=== PATIENT | female | born 1945 | race Caucasian/White ===

== ENCOUNTER 2016-07-04 22:10 | Inpatient (IN) | payer OTHER ==
--- NOTE | ~2016-07-04 | CN ---
Consultation Report [facility] [address] [place]. [address] NAME: CHARLENE OWENS : 41 STATUS : ADM IN PAT#: [id number] AGE: 70 ADM/REG DATE : 07/04/16 MR#: [id number] REPORT SERV DATE: 07/09/16 DICTATED BY: AKIRA LOZANO DATE: 07/08/16 REPORT STATUS : Draft TRANSCRIBED BY: MODL DATE: 07/08/16 NEPHROLOGY CONSULT DATE OF CONSULTATION: 07/08/2016 REASON FOR CONSULTATION: Acute renal failure. HISTORY OF PRESENT ILLNESS: Old records from recent [facility] admission were reviewed in preparation for this consultation. The patient was seen previously by Dr. Damon. She was admitted to [facility] on 07/02/2016 with acute shortness of breath as well as nausea and vomiting and abdominal pain. She had recently had bacteremia and grown out MSSE and blood cultures. She was treated through that and had been doing well. She had undergone EGD on 07/02/2016 showed nonerosive esophagitis and gastritis. Within 24 hours after that, she developed right upper arm weakness and head CT showed no acute process. Creatinine had worsened from baseline of 1.36 when she came in on 06/25/2016 and had gradually increased to a level of 2.4 mg/dL on 07/04/2016 when my partner saw her at [facility], [place]. She was transferred to [facility] with a creatinine of 3 mg/dL on 07/05/2016. The creatinine had stayed around that level for the subsequent two days and starting late in the day on 07/06/2016. She was started on bolus Bumex infusions. She had prompt diuresis of about 3400 mL over the ensuing 36 to 48 hours. Creatinine has dropped down to 2.35 mg/dL today. She developed ventricular tachycardia late in the day today. Did not have any obvious episodes of hypotension that were visualized. Her systolic got as low as perhaps 110 mmHg. She maintains urinary output on Bumex infusion of 0.5 mg/hour. She was finally converted to sinus rhythm with procainamide. She was seen by Dr. Gutierrez. She is tentatively planned for coronary arteriography tomorrow with left-sided heart catheterization, and I would assume ventriculogram. She has substantial systolic dysfunction noted on echocardiogram that apparently has worsened since she was at [facility]. There is certainly concern that she is having ischemic cardiomyopathy that is acute. She remains in acute renal failure from the original admission at [facility]. Again, she is nonoliguric on loop diuretics. The patient and her family members understand there is significant risk with IV contrast in the setting of ongoing acute renal failure. They understand the risk of her possibly needing dialysis. PAST MEDICAL HISTORY: 1. Longstanding diabetes. 2. Hypertension. 3. Hyperlipidemia. 4. Recent MSSE bacteremia on blood cultures at [facility] which apparently had cleared. She had a transesophageal echocardiogram that was negative for endocarditis. 5. Atrial fibrillation noted at [facility]. 6. COPD. 7. Remote cervical cancer. 8. Acute systolic congestive heart failure as described. 9. Peripheral vascular disease. Consultation Report [facility] [address] [place]. [address] NAME: CHARLENE OWENS : 41 STATUS : ADM IN PAT#: [id number] AGE: 70 ADM/REG DATE : 07/04/16 MR#: [id number] REPORT SERV DATE: 07/09/16 DICTATED BY: AKIRA LOZANO DATE: 07/08/16 REPORT STATUS : Draft TRANSCRIBED BY: JEROME DATE: 07/08/16 HOME MEDICATIONS: Benazepril, gabapentin, glimepiride, metoprolol, simvastatin. Current MAR was reviewed. Notably she is still receiving cefepime and also, she is on a Bumex continuous infusion 0.5 mg/hour. ALLERGIES: NO KNOWN DRUG ALLERGIES. SOCIAL HISTORY: She is . Has two grown children and several grandchildren. Also, twin sister. She is a 50-pack a year smoker and was still smoking up to the time of admission. She does not abuse alcohol or any other illicit substances. FAMILY HISTORY: Her mother of complications related to breast cancer. She had a sibling with diabetes. REVIEW OF SYSTEMS: GENERAL: no fevers or chills during her time at [facility]. GI: Very poor appetite. She is actually receiving intravenous amino acids. She denies vomiting or diarrhea at this time. : She has a Austin catheter in place. RESPIRATORY: She notes substantial dyspnea on exertion with conversation. She is getting a system with nasal cannula oxygen and maintaining 94% saturation with 4 L per minute. She is getting placed a little bit later tonight on some BiPAP to assist with breathing while she tries to rest. CARDIOVASCULAR: At present, she denies chest pain. She does have peripheral edema and had noted that she was brought over to [facility]. All other review of systems was negative. PHYSICAL EXAMINATION: VITAL SIGNS: Temperature 97.7, heart rate 79, respiratory rate 24, blood pressure 122/64. GENERAL: She is chronically ill-appearing, elderly female, who is alert, lucid, conversational and in no distress. HEENT: Normocephalic, atraumatic. External ears and nose normal. Sinuses were nontender. Oropharynx, mucous membranes are slightly dry. Hyperemic with some wrinkling over the tongue. No acute exudates. She has some missing teeth. Eye exam, lids and conjunctivae are free of any hemorrhage or exudates. Sclerae anicteric. Pupils are equal, round, and reactive to light. Extraocular motor function is intact. NECK: Easily movable without meningismus. No palpable masses or nodules. Trachea midline. Minimal jugular venous distention presently. LYMPHATIC: Anterior-posterior neck, supraclavicular, abdominal regions were free of lymphadenopathy. RESPIRATORY: She is tachypneic, but is able to uphold conversation. Auscultation reveals basilar crackles on both sides. No wheezes at present. Breath sounds are somewhat distant. CARDIOVASCULAR: Regular rate and rhythm is appreciated with no evident murmur by my examination, though I suspect,I should have heard one based on the echocardiogram findings. She has 2+ pitting dependent edema bilateral lower extremities. No peripheral cyanosis. ABDOMEN: Soft, mildly distended. Positive bowel sounds noted. No guarding to palpation. Consultation Report [facility] [address] [place]. [address] NAME: CHARLENE OWENS : 41 STATUS : ADM IN PAT#: [id number] AGE: 70 ADM/REG DATE : 07/04/16 MR#: [id number] REPORT SERV DATE: 07/09/16 DICTATED BY: AKIRA LOZANO DATE: 07/08/16 REPORT STATUS : Draft TRANSCRIBED BY: JEROME DATE: 07/08/16 No ascites on percussion. SKIN: No rashes breakdown or discoloration. Skin turgor was within normal limits. STUDIES: Chest x-ray, positive cardiomegaly noted with left basilar opacity noted which could represent effusion or infiltrate or other consolidation. Urinalysis from 07/06/2016, specific gravity 1.012, pH 5, negative protein, negative glucose, trace ketones, large amount of leukocyte esterase, large amount of hemoglobin, negative nitrites. Microscopy revealed 36 red blood cells, 8 white blood cells, 17 is squamous epithelial cells, and 28 hyaline casts. Chemistry: Sodium 139, potassium 3.6, chloride 98, CO2 of 28, BUN 49, creatinine 2.35, glucose 163 lactate 1.1. Albumin 2.5, phosphorus 3.3. CBC: White cell count 11.5, hemoglobin 10.6, hematocrit 30.5, platelets 441. IMPRESSIONS: 1. Acute kidney injury, which may represent acute tubular necrosis to some degree. She also may have a cardiorenal-type picture with on going systolic dysfunction and severe mitral regurgitation noted on echocardiogram. Left ventricular ejection fraction apparent was down to 30% on her echocardiogram yesterday. 2. Acute systolic congestive heart failure with acute arrhythmias and also severe mitral regurgitation noted on echocardiogram with suspected papillary muscle dysfunction. She is suspected of having occult coronary ischemia causing all of this. 3. Ventricular tachycardia episode today, it is finally treated successfully with procainamide infusion. 4. Recent atrial fibrillation. 5. Recent MSSE bacteremia, which is apparently clear. 6. Possible chronic kidney disease, stage III. 7. Peripheral edema, which the patient indicates is definitely improved over the past 36 hours. She has diuresed 3400 mL on IV Bumex infusions. She is very high risk for acute kidney injury upon current acute kidney injury in the setting of IV contrast administration. But my opinion is that she needs to study and other than dialysis catheter placement really nothing else can be done to prepare us for what might happen after she receives more IV contrast. I explained the very high risk of renal failure after IV contrast to the patient and her family members. They understand that there is risk that she may need hemodialysis or other renal replacement therapy following the procedures. Apparently, all are prepared to undertake this risk. PLAN/RECOMMENDATION: 1. Proceed with left heart catheterization tomorrow if desired. 2. Vas-Cath placement can be undertaken tomorrow or can wait until we have lab work back the following day. 3. Follow volume status and lab work daily. 4. I am okay with the current Bumex infusion 0.5 mg/hour. She will be able to better Consultation Report [facility] [id number] [place]. [address] NAME: CHARLENE OWENS : 41 STATUS : ADM IN [facility]#: [id number] AGE: 70 ADM/REG DATE : 07/04/16 MR#: [id number] REPORT SERV DATE: 07/09/16 DICTATED BY: AKIRA LOZANO DATE: 07/08/16 REPORT STATUS : Draft TRANSCRIBED BY: JEROME DATE: 07/08/16 tolerate coronary arteriogram if she has less propensity towards orthopnea during the study. 5. Our group will follow carefully. Thank you for consulting me in the care of this complicated patient. PAVAN/JEROME Akira Lozano M.D. / [id number] CC: Phan Dowd
--- NOTE | ~2016-07-04 | IDS ---
Interim Discharge Summary [facility] [address]. [address] NAME: CHARLENE OWENS : 41 STATUS : ADM IN [facility]#: [id number] AGE: 70 ADM/REG DATE : 07/04/16 MR#: [id number] REPORT SERV DATE: 07/19/16 DICTATED BY: ABEBE DAVID IV DATE: 07/18/16 REPORT STATUS : Draft TRANSCRIBED BY: JEROME DATE: 07/18/16 ADMISSION DATE: 07/04/2016 DISCHARGE DATE: ADMITTING DIAGNOSES: 1. Hypoxemic respiratory failure, now extubated. 2. Non-ST elevation myocardial infarction, requiring stents to both the right coronary artery and left circ. 3. Acute kidney injury, now on dialysis. 4. Chronic obstructive pulmonary disease. 5. Cerebrovascular disease and cervical spine disease with weakness and clonus of the lower extremities. 6. Right upper extremity deep vein thrombosis. 7. Atelectasis, possible effusion on the left. 8. Diabetes mellitus. 9. Elevated cholesterol. CONSULTANTS: 1. Cardiology on 07/06/2016. 2. Nephrology on 07/09/2016. 3. Neurology on 07/15/2016. PROCEDURES: The patient underwent MRI of the brain on 07/08/2016 demonstrating a microvascular disease. She had a swallow evaluation on 07/08/2016 which she passed. She had respiratory failure on 07/09/2016, requiring intubation and was extubated finally on 07/14/2016. She had a cardiac catheterization on 07/09/2016 with a stent to the RCA and then again on 07/11/2016 with stent to the left circ lesion. She had an ultrasound of her carotids on 07/10/2016 demonstrating a left carotid plaque. She had a PermCath placement on 07/13/2016 with CRRT initiated on that date. She had a MRI of the neck and brain demonstrating a left MCA stroke with some cervical stenosis. She had initial ultrasound on 07/12/2016 of both her upper and lower extremities which were negative, and she had a repeat ultrasound on 07/17/2016 demonstrating a right axillary and brachial thrombus for which she is on Eliquis. HOSPITAL COURSE: The patient was admitted and transferred by Dr. Dailey on 07/04/2016 from [facility], the patient with elevated troponins. She had elevated creatinine for which there was some delay in going to the laborer landscape. The patient had clinical deterioration over the ensuing days for which she underwent intubation on 07/09/2016. She ended up going to the laborer landscape which demonstrated coronary disease for which she underwent a staging angioplasty and stent to the RCA on 07/09/2016 and left circ on 07/11/2016. The patient had worsening renal function for which a PermCath was placed on the 07/13/2016, and she underwent CRRT initiated on the 07/13/2016 as well. She underwent daily weaning trials and was successfully extubated on 07/14/2016. On clinical exam, she is found to have bilateral lower extremity clonus with weakness in the right upper extremity. She previously had ultrasound as noted. We had Neurology consulted, and an MRI was ultimately obtained of the neck and the brain. This demonstrating findings of probable spinal stenosis as well as a Interim Discharge Summary [address]. [address] NAME: CHARLENE OWENS : 41 STATUS : ADM IN [facility]#: [id number] AGE: 70 ADM/REG DATE : 07/04/16 MR#: [id number] REPORT SERV DATE: 07/19/16 DICTATED BY: ABEBE DAVID IV DATE: 07/18/16 REPORT STATUS : Draft TRANSCRIBED BY: JEROME DATE: 07/18/16 previous stroke. She is currently on Plavix and aspirin for her vascular disease. She was successfully extubated on 07/14/2016 and had required BiPAP at nighttime, however, currently is refusing. She is on bronchodilator medications. She continued to have both clinical and radiographic evidence for left lower lobe atelectasis with possible effusion which will need to be followed. She is on EZPAP, bronchodilator medications as well as Acapella valve. The patient is now on hemodialysis which she receives three times a week and received today with determination of continued dialysis on whether she responds to diuretic therapy. GREGORY/JEROME Abebe David IV, M.D. / [id number] CC: Phan Dowd
--- NOTE | ~2016-07-04 | DS ---
Discharge Summary [facility] [address] [place]. [address] NAME: CHARLENE OWENS : 41 STATUS : ADM IN [facility]#: [id number] AGE: 70 ADM/REG DATE : 07/04/16 MR#: [id number] REPORT SERV DATE: 08/08/16 DICTATED BY: AKIRA SHORT DATE: 08/07/16 REPORT STATUS : Draft TRANSCRIBED BY: MODL DATE: 08/07/16 ADMISSION DATE: 07/04/2016 DISCHARGE DATE: ADDENDUM: This dictation is an addition to interim discharge summary dictated by Dr. Zuñiga on 08/05/2016. I assumed care of the patient on 08/05/2016. At the time of my assumption of care, the patient was status post a swallow study, which was positive for aspiration. The patient was placed n.p.o. and the patient and family were in the midst of discussions to determine the utility of PEG tube. Upon my resumption of care, I discussed the benefit versus risk of PEG tube placement. Family decided that they would go ahead and obtain a PEG tube. GI was consulted to assist with tube placement. Prior to PEG tube placement, a modified barium swallow study was ordered to definitively test for aspiration. The patient underwent the procedure and passed the swallow study. Recommendations were for the patient to be started on mechanical soft diet, which the patient was resumed. Given her history of GI bleed and given the anticipation of PEG tube placement, her anticoagulation for her acute DVT was held. Given that the patient no longer has evidence of GI bleed and given that there is no further need for a PEG tube study, the patient has been restarted on anticoagulation with Eliquis. Per recommendation by Physical Therapy, plan was to discharge the patient to [facility]. The patient has received insurance approval for facility. Given clearance by Cardiology and Nephrology and given her hemodynamic stability with completion of workup, the patient will be discharged to [facility]. Plan has been discussed with the patient, who voices understanding. DISCHARGE EXAM: VITAL SIGNS: Blood pressure 123/53 with a pulse of 93, respiration 16, O2 saturation 96%, temperature 97.6. GENERAL: The patient lying in bed, in no acute distress. Appears stated age. HEENT: Normocephalic, atraumatic. The patient appearing to be wearing nasal cannula. Trachea midline and symmetric. CHEST: Nontender to palpation. CARDIOVASCULAR: Regular rate and rhythm. S1, S2. No murmurs, rubs, or gallops. LUNGS: Anterior lung mata are clear to auscultation. The patient also had normal work of breathing. ABDOMEN: Obese. Positive bowel sounds. Nontender. Nondistended. NEUROLOGIC: Alert and oriented x3. Right-sided weakness noted. DISCHARGE MEDICATIONS: Aspirin 81 mg p.o. daily, amiodarone 200 mg p.o. twice a day, atorvastatin 80 mg p.o. at bedtime, Dulcolax 10 mg [place] daily, Carvedilol 12.5 mg p.o. twice a day, Plavix 75 mg p.o. daily, Colace 100 mg p.o. twice a day, ferrous sulfate 300 mg p.o. twice a day, insulin sliding scale, pantoprazole 40 mg p.o. before breakfast, simethicone 180 mg p.o. three times a day, budesonide 0.5 mg inhalation twice a day, DuoNebs 3 mL inhalation q.4 hours while awake, Eliquis 10 mg twice a day for seven days then stop and decrease dose to 5 mg b.i.d. DISPOSITION: The patient will be discharged to [facility]. Discharge Summary [address] [address] NAME: CHARLENE OWENS : 41 STATUS : ADM IN [facility]#: [id number] AGE: 70 ADM/REG DATE : 07/04/16 MR#: [id number] REPORT SERV DATE: 08/08/16 DICTATED BY: AKIRA SHORT DATE: 08/07/16 REPORT STATUS : Draft TRANSCRIBED BY: JEROME DATE: 08/07/16 ACTIVITY: As tolerated. DIET: Mechanical soft diet. Greater than 30 minutes was spent planning and coordinating discharge, medication reconciliation, writing prescription, and dictation of note. ELIO/JEROME Akira Short MD / [id number] CC: MD ELLEN Mackey
--- NOTE | ~2016-07-04 | CN ---
Consultation Report [facility] [address] [place]. [address] NAME: CHARLENE OWENS : 41 STATUS : ADM IN [facility]#: [id number] AGE: 70 ADM/REG DATE : 07/04/16 MR#: [id number] REPORT SERV DATE: 07/25/16 DICTATED BY: MALLORY CARTER DATE: 07/25/16 REPORT STATUS : Draft TRANSCRIBED BY: MODL DATE: 07/25/16 GI CONSULTATION. DATE OF CONSULTATION: 07/24/2016 REASON FOR CONSULTATION: Coffee-ground emesis. HISTORY OF PRESENT ILLNESS: Ms. Owens is a 70-year-old white female who initially presented in June with respiratory failure, was transferred from [facility] on 07/04/2016. Echocardiogram showed ischemic cardiomyopathy with an ejection fraction of 45% with mild pulmonary hypertension. Because of respiratory failure, she was placed on BiPAP, but needed to be intubated eventually and was admitted to the CCU. She was found to have an N-STEMI. She was started on Eliquis. She has been gradually improving throughout her hospitalization and is being evaluated by physical therapy. It was noted earlier this hospitalization, however, recently, but her abdomen particularly in the epigastrium was getting increasingly distended, and she was having some nausea. An NG tube was subsequently placed to low intermittent suction and earlier today (07/24/2016), she began to have coffee-ground output. Her last bowel movement was yesterday, was found to be brown. Denies any melena or hematochezia. Her vital signs have remained stable. Her H and H have also remained stable at 7.9 and 26.2. Her prior H and H were 7.2 and 23.5, platelets 285. Her last INR on 07/16 was 1.5, none has been drawn since. PAST MEDICAL HISTORY: Hypertension, diabetes, dyslipidemia, DVT, cervical cancer, symptomatic dysmotility. PAST SURGICAL HISTORY: Tonsillectomy, hysterectomy, laparoscopic cholecystectomy, appendectomy, left hand surgery. SOCIAL HISTORY: Continues to smoke a pack per day x55 years. FAMILY HISTORY: Breast cancer, diabetes. MEDICATIONS: Reviewed. ALLERGIES: REVIEWED. PHYSICAL EXAMINATION: VITAL SIGNS: The patient is afebrile. Her vital signs are stable. GENERAL: The patient is awake, alert, and oriented, has an NG tube to low intermittent suction. HEENT: Atraumatic, normocephalic. Anicteric. Mucous membranes moist. CARDIAC: S1, S2. CHEST: Poor inspiratory effort, but appears to be clear. ABDOMEN: Soft, obese, nontender, somewhat distended, but nontender. Bowel sounds Consultation Report [facility] [address] [place]. [address] NAME: CHARLENE OWENS : 41 STATUS : ADM IN PAT#: [id number] AGE: 70 ADM/REG DATE : 07/04/16 MR#: [id number] REPORT SERV DATE: 07/25/16 DICTATED BY: MALLORY CARTER DATE: 07/25/16 REPORT STATUS : Draft TRANSCRIBED BY: JEROME DATE: 07/25/16 hypoactive. LABORATORY DATA: Show WBC 6.8, hemoglobin 7.9, hematocrit 26.2, MCV 92.9, platelets 284. INR is 1.5. Sodium 142, potassium 4.4, chloride 107, bicarb 25, BUN 36, creatinine 4.41, glucose 123. IMPRESSION AND PLAN: Suspect upper gastrointestinal bleed. Continue serial H and H, and transfuse until hemoglobin above 7. We will definitely repeat PT/INR as her last INR was at 1.5 on 07/16. Her anticoagulation is for history DVT as well as her recent N-STEMI. We will plan for an EGD with anesthesia to sedate pending these results. Continue Protonix and supportive care. We will increase her Protonix. She is only on p.o. once daily currently. CATALINA/JEROME Mallory Carter MD / [id number] CC: MD Rob Mackey
--- NOTE | ~2016-07-04 | CN ---
Consultation Report [facility] [address] [place]. [address] NAME: CHARLENE OWENS : 41 STATUS : ADM IN PAT#: [id number] AGE: 70 ADM/REG DATE : 07/04/16 MR#: [id number] REPORT SERV DATE: 07/06/16 DICTATED BY: AN GUTIERREZ DATE: 07/05/16 REPORT STATUS : Draft TRANSCRIBED BY: JEROME DATE: 07/05/16 CARDIOLOGY CONSULTATION DATE OF CONSULTATION: INDICATION: Cardiomyopathy with EF 45%, elevated troponins. HISTORY: The patient is a 70-year-old white female, who is admitted from [facility]. She recounts visiting the emergency room on June 26, was told that she had the flu and was subsequently called back at 3 a.m. on June 27 for coagulase-negative staph in her blood cultures. She initially presented with nausea and vomiting. She was seen in consultation by Dr. Wilson due to the epigastric discomfort and elevated troponins. She described the pain as a sudden gripping cramping sensation in the epigastrium radiating to the right chest which occurred generally after eating. She had no exertional chest discomfort or prior cardiac history. She drifted in an out of atrial fibrillation. She has a 30-year history of tobacco use, 4 cigarettes per day or less. She has a history of hypertension, diabetes, and hyperlipidemia. CURRENT HOME MEDICATIONS: Medications at time of transfer; amiodarone 400 b.i.d.; aspirin 81 a day, atorvastatin 20 a day, budesonide inhaler, furosemide, insulin sliding scale, ipratropium albuterol, metoprolol 100 b.i.d., nitroglycerin p.r.n. pantoprazole 40 a day, polyethylene glycol and simethicone. ALLERGIES OR INTOLERANCES: None reported. SOCIAL HISTORY: , 2 children. Smoked a pack per day for 55 years. FAMILY HISTORY: Positive for mother of breast cancer. Father in an accident. She has 3 siblings, one with a history of complications from diabetes. PAST MEDICAL HISTORY/REVIEW OF SYSTEMS: Positive for the hypertension, type 2 diabetes mellitus, hyperlipidemia, previous cervical cancer and reflex sympathetic dystrophy. In addition, she has been evaluated and found to have high risk for aspiration. There is a history of peripheral vascular disease. PHYSICAL EXAMINATION: GENERAL: A 70-year-old white female, pleasant on admission. VITAL SIGNS: Blood pressure 110/70, pulse 90-110 and regular, respirations 20. SKIN: No xanthelasmas. HEENT: She is normocephalic. There is no pallor. Sclerae white. JVD is not elevated. CHEST: S1 normal. S2 physiologic. No gallops or murmurs. ABDOMEN: Without tenderness. EXTREMITIES: Without edema. No clubbing. NEUROLOGIC: No focal deficits. There is evidence for reflex sympathetic dystrophy in the Consultation Report [facility] [address] [facility] [address] [place]. [address] NAME: CHARLENE OWENS : 41 STATUS : ADM IN [facility]#: [id number] AGE: 70 ADM/REG DATE : 07/04/16 MR#: [id number] REPORT SERV DATE: 07/06/16 DICTATED BY: AN GUTIERREZ DATE: 07/05/16 REPORT STATUS : Draft TRANSCRIBED BY: JEROME DATE: 07/05/16 right arm. LABORATORY DATA: Hemoglobin 11.4, hematocrit 35.8. Platelet count 342,000. White count 10.5, BNP 3017. Troponin 5.07. TSH 1.43. In addition, she had an EGD and was found have nonerosive gastritis. An echocardiogram showed LVEF of 45% with akinesis of the basal inferolateral segment and basal inferior segments. There is moderate left atrial enlargement. Mild mitral annular calcification. Mild aortic sclerosis. There is elevated RSVP of 55 mmHg. She had carotid Dopplers, which showed grade 1 flow bilaterally. ECG showed sinus rhythm with small Q-waves in the inferior leads. No acute repolarization changes were noted. Recently her BUN is 32, creatinine 1.22. On her CT scan, she also had an abdominal hernia. IMPRESSION: 1. Elevated troponins, possibly a type 2/demand type myocardial infarction. We will continue to evaluate her on as her course progresses. She is on appropriate guidelines based medical therapy. 2. Diabetes. 3. Hypertension. 4. Hyperlipidemia. 5. Positive blood cultures for which she is on appropriate antibiotic therapy. At some point, MPI or further evaluation of her coronary flow coronary, coronary anatomy may be appropriate. For the time being, however, supportive care is reasonable. Further recommendations as her course evolves. CYNTHIA/JEROME An Gutierrez M.D. / [id number]
--- NOTE | ~2016-07-04 | CN ---
Consultation Report [facility] [address] [place]. [address] NAME: CHARLENE OWENS : 41 STATUS : ADM IN PAT#: [id number] AGE: 70 ADM/REG DATE : 07/04/16 MR#: [id number] REPORT SERV DATE: 08/07/16 DICTATED BY: ASIF BERNSTEIN DATE: 08/07/16 REPORT STATUS : Draft TRANSCRIBED BY: MODL DATE: 08/07/16 PSYCHIATRIC CONSULTATION DATE OF CONSULTATION: 08/07/2016 I reviewed the patient's extensive medical records. HISTORY OF PRESENT ILLNESS: She has had a very prolonged hospitalization, with multisystem disease and complications. She is status post intubation for respiratory failure, status post CVA with right hemiparesis, NSTEMI, YURY currently on hemodialysis, COPD, DM, atelectasis, and pleural infusions, DVT of right arm, SBO now resolved, upper GI bleed apparently caused by NG tube and possibly other issues. On 08/01/2016, she was started on Remeron 15 mg at bedtime probably to address her anorexia. However, she now is in need of a PEG tube. PAST PSYCHIATRIC HISTORY: The patient reported that she has suffered from depression in the past. She appeared to be too weak to elaborate on this. However, her daughter who was at the bedside was able to give further history. The daughter said that over the years the patient has had a tendency to cry easily and frequently. She took an antidepressant medication for a number of years which was somewhat helpful. A review of the records from [facility] did not include any antidepressant medication in her home medication list. FAMILY HISTORY: Apparently, there is some history of depression in the family. SOCIAL HISTORY: She is in her third marriage. Her and daughter were at the bedside. MENTAL STATUS: She was awake. She was cooperative in attitude. She was very anergic with a weak voice. Her mood appeared to be fairly good at this time. Her affect was appropriate. She was motivated to go ahead with the PEG tube. Her thinking was logical. She had no delusions. She had no hallucinations. She was oriented to time, place, and person. DIAGNOSIS: Depressive disorder, NOS. RECOMMENDATIONS: I will discontinue the Remeron and start her on Zoloft 25 mg p.o. daily. The Zoloft can be increased to a 50 mg dose after a week or two, if she appears to be tolerating it. I will sign off. DK/MODL Asif Bernstein M.D. / [id number] Consultation Report [address] [facility] [address] NAME: CHARLENE OWENS : 41 STATUS : ADM IN PAT#: [id number] AGE: 70 ADM/REG DATE : 07/04/16 MR#: [id number] REPORT SERV DATE: 08/07/16 DICTATED BY: ASIF BERNSTEIN DATE: 08/07/16 REPORT STATUS : Draft TRANSCRIBED BY: JEROME DATE: 08/07/16 CC: MD ELLEN Mackey
--- NOTE | ~2016-07-04 | OP ---
Record Of Operation [facility] [address] [place] [address] NAME: CHARLENE OWENS : 41 STATUS : ADM IN [facility]#: [id number] AGE: 70 ADM/REG DATE : 07/04/16 MR#: [id number] REPORT SERV DATE: 07/09/16 DICTATED BY: YUE SO DATE: 07/09/16 REPORT STATUS : Draft TRANSCRIBED BY: MODL DATE: 07/09/16 DATE OF PROCEDURE: 07/09/2016 PROCEDURE: Intubation. REASON: Hypercapnic hypoxic respiratory failure. BiPAP ineffective. The patient is a full code. The patient was pre-oxygenated with 100% oxygen and monitored throughout the procedure. She was started on Levophed secondary to a low blood pressure. She received 20 mg of IV etomidate and 3 mL of Diprivan during the procedure. O2 sats were 99% throughout. A curved blade was used for intubation. A 7.5 endotracheal tube was successfully placed on the first attempt with good color change on the CO2 sensor and bilateral breath sounds heard. /JEROME Yue So M.D. / [id number] CC: Phan Dowd
--- NOTE | ~2016-07-04 | CN ---
Consultation Report [facility] [address] [place]. [address] NAME: CHARLENE OWENS : 41 STATUS : ADM IN PAT#: [id number] AGE: 70 ADM/REG DATE : 07/04/16 MR#: [id number] REPORT SERV DATE: 07/15/16 DICTATED BY: DATE: REPORT STATUS : Draft TRANSCRIBED BY: MODL DATE: 07/15/16 NEUROLOGY CONSULTATION DATE OF CONSULTATION: 07/15/2016 REASON FOR CONSULT: Right hemiparesis. HISTORY OF PRESENT ILLNESS: This is a 70-year-old female transferred from [facility] secondary to elevated troponin with the patient needing cardiac catheterization. The patient upon arrival was noted to have cardiac arrhythmia as well as urinary tract infection with the patient's cardiac catheterization delayed secondary to other medical issues. The patient subsequently received cardiac catheterization with the patient noted to have stent placement and subsequently developed acute renal insufficiency, requiring CRRT for management. The patient since then was noted to have persistent right-sided weakness with the patient reports the symptom has been ongoing for the past 2 weeks, otherwise denies any dysarthria. The patient does report slow response as well as speech but denies any significant aphasia. Denies numbness or tingling. The patient at baseline ambulates with a walker as well as a cane, the patient was not wheelchair bound prior to the hospitalization. Reports right hemiparesis is about stable since the onset. No recent changes in medication as well as recent illness prior to the hospitalization. PAST MEDICAL HISTORY: Significant for hypertension, diabetes, which she is insulin dependent, hyperlipidemia, cervical cancer in the past, and reflex sympathetic dystrophy. SOCIAL HISTORY: Reports ongoing tobacco usage but denies alcohol or illicit drug usage. FAMILY HISTORY: Significant for breast cancer, motor vehicle accident, and history of diabetes. REVIEW OF SYSTEMS: Negative except for those mentioned in the HPI. ALLERGIES: THE PATIENT REPORTS ALLERGY TO CODEINE. HOME MEDICATIONS: The patient's home medications consist of DuoNeb; amiodarone; aspirin; Pulmicort; Ancef; Lasix; NovoLog; Lopressor, nitroglycerin; Protonix; MiraLAX; and simethicone. The patient's hospital medication otherwise consist of an amiodarone drip, aspirin, Brovana, Colace, DuoNeb, Proventil, folic acid, subcu heparin; Lipitor; Maxipime; melatonin; MiraLAX; simethicone; NovoLog; Plavix; Protonix; and Pulmicort. PHYSICAL EXAMINATION: VITAL SIGNS: Overnight the patient was noted to have vital signs with T-max of 98.7, heart Consultation Report [facility] [address] [place]. [address] NAME: CHARLENE OWENS : 41 STATUS : ADM IN PAT#: [id number] AGE: 70 ADM/REG DATE : 07/04/16 MR#: [id number] REPORT SERV DATE: 07/15/16 DICTATED BY: DATE: REPORT STATUS : Draft TRANSCRIBED BY: MODL DATE: 07/15/16 rate of 77 to 91, respirations of 22 to 29, and blood pressure of 124 to 170 over 58 to 77. GENERAL: The patient is well developed, well nourished, in no acute distress. CARDIOVASCULAR: Mildly tachycardic. No carotid bruits were otherwise auscultated. PULMONARY: Clear to auscultation bilaterally. NEUROLOGICAL: Generally the patient is alert, oriented to person, place, year, and month. Mild decreased attention span. Intact registration. Some difficulty with recall. Mild psychomotor slowing was noted at the time of evaluation. Otherwise follows simple and 2- step commands. Denies dysarthria. No aphasia was appreciated. The patient's pupils equal, round, and reactive to light. Horizontal eye movement was noted to be intact with intact [id number] response. Mild decreased nasolabial fold on the right at the time of evaluation, but otherwise reports symmetrical facial sensation. Midline tongue. Normal palatal movement. Decreased hearing in bilateral ears. The patient was noted to have trace movement in the right upper extremity, otherwise, was noted to have 2/5 right lower extremity movement with the patient reports symmetrical sensation in bilateral upper and lower extremity. The patient, in addition, was noted to have action tremor in the left upper extremity with the patient noted to have increased rigidity in the left upper extremity. Otherwise, 4/5 left upper extremity strength and 3/5 left lower extremity strength. The patient was noted to have 2+ reflexes throughout. Upgoing toe on bilateral plantar reflexes. Clonus was noted in the left lower extremity, but otherwise was unable to be elicited. On the right, the patient does have positive Suresh sign on the right upper extremity. Gait was not evaluated due to the patient's CRRT status, otherwise the patient demonstrated intention as well as action tremor with [id number] examination, no clear ataxia was otherwise seen. LABORATORY STUDIES: Demonstrated white blood cell count of 11.8, hemoglobin of 8.2, hematocrit of 24.9, and platelet count of 368. Chemistry Panel: Sodium of 139, potassium 3.7, chloride 103, bicarb 25, BUN is 13, creatinine is 1.09, glucose of 113, and calcium of 8.2. Serum ABG demonstrated pH of 7.38, pCO2 of 33, PO2 of 100, bicarb of 22.8, and O2 saturation of 97.4. Generalized atrophy as well as underlying white matter disease was noted. No acute process was appreciated. IMPRESSION: 1. Right hemiparesis. Reportedly 2 weeks duration. We will obtain MRI of the brain for evaluation of possible stroke. Meanwhile the patient was noted to have diffuse hyperreflexia as well as coldness elicited in the left lower extremity. As a result, there was also concern for possible C-spine. Pathology was associated. 2. Myopathy. We will check MRI of the C-spine as well as obtain PT/OT consultation for evaluation and treatment. RECOMMENDATION: 1. PT/OT. 2. MRI of the brain and C-spine without contrast. 3. Vitamin B12, folate, ammonia level with morning labs. Consultation Report [address] [place]. [address] NAME: CHARLENE OWENS : 41 STATUS : ADM IN [facility]#: [id number] AGE: 70 ADM/REG DATE : 07/04/16 MR#: [id number] REPORT SERV DATE: 07/15/16 DICTATED BY: DATE: REPORT STATUS : Draft TRANSCRIBED BY: MODL DATE: 07/15/16 [facility]/MODSelena Andrea Barron MD / [id number] CC: Phan Dowd
--- NOTE | ~2016-07-04 | HP ---
History And Physical [place] [id number] [facility] [place]. [address] NAME: CHARLENE OWENS : 41 STATUS : ADM IN [facility]#: [id number] AGE: 70 ADM/REG DATE : 07/04/16 MR#: [id number] REPORT SERV DATE: 07/05/16 DICTATED BY: YARA MAGALLANES DATE: 07/04/16 REPORT STATUS : Draft TRANSCRIBED BY: MODL DATE: 07/04/16 DATE OF ADMISSION: 07/04/2016 TIME: 2244 hours Seen in CCU bed 2. Transferred from [facility]. HISTORY OF PRESENT ILLNESS: The patient is a 70-year-old white female who spent approximately a week at [facility] She was admitted on June 27 there after having visited the ER 2 days prior. She was called back with complaints of nausea, vomiting, after review of her blood cultures revealed there were positive for a coagulase- negative Staph. Placed on antibiotics and sent her hospital. During her hospital stay, she was noted to have an elevated AST. She also developed some chest discomfort. Cardiology was consulted. They did an echocardiogram. After getting troponins back, they were elevated from 40 to 24. Echocardiogram showed areas of wall motion abnormality and they gave her diagnosis of ischemic cardiomyopathy with EF of 45% and some mild pulmonary hypertension. The patient was due to undergo a nuclear stress test, but had refused. The patient's breathing worsened, was placed on BiPAP and a request was sent to [facility]. PAST MEDICAL HISTORY: The patient has a past medical history significant for hypertension, diabetes non-insulin dependent, hyperlipidemia, cervical cancer, and reflex sympathetic dystrophy. PAST SURGICAL HISTORY: She is status post tonsillectomy, hysterectomy, laparoscopic cholecystectomy, left hand surgery and appendectomy. SOCIAL HISTORY: , 2 children. Smokes 1 pack per day for 55 years. FAMILY HISTORY: Significant for mother who of breast cancer. Father secondary to an accident. Two brothers, 1 sister. One was with history of diabetes. No known history of colon polyps, colon cancer, stomach cancer, pancreatic cancer, esophageal cancer, liver disease or inflammatory bowel. [place] [address] on day of admission at [facility] with an H and H of 13.9 and 43. Creatinine is 1.39, calcium 9.5. ALLERGIES: THE PATIENT HAS ALLERGY TO CODEINE. MEDICATIONS: Reviewed from [facility]; amiodarone 400 mg p.o. b.i.d., aspirin 81 mg chewable, atorvastatin 20 mg p.o. daily, budesonide by inhalation 0.5 mg, cefazolin 1 g IV q.12, Lasix 40 mg IV push, heparin flush, insulin NovoLog scale, ipratropium and albuterol DuoNebs, Lopressor 100 mg p.o. b.i.d., nitroglycerin ointment 1 inch q.6 hours, Protonix 40 mg p.o. daily, polyethylene glycol, MiraLAX b.i.d., simethicone, acetaminophen. REVIEW OF SYSTEMS: As noted above and reviewed from the hospital records. Otherwise, 14-point review except for the items mentioned above otherwise negative. History And Physical [address] [address] NAME: CHARLENE OWENS : 41 STATUS : ADM IN [facility]#: [id number] AGE: 70 ADM/REG DATE : 07/04/16 MR#: [id number] REPORT SERV DATE: 07/05/16 DICTATED BY: YARA MAGALLANES DATE: 07/04/16 REPORT STATUS : Draft TRANSCRIBED BY: JEROME DATE: 07/04/16 HOME MEDICINES: Included benazepril 20, Neurontin 300 t.i.d., glimepiride oral daily, Lopressor 100 b.i.d., simvastatin 20 and Zofran. The patient had undergone endoscopy for her nausea and vomiting and was found to have gastritis. LABORATORY DATA: Laboratory was reviewed from the previous hospital. Laboratories at the hospital done on 07/04/2016 revealed an H and H of 11.4 and 35.8, white count 35564, platelet count 342,000. CT of head was done and showed moderate involutional changes versus atrophy. No evidence of an acute UTILITY CLERK event or hemorrhage. Echocardiogram was done and showed moderate concentric left ventricular hypertrophy. EF of 45%. Right ventricle normal sized. Normal right ventricular function. Moderate left atrial enlargement. Normal right atrium. Right ventricular systolic pressure is elevated. Estimated RVSP is 55. Moderate TR. Aortic root appeared normal. There is stage II diastolic dysfunction and akinesis of the basal inferior wall segment and inferolateral segment as well. Carotid duplex bilateral studies were done for right upper extremity weakness. Findings: Right carotid artery peak systolic velocity 56 and the CCA/ICA 76 and ECA 153. The ICA/CCA peak on the right was 1.4 systolic ratio and end-diastolic 2.2. There is mild soft plaque in the right internal carotid artery. Left peak systolic velocities ratio is 1.6 and 1.5. There is hard plaque at the left internal carotid. Bilateral carotid artery waveform appears unremarkable. Normal antegrade flow in bilateral vertebral arteries. Ultrasound of upper extremity, arterial duplex right side for decreased radial pulse. The right upper extremity arterial waveform is triphasic and subclavian, otherwise biphasic. There is no detected significant stenosis by 2 dimensional imaging. Unremarkable prior upper extremity arterial duplex ultrasound. No evidence of upper right upper extremity deep venous thrombosis. The labs revealed an elevated AST, etiology unclear. This has been worked up by GI. The patient underwent CT of the abdomen and pelvis. Findings were marked right renal atrophy. Left renal cortex appears mildly tender. Left kidney is somewhat small in size. There is no hydronephrosis. Ureters are not dilated. Bladder is unremarkable. Adrenal gland is normal. Liver, bile duct, pancreas spleen are without acute finding. Bowel loops without acute finding. No adenopathy. There is no abnormal enhancement. Abdominal aorta is normal diameter. There is severe atherosclerotic change throughout the abdominal aorta and the medial arteries to include the mesenteric arteries and renal arteries. There is no evidence of bowel ischemia. Elevated troponins were noted on 06/30/2016 42, 33 and 24. AST had normalized over time. Creatinine was elevated to a bilirubin of 1.34, it is now slightly improved. Sodium 138, potassium 3.7, CO2 23, chloride 104, creatinine 1.20, BUN 25,. The patient is currently on IV Zithromax, IV Cardizem and Precedex, on BiPAP. Chest x-ray showed mild infiltrates and/or edema. According to report, x-rays are not with the patient. History And Physical [address] [address] NAME: CHARLENE OWENS : 41 STATUS : ADM IN [facility]#: [id number] AGE: 70 ADM/REG DATE : 07/04/16 MR#: [id number] REPORT SERV DATE: 07/05/16 DICTATED BY: YARA MAGALLANES DATE: 07/04/16 REPORT STATUS : Draft TRANSCRIBED BY: JEROME DATE: 07/04/16 EKG showed actually relatively minor changes in the segments. No elevated ST segments in the adjoining leads. PHYSICAL EXAMINATION: VITAL SIGNS: Blood pressure 110/70, pulse 90-110 and regular. She is currently afebrile. HEENT: Head is normocephalic. Sclerae and conjunctivae are clear. NECK: Supple. No JVD. CHEST: Decreased breath sounds bilaterally. CARDIAC: S1 and S2. Regular. I could not hear any murmurs. ABDOMEN: Soft and nontender. EXTREMITIES: No significant edema. There is evidence reflex sympathetic dystrophy in the arm. NECK: Supple. IMPRESSION: 1. Respiratory failure, on BiPAP, etiology unclear. 2. Possible septicemia due to a coagulase-negative Staph. 3. Acute on chronic renal insufficiency, gradually improving. 4. Gastritis by endoscopic biopsy. 5. Atrial fibrillation. 6. History of hypertension. 7. EKG abnormalities with elevated troponin by Dr. Wilson thought to be significant for acute myocardial infarction. 8. Ischemic cardiomyopathy, changes on echo. PLAN: We will continue antibiotic. We will get procalcitonin. Repeat x-ray. Repeat blood gas. Check blood chemistries. Consult Cardiology to see. MARISSA/JEROME Yara Magallanes M.D. / [id number]
--- NOTE | ~2016-07-04 | OP ---
Record Of Operation [facility] [address] [place]. [address] NAME: CHARLENE OWENS : [birth year] STATUS : ADM IN [facility]#: [id number] AGE: 70 ADM/REG DATE : 07/04/16 MR#: [id number] REPORT SERV DATE: 07/31/16 DICTATED BY: EDWIN MIXON DATE: 07/30/16 REPORT STATUS : Draft TRANSCRIBED BY: MODSelena DATE: 07/30/16 DATE OF PROCEDURE: 07/28/2016 PREOPERATIVE DIAGNOSIS: Nonfunctioning right IJ PermCath. POSTOPERATIVE DIAGNOSIS: Nonfunctioning right IJ PermCath. PROCEDURE: Right IJ PermCath exchange. SURGEON: Edwin Mixon M.D. PLASTIC PARTS DESIGNER: None. ANESTHESIA: MAC plus local. INDICATIONS: The patient is a 70-year-old female, who just had a PermCath placed recently. The PermCath is not working well and it was suspected that she has a hole in the catheter. Thus, she was consented for intervention. DESCRIPTION OF PROCEDURE: After informed consent was obtained, the patient was taken to the operating room and placed in the supine position on the operating table. Monitored anesthesia was administered. Her right neck and chest were prepped and draped in usual sterile fashion. I began with an x-ray of the catheter and found that it had backed up into the neck. A large portion of the catheter was subcutaneously positioned. Thus, I made a small skin incision along the right neck. I dissected out the PermCath. I clamped and divided it. I inserted a wire under fluoroscopic guidance. I inserted the intravascular and the subcutaneously tunneled portion. I exchanged out my gloves and cleaned up the area. I inserted a peel-away sheath over the aforementioned wire. I tunneled a new 19 cm curved HemoSplit catheter from the right chest to the right neck. I inserted the catheter into the peel-away sheath under fluoroscopy and confirmed that the catheter was not kinked. It aspirated and flushed well after I removed the peel-away sheath. The right neck wound was closed. The catheter was sutured in place. It was packed with heparin. A sterile dressing was applied. The patient tolerated the procedure well without any intraprocedural complications noted. TELEPHONE ORDER SUPERVISOR/JEROME Edwin Mixon M.D. / [id number] CC: Anamaria Zuñiga MD Record Of [address] [address] NAME: CHARLENE OWENS : [birth year] STATUS : ADM IN PAT#: [id number] AGE: 70 ADM/REG DATE : 07/04/16 MR#: [id number] REPORT SERV DATE: 07/31/16 DICTATED BY: EDWIN MIXON DATE: 07/30/16 REPORT STATUS : Draft TRANSCRIBED BY: JEROME DATE: 07/30/16 ELLEN Eli M.D.
--- NOTE | ~2016-07-04 | EGD ---
EGD REPORT [facility] [address] [address] NAME: TENISHA HERNANDEZ : 41 STATUS : ADM IN PAT#: [id number] AGE: 70 ADM/REG DATE : 07/04/16 MR#: [id number] REPORT SERV DATE: 07/29/16 DICTATED BY: MALLORY SHARMA DATE: 07/29/16 REPORT STATUS : Draft TRANSCRIBED BY: [facility] DATE: 07/29/16 [facility] Patient Name: Tenisha Hernandez Date of : 1945 Attending MD: MALLORY SHARMA, Procedure Date No Time: 07/29/2016 Procedure: Upper GI endoscopy Indications: Anemia, Coffee-ground emesis Referring MD: Rob Lazo Medicines: Propofol per Anesthesia Complications: No immediate complications. Estimated blood loss: None. Procedure: Pre-Anesthesia Assessment: - ASA Grade Assessment: IV - A patient with severe systemic disease that is a constant threat to life. After obtaining informed consent, the endoscope was passed under direct vision. Throughout the procedure, the patient's blood pressure, pulse, and oxygen saturations were monitored continuously. The GIF [id number] was introduced through the mouth, and advanced to the second part of duodenum. The upper GI endoscopy was accomplished with ease. The patient tolerated the procedure well. Findings: Areas of localized clean-based ulceration, likely representing trauma from recent nasogastric tube seen in the mid and distal esophagus. The Z-line was found 41 cm from the incisors. Localized mild inflammation characterized by congestion (edema) and erythema was found in the gastric body and in the gastric antrum. No biopsies or other specimens were collected for this exam. The duodenal bulb and 2nd part of the duodenum were normal. No biopsies or other specimens were collected for this exam. Impression: - Recent UGI Bleed likely due to NG trauma seen in the mid and distal esophagus in the setting of supratherapeutic INR (was 4.4) - Z-line 41 cm from the incisors. - Gastritis. No specimens collected. - Normal duodenal bulb and 2nd part of the duodenum. No specimens collected. Recommendation: - Return patient to [facility] for [facility] care. - Clear liquid diet today. - No aspirin, ibuprofen, naproxen, or other non-steroidal anti-inflammatory drugs. EGD REPORT [address] [address] NAME: TENISHA HERNANDEZ : [birth year] STATUS : ADM IN [facility]#: [id number] AGE: 70 ADM/REG DATE : 07/04/16 MR#: [id number] REPORT SERV DATE: 07/29/16 DICTATED BY: MALLORY SHARMA DATE: 07/29/16 REPORT STATUS : Draft TRANSCRIBED BY: [employer] DATE: 07/29/16 - Use Protonix (pantoprazole) 40 mg PO daily. - Continue present medications. Procedure Code(s): --- Professional --- 63650, Esophagogastroduodenoscopy, flexible, transoral; diagnostic, including collection of specimen(s) by brushing or washing, when performed (separate procedure) Diagnosis Code(s): --- Professional --- K29.70, Gastritis, unspecified, without bleeding D64.9, Anemia, unspecified K92.0, Hematemesis CPT copyright 2013 [employer]. All rights reserved. The codes documented in this report are preliminary and upon ventilation mechanic review may be revised to meet current compliance requirements. MALLORY SHARMA, 07/29/2016 5:52 PM This report has been signed electronically. Number of Addenda: 0 Note Initiated On: 07/29/2016 5:07 PM Scope Withdrawal Time 0 hours 0 minutes 0 seconds [address] [place], [place] [address]
--- NOTE | ~2016-07-04 | IDS ---
Interim Discharge Summary [facility] [address] [place]. [address] NAME: CHARLENE OWENS : 41 STATUS : ADM IN [facility]#: [id number] AGE: 70 ADM/REG DATE : 07/04/16 MR#: [id number] REPORT SERV DATE: 08/05/16 DICTATED BY: ANAMARIA ZIMMERMAN DATE: 08/04/16 REPORT STATUS : Draft TRANSCRIBED BY: JEROME DATE: 08/04/16 ADMISSION DATE: 07/04/2016 DISCHARGE DATE: CURRENT DIAGNOSES: 1. Hypoxic respiratory failure, intubated in the ICU. Successfully extubated, transferred to the medical floor. 2. Non-ST elevation myocardial infarction requiring stent to both the right coronary artery and left circumflex, currently on aspirin and Plavix. 3. Acute kidney injury which progressed to end-stage renal disease, currently on intermittent hemodialysis on Thursday, Wednesdays, and Fridays. 4. Chronic obstructive pulmonary disease. 5. Acute cerebrovascular accident with right-sided hemiparesis. 6. Right upper extremity deep vein thrombosis. 7. Atelectasis. 8. Diabetes mellitus. 9. Dyslipidemia. 10.Bilateral pleural effusion, status post thoracentesis on . 11.Upper GI bleed secondary to NG tube trauma, which has now resolved. 12.Aspiration risk. 13.Small-bowel obstruction, status post NG tube, currently resolved. CONSULTATION: 1. Cardiology, currently active. 2. Nephrology, currently active. 3. Neurology, currently active. 4. Gastroenterology, not active. HOSPITAL COURSE: For patient's hospital course in the ICU, please make reference to interim discharge summary dictated by Dr. Ezequiel David on 07/18/2016. HOSPITAL COURSE WHILE ON THE MEDICAL FLOOR: After the patient arrived on the floor, the patient remained stable. However, subsequently was noted to have complain of abdominal pain, abdominal distention, had a KUB that confirmed the presence of small-bowel obstruction. Subsequently, an NG tube was placed. However, the patient's NG tube was noted to be draining bloody gastric fluid. At the time patient's INR was noted to be supratherapeutic at about 4, this was noted to may have precipitated the patient's GI bleed. Gastroenterology was consulted that performed an upper endoscopy. The endoscopy showed the site of bleeding from the esophagus secondary to the NG tube trauma. The patient's NG tube was discontinued subsequently. Twenty-four hours after EGD, the patient had significant bowel movement with relief of small bowel obstruction. A CT of the abdomen confirmed a small bowel obstruction had resolved. The patient's diet was subsequently advanced. However, the patient continued to have episodes of aspiration. In the hospital, a repeat chest x-ray was done that shows bilateral pleural effusion. A CT scan of the chest was done that confirmed significant effusion drainable by thoracentesis. The patient underwent a thoracentesis of 1.2 L, was drained from the bilateral lungs, Interim Discharge Summary [address] [address] NAME: CHARLENE OWENS : [birth year] STATUS : ADM IN [facility]#: [id number] AGE: 70 ADM/REG DATE : 07/04/16 MR#: [id number] REPORT SERV DATE: 08/05/16 DICTATED BY: ANAMARIA ZIMMERMAN DATE: 08/04/16 REPORT STATUS : Draft TRANSCRIBED BY: JEROME DATE: 08/04/16 analysis of pleural fluid pending at the time of dictation of this interim summary. The patient reported significant relief in shortness of breath after thoracentesis. Denies any chest pain, palpitation. Vital blood pressure remained stable. No evidence of complications. Given recurrent episodes of aspiration in the hospital, a discussion was held with the family members about the role of PEG tube as the patient was noted to have had silent expiration on repeat swallow eval that was done on 07/16/2016. At this time of dictation, the patient is currently contemplating PEG tube. We will defer this decision to the oncoming physician that will take over the patient's care. CURRENT ACTIVE PROBLEMS: Include: 1. YURY with progression to end-stage renal disease, on hemodialysis, Thursday, Thursday, Thursday. 2. Aspiration risks pending contemplating PEG tube. Decision to be made in the a.m. 3. Bilateral pleural effusion, status post thoracentesis. 4. Left pleural effusion, status post arrest synthesis. 5. Right upper extremity acute DVT, here to restart Eliquis as patient's last INR was 2.0. If patient's INR becomes less than 2.0 and the patient declines PEG tube placement, the patient can be restarted back on Eliquis for the treatment of this acute DVT. 6. CVA with right hemiparesis for acute rehab placement, has been approved to [facility]. 7. NSTEMI, currently on aspirin and Plavix. 8. History of ventricular tachycardia, status post NSTEMI and PCI placement. The patient is currently on amiodarone, which is currently controlled. DISCHARGE DISPOSITION: Likely to [facility]. IOO/MODL Anamaria Zimmerman MD / [id number] CC: MD Rob Shaikh
--- NOTE | ~2016-07-04 | OP ---
Record Of Operation [facility] [address] [place]. [address] NAME: CHARLENE OWENS : 41 STATUS : ADM IN [facility]#: [id number] AGE: 70 ADM/REG DATE : 07/04/16 MR#: [id number] REPORT SERV DATE: 07/14/16 DICTATED BY: EDWIN MIXON DATE: 07/13/16 REPORT STATUS : Draft TRANSCRIBED BY: MODL DATE: 07/13/16 DATE OF PROCEDURE: 07/13/2016 PREOPERATIVE DIAGNOSIS: Acute kidney injury. POSTOPERATIVE DIAGNOSIS: Acute kidney injury. PROCEDURE: Right IJ PermCath. SURGEON: Edwin Mixon M.D. INFORMATION SYSTEMS SECURITY DEVELOPER: None. ANESTHESIA: General. INDICATIONS: The patient is a 70-year-old female who just underwent a coronary angiogram with stenting. She has acute kidney injury. Thus, she was consented for PermCath placement. DESCRIPTION OF PROCEDURE: After informed consent was obtained, the patient was taken to the operating room and placed in the supine position on the operating table. She was previously intubated, so general anesthesia was administered. The patient's right neck and chest were prepped and draped in usual sterile fashion. Ultrasound-guided access was obtained of the right internal jugular vein. The ultrasound image was documented on the chart. I passed a wire centrally. I anesthetized the right neck and chest. I tunneled a 19-cm curved HemoSplit catheter from the right chest to the right neck. I inserted a peel-away sheath over the aforementioned wire using fluoroscopic guidance. I subsequently inserted the catheter into the peel-away sheath under fluoroscopy and peeled away the sheath. I confirmed that the catheter was not kinked and that it aspirated and flushed well. The right neck wound was closed. The catheter was sutured in place and packed with heparin. The patient tolerated the procedure well without any intraprocedural complications noted. MARKO/JEROME Edwin Mixon M.D. / [id number] CC: Shane Asim, MAj Jo Jr, M.D.
[2016-07-05 00:22] LABS: BE (BASE EXCESS) -5.6 MEQ/L (0 +/- 2.5); BIPAP 16/6 cm.H2O; CARBOXYHEMOGLOBIN 0.3 % (0-3); HEMOBLOGIN CONTENT 12.1 G/DL (12-16); INSTRUMENT SERIAL # 35151; METHEMOGLOBIN 0.4 % (0-3); O2 CONTENT 16.5 VOL% (18-24); OPERATOR ID 13861; PCO2 (CO2 TENSION) 40 MMHG (35-45); PO2 (O2 TENSION) 100 MMHG (79-93); SAMPLE Arterial; pH 7.32 (7.37-7.43)
[2016-07-05 00:23] LABS: ALLENS TEST Pos
[2016-07-05 03:00] LABS: BASOPHILS 0.4 %; BASOPHILS ABSOLUTE 0.04 10/3/uL (0.0-0.16); EOSINOPHILS 0.1 %; EOSINOPHILS ABSOLUTE 0.01 10/3/uL (0.0-0.53); HEMOGLOBIN 11.2 g/dL (12.0-16.0); IMMATURE GRANULOCYTES 0.5 %; IMMATURE GRANULOCYTES ABSOLUTE 0.05 10/3/uL (0.0-0.11); LYMPHOCYTES ABSOLUTE 0.84 10/3/uL (0.67-4.30); MEAN CORPUS HGB CONC 32.6 g/dL (32.0-36.0); MEAN CORPUSCULAR HEMOGLOB 30.1 pg (26.0-34.0); MEAN CORPUSCULAR VOLUME 92.5 fL (80-100); MEAN PLATELET VOLUME 10.2 fL (9.2-13.0); MONOCYTES 14.5 %; MONOCYTES ABSOLUTE 1.53 10/3/uL (0.21-1.20); NEUTROPHILS 76.5 %; NEUTROPHILS ABSOLUTE 8.07 10/3/uL (2.02-8.40); PLATELET COUNT 400 10/3/uL (150-400); RBC DISTRIBUTION WIDTH 14.8 % (12.0-16.0); RED CELL COUNT 3.72 10/6/uL (4.0-5.6); WHITE BLOOD CELLS 10.5 10/3/uL (4.5-10.5)
[2016-07-05 03:01] LABS: HEMATOCRIT 34.4 % (36.0-48.0); MANUAL DIFF NO %
[2016-07-05 03:07] LABS: INTERNATIONAL NORMAL RATI 4.2 UNITS (-)
[2016-07-05 03:08] LABS: PARTIAL THROMBO TIME 85.3 SEC (22.5-37.2)
[2016-07-05 03:09] LABS: PROTIME (NOT ORD) 40.1 SEC (12.0-14.5)
[2016-07-05 03:18] LABS: B NATRIURETIC PEPTIDE (BNP) 3017.2 PG/ML (< 100.0)
[2016-07-05 03:21] LABS: CHLORIDE, SERUM 104 MMOL/L (96-112); FREE T4 1.34 NG/DL (0.76-1.46); PHOSPHORUS, SERUM 4.8 MG/DL (2.5-4.5); POTASSIUM, SERUM 4.2 MMOL/L (3.5-5.3); SGOT(AST) 16 U/L (5-40); SODIUM, SERUM 141 MMOL/L (135-148); TOTAL BILIRUBIN 0.3 MG/DL (0-1.2); TOTAL PROTEIN 6.2 G/DL (6.0-8.5)
[2016-07-05 03:22] LABS: A/G RATIO 0.5 (0.7-1.9); ALBUMIN 2.1 G/DL (3.5-5.0); ALKALINE PHOSPHATASE 79 U/L (45-117); BUN (BLOOD UREA NITROGEN) 49 MG/DL (6-23); CALCIUM, SERUM 8.1 MG/DL (8.5-10.4); CO2 (CARBON DIOXIDE) 22 MMOL/L (24-34); CREATININE 3.04 MG/DL (0.55-1.02); GFR AFRICAN AMERICAN 17 ML/MIN (>=60); GFR NON AFRICAN AMERICAN 15 ML/MIN (>=60); GLOBULIN 4.1 G/DL (2.5-4.1); GLUCOSE, SERUM 149 MG/DL (60-99); SGPT(ALT) < 6 U/L (5-65)
[2016-07-05 03:23] LABS: TROPONIN I 5.07 NG/ML (<0.05)
[2016-07-05 10:11] LABS: GLYCOHEMOGLOBIN (HbA1c) 6.1 % (4.7-6.1)
[2016-07-05 14:44] LABS: BUN (BLOOD UREA NITROGEN) 48 MG/DL (6-23); CALCIUM, SERUM 8.5 MG/DL (8.5-10.4); CHLORIDE, SERUM 103 MMOL/L (96-112); CO2 (CARBON DIOXIDE) 24 MMOL/L (24-34); CREATININE 3.05 MG/DL (0.55-1.02); GFR AFRICAN AMERICAN 17 ML/MIN (>=60); GFR NON AFRICAN AMERICAN 15 ML/MIN (>=60); GLUCOSE, SERUM 137 MG/DL (60-99); POTASSIUM, SERUM 4.1 MMOL/L (3.5-5.3); SODIUM, SERUM 141 MMOL/L (135-148); TROPONIN I 5.21 NG/ML (<0.05)
[2016-07-05] MEDS ORDERED: PACERONE400 MG PO (18:21)
[2016-07-05] MEDS ORDERED: ASAB PO (18:21)
[2016-07-05] MEDS ORDERED: CEFAZ1 IV (18:22)
[2016-07-05] MEDS ORDERED: L40 PO (18:26)
[2016-07-05] MEDS ORDERED: NOVOLOG SC (18:26)
[2016-07-05] MEDS ORDERED: DUONEB INH (18:27)
[2016-07-05] MEDS ORDERED: LOP100 PO (18:27)
[2016-07-05] MEDS ORDERED: NITROBID2 % TOP (18:28)
[2016-07-05] MEDS ORDERED: MIRALAX POWDER1 PKT PO (18:28)
[2016-07-05] MEDS ORDERED: PROTONIX PO (18:28)
[2016-07-05] MEDS ORDERED: MYTAB GAS80 MG PO (18:28)
[2016-07-05] MEDS ORDERED: PULRESP.5 PO (18:29)
[2016-07-05 22:14] LABS: BASOPHILS 0.3 %; BASOPHILS ABSOLUTE 0.03 10/3/uL (0.0-0.16); EOSINOPHILS 0 %; HEMATOCRIT 34.4 % (36.0-48.0); HEMOGLOBIN 11.3 g/dL (12.0-16.0); IMMATURE GRANULOCYTES 0.9 %; IMMATURE GRANULOCYTES ABSOLUTE 0.09 10/3/uL (0.0-0.11); LYMPHOCYTES 9.4 %; LYMPHOCYTES ABSOLUTE 0.99 10/3/uL (0.67-4.30); MEAN CORPUS HGB CONC 32.8 g/dL (32.0-36.0); MEAN CORPUSCULAR HEMOGLOB 29.4 pg (26.0-34.0); MEAN PLATELET VOLUME 10.4 fL (9.2-13.0); MONOCYTES 14.2 %; NEUTROPHILS 75.2 %; NEUTROPHILS ABSOLUTE 7.95 10/3/uL (2.02-8.40); PLATELET COUNT 430 10/3/uL (150-400); RBC DISTRIBUTION WIDTH 14.9 % (12.0-16.0); RED CELL COUNT 3.85 10/6/uL (4.0-5.6); WHITE BLOOD CELLS 10.6 10/3/uL (4.5-10.5)
[2016-07-05 22:32] LABS: A/G RATIO 0.5 (0.7-1.9); ALKALINE PHOSPHATASE 75 U/L (45-117); BUN (BLOOD UREA NITROGEN) 51 MG/DL (6-23); CALCIUM, SERUM 8.4 MG/DL (8.5-10.4); CHLORIDE, SERUM 104 MMOL/L (96-112); CO2 (CARBON DIOXIDE) 25 MMOL/L (24-34); CPK (IF ELEVATED MB BANDS) 102 U/L (0-200); CREATININE 2.87 MG/DL (0.55-1.02); GFR AFRICAN AMERICAN 18 ML/MIN (>=60); GFR NON AFRICAN AMERICAN 16 ML/MIN (>=60); GLOBULIN 4.4 G/DL (2.5-4.1); GLUCOSE, SERUM 147 MG/DL (60-99); PHOSPHORUS, SERUM 3.7 MG/DL (2.5-4.5); POTASSIUM, SERUM 3.8 MMOL/L (3.5-5.3); SGOT(AST) 17 U/L (5-40); SGPT(ALT) < 6 U/L (5-65); SODIUM, SERUM 142 MMOL/L (135-148); TOTAL BILIRUBIN 0.3 MG/DL (0-1.2); TOTAL PROTEIN 6.4 G/DL (6.0-8.5); TROPONIN I 4.46 NG/ML (<0.05)
[2016-07-05 22:33] LABS: MANUAL DIFF NO %; MEAN CORPUSCULAR VOLUME 89.4 fL (80-100)
[2016-07-05 22:58] LABS: INTERNATIONAL NORMAL RATI 5.7 UNITS (-); PROTIME (NOT ORD) 51.3 SEC (12.0-14.5)
[2016-07-06 01:09] LABS: BE (BASE EXCESS) -2.9 MEQ/L (0 +/- 2.5); CARBOXYHEMOGLOBIN 0.3 % (0-3); HCO3 (ACTUAL BICARBONATE) 22.1 MEQ/L (23-27); HEMOBLOGIN CONTENT 11.3 G/DL (12-16); INSTRUMENT SERIAL # 35151; METHEMOGLOBIN 0.4 % (0-3); O2 CONTENT 15.5 VOL% (18-24); PCO2 (CO2 TENSION) 39 MMHG (35-45); PO2 (O2 TENSION) 99 MMHG (79-93); pH 7.37 (7.37-7.43)
[2016-07-06 01:10] LABS: ALLENS TEST Pos; BIPAP 16/6 cm.H2O; SAMPLE Arterial
[2016-07-06 03:48] LABS: BASOPHILS 0.2 %; BASOPHILS ABSOLUTE 0.02 10/3/uL (0.0-0.16); EOSINOPHILS 0.1 %; EOSINOPHILS ABSOLUTE 0.01 10/3/uL (0.0-0.53); HEMATOCRIT 31.7 % (36.0-48.0); HEMOGLOBIN 10.4 g/dL (12.0-16.0); IMMATURE GRANULOCYTES 0.9 %; IMMATURE GRANULOCYTES ABSOLUTE 0.09 10/3/uL (0.0-0.11); LYMPHOCYTES 8.8 %; LYMPHOCYTES ABSOLUTE 0.85 10/3/uL (0.67-4.30); MANUAL DIFF NO %; MEAN CORPUS HGB CONC 32.8 g/dL (32.0-36.0); MEAN CORPUSCULAR HEMOGLOB 29.8 pg (26.0-34.0); MEAN CORPUSCULAR VOLUME 90.8 fL (80-100); MEAN PLATELET VOLUME 9.8 fL (9.2-13.0); MONOCYTES 13.8 %; MONOCYTES ABSOLUTE 1.33 10/3/uL (0.21-1.20); NEUTROPHILS 76.2 %; NEUTROPHILS ABSOLUTE 7.31 10/3/uL (2.02-8.40); PLATELET COUNT 392 10/3/uL (150-400); RED CELL COUNT 3.49 10/6/uL (4.0-5.6); WHITE BLOOD CELLS 9.6 10/3/uL (4.5-10.5)
[2016-07-06 03:57] LABS: PARTIAL THROMBO TIME 57.9 SEC (22.5-37.2)
[2016-07-06 03:58] LABS: PROTIME (NOT ORD) 61.7 SEC (12.0-14.5)
[2016-07-06 03:59] LABS: INTERNATIONAL NORMAL RATI 7.3 UNITS (-)
[2016-07-06 04:05] LABS: BUN (BLOOD UREA NITROGEN) 54 MG/DL (6-23); CALCIUM, SERUM 8.1 MG/DL (8.5-10.4); CHLORIDE, SERUM 103 MMOL/L (96-112); CK-MB 5.2 NG/ML; CO2 (CARBON DIOXIDE) 25 MMOL/L (24-34); CPK 84 U/L (0-200); CREATININE 2.95 MG/DL (0.55-1.02); GFR AFRICAN AMERICAN 18 ML/MIN (>=60); GFR NON AFRICAN AMERICAN 15 ML/MIN (>=60); GLUCOSE, SERUM 170 MG/DL (60-99); POTASSIUM, SERUM 3.8 MMOL/L (3.5-5.3); SODIUM, SERUM 140 MMOL/L (135-148)
[2016-07-06 04:19] LABS: CKMB INDEX (NOT ORD) 6.2; TROPONIN I 3.97 NG/ML (<0.05)
[2016-07-06 05:05] LABS: PROCALCITONIN 1.22 ng/mL (<0.5)
[2016-07-06 16:55] LABS: ASCORBIC ACID (UR NOT ORDER) NEG (NEG); BILIRUBIN, URINE NEGATIVE (NEG); KETONE, URINE TRACE MG/DL (NEG); LEUKOCYTE ESTERASE(NOT OR LARGE (NEG)
[2016-07-06 16:59] LABS: WBC (NOT ORDERED) (RFLEX) 8 (0-5)
[2016-07-07 03:29] LABS: BASOPHILS 0.3 %; BASOPHILS ABSOLUTE 0.03 10/3/uL (0.0-0.16); EOSINOPHILS 0.2 %; EOSINOPHILS ABSOLUTE 0.02 10/3/uL (0.0-0.53); HEMATOCRIT 32.6 % (36.0-48.0); HEMOGLOBIN 10.6 g/dL (12.0-16.0); IMMATURE GRANULOCYTES 0.9 %; LYMPHOCYTES 9.3 %; LYMPHOCYTES ABSOLUTE 1.07 10/3/uL (0.67-4.30); MEAN CORPUS HGB CONC 32.5 g/dL (32.0-36.0); MEAN CORPUSCULAR HEMOGLOB 29.6 pg (26.0-34.0); MEAN CORPUSCULAR VOLUME 91.1 fL (80-100); MEAN PLATELET VOLUME 9.6 fL (9.2-13.0); MONOCYTES 14.1 %; MONOCYTES ABSOLUTE 1.63 10/3/uL (0.21-1.20); NEUTROPHILS 75.2 %; NEUTROPHILS ABSOLUTE 8.71 10/3/uL (2.02-8.40); PLATELET COUNT 409 10/3/uL (150-400); RED CELL COUNT 3.58 10/6/uL (4.0-5.6); WHITE BLOOD CELLS 11.6 10/3/uL (4.5-10.5)
[2016-07-07 03:37] LABS: MANUAL DIFF NO %
[2016-07-07 03:43] LABS: BUN (BLOOD UREA NITROGEN) 54 MG/DL (6-23); CALCIUM, SERUM 8.3 MG/DL (8.5-10.4); CHLORIDE, SERUM 105 MMOL/L (96-112); CO2 (CARBON DIOXIDE) 26 MMOL/L (24-34); CREATININE 2.83 MG/DL (0.55-1.02); GFR AFRICAN AMERICAN 19 ML/MIN (>=60); GFR NON AFRICAN AMERICAN 16 ML/MIN (>=60); INTERNATIONAL NORMAL RATI 1.5 UNITS (-); POTASSIUM, SERUM 3.5 MMOL/L (3.5-5.3); SODIUM, SERUM 143 MMOL/L (135-148)
[2016-07-07 03:47] LABS: PROTIME (NOT ORD) 18.2 SEC (12.0-14.5)
[2016-07-07 03:52] LABS: GLUCOSE, SERUM 116 MG/DL (60-99)
[2016-07-08 03:33] LABS: BASOPHILS 0.2 %; BASOPHILS ABSOLUTE 0.02 10/3/uL (0.0-0.16); EOSINOPHILS 0.2 %; EOSINOPHILS ABSOLUTE 0.02 10/3/uL (0.0-0.53); HEMATOCRIT 32.5 % (36.0-48.0); HEMOGLOBIN 10.6 g/dL (12.0-16.0); IMMATURE GRANULOCYTES 0.9 %; LYMPHOCYTES 10.2 %; LYMPHOCYTES ABSOLUTE 1.17 10/3/uL (0.67-4.30); MEAN CORPUS HGB CONC 32.6 g/dL (32.0-36.0); MEAN CORPUSCULAR HEMOGLOB 29.7 pg (26.0-34.0); MEAN PLATELET VOLUME 9.6 fL (9.2-13.0); MONOCYTES 11.6 %; MONOCYTES ABSOLUTE 1.33 10/3/uL (0.21-1.20); NEUTROPHILS 76.9 %; NEUTROPHILS ABSOLUTE 8.87 10/3/uL (2.02-8.40); PLATELET COUNT 441 10/3/uL (150-400); RED CELL COUNT 3.57 10/6/uL (4.0-5.6); WHITE BLOOD CELLS 11.5 10/3/uL (4.5-10.5)
[2016-07-08 03:35] LABS: MANUAL DIFF NO %
[2016-07-08 03:49] LABS: A/G RATIO 0.5 (0.7-1.9); ALBUMIN 1.9 G/DL (3.5-5.0); ALKALINE PHOSPHATASE 66 U/L (45-117); BUN (BLOOD UREA NITROGEN) 55 MG/DL (6-23); CALCIUM, SERUM 8.3 MG/DL (8.5-10.4); CHLORIDE, SERUM 101 MMOL/L (96-112); CO2 (CARBON DIOXIDE) 29 MMOL/L (24-34); CREATININE 2.62 MG/DL (0.55-1.02); GFR AFRICAN AMERICAN 20 ML/MIN (>=60); GFR NON AFRICAN AMERICAN 18 ML/MIN (>=60); GLOBULIN 4.2 G/DL (2.5-4.1); PHOSPHORUS, SERUM 3.5 MG/DL (2.5-4.5); POTASSIUM, SERUM 3.3 MMOL/L (3.5-5.3); SGOT(AST) 17 U/L (5-40); SODIUM, SERUM 139 MMOL/L (135-148); TOTAL BILIRUBIN 0.4 MG/DL (0-1.2); TOTAL PROTEIN 6.1 G/DL (6.0-8.5)
[2016-07-08 03:55] LABS: GLUCOSE, SERUM 151 MG/DL (60-99); SGPT(ALT) 6 U/L (5-65)
[2016-07-08 06:21] LABS: PROCALCITONIN 0.52 ng/mL (<0.5)
[2016-07-08 17:55] LABS: CALCIUM, SERUM 8.2 MG/DL (8.5-10.4); CHLORIDE, SERUM 98 MMOL/L (96-112); CO2 (CARBON DIOXIDE) 28 MMOL/L (24-34); CPK 95 U/L (0-200); CREATININE 2.34 MG/DL (0.55-1.02); GFR AFRICAN AMERICAN 23 ML/MIN (>=60); GFR NON AFRICAN AMERICAN 20 ML/MIN (>=60); GLUCOSE, SERUM 167 MG/DL (60-99); PHOSPHORUS, SERUM 3.1 MG/DL (2.5-4.5); POTASSIUM, SERUM 3.3 MMOL/L (3.5-5.3); SODIUM, SERUM 137 MMOL/L (135-148)
[2016-07-08 17:56] LABS: BUN (BLOOD UREA NITROGEN) 49 MG/DL (6-23); CK-MB 3.6 NG/ML; TROPONIN I 2.85 NG/ML (<0.05)
[2016-07-08 18:03] LABS: ALBUMIN 2.5 G/DL (3.5-5.0); BUN (BLOOD UREA NITROGEN) 49 MG/DL (6-23); CHLORIDE, SERUM 98 MMOL/L (96-112); CO2 (CARBON DIOXIDE) 28 MMOL/L (24-34); CREATININE 2.35 MG/DL (0.55-1.02); GFR AFRICAN AMERICAN 23 ML/MIN (>=60); GFR NON AFRICAN AMERICAN 20 ML/MIN (>=60); GLUCOSE, SERUM 163 MG/DL (60-99); PHOSPHORUS, SERUM 3.3 MG/DL (2.5-4.5); POTASSIUM, SERUM 3.6 MMOL/L (3.5-5.3); SODIUM, SERUM 139 MMOL/L (135-148)
[2016-07-09 00:17] LABS: BUN (BLOOD UREA NITROGEN) 51 MG/DL (6-23); CALCIUM, SERUM 7.9 MG/DL (8.5-10.4); CHLORIDE, SERUM 99 MMOL/L (96-112); CO2 (CARBON DIOXIDE) 27 MMOL/L (24-34); CREATININE 2.19 MG/DL (0.55-1.02); GFR AFRICAN AMERICAN 25 ML/MIN (>=60); GFR NON AFRICAN AMERICAN 22 ML/MIN (>=60); GLUCOSE, SERUM 151 MG/DL (60-99); PHOSPHORUS, SERUM 2.8 MG/DL (2.5-4.5); POTASSIUM, SERUM 3.9 MMOL/L (3.5-5.3); SODIUM, SERUM 138 MMOL/L (135-148)
[2016-07-09 01:41] LABS: BE (BASE EXCESS) -4.6 MEQ/L (0 +/- 2.5); BIPAP 16/6 cm.H2O; CARBOXYHEMOGLOBIN 0.1 % (0-3); HCO3 (ACTUAL BICARBONATE) 24.8 MEQ/L (23-27); HEMOBLOGIN CONTENT 12.4 G/DL (12-16); INSTRUMENT SERIAL # 35151; METHEMOGLOBIN 0.6 % (0-3); O2 CONTENT 16.6 VOL% (18-24); OPERATOR ID 23712; PCO2 (CO2 TENSION) 68 MMHG (35-45); PO2 (O2 TENSION) 97 MMHG (79-93); SAMPLE Arterial; pH 7.18 (7.37-7.43)
[2016-07-09 02:42] LABS: ASCORBIC ACID (UR NOT ORDER) NEG (NEG); BILIRUBIN, URINE NEGATIVE (NEG); KETONE, URINE NEGATIVE (NEG); LEUKOCYTE ESTERASE(NOT OR SMALL (NEG); WBC (NOT ORDERED) (RFLEX) 1 (0-5)
[2016-07-09 04:17] LABS: BE (BASE EXCESS) -1.7 MEQ/L (0 +/- 2.5); CARBOXYHEMOGLOBIN 0.3 % (0-3); INSTRUMENT SERIAL # 35151; METHEMOGLOBIN 0.7 % (0-3); PCO2 (CO2 TENSION) 45 MMHG (35-45); PO2 (O2 TENSION) 264 MMHG (79-93); pH 7.35 (7.37-7.43)
[2016-07-09 04:18] LABS: ALLENS TEST Pos; HEMOBLOGIN CONTENT 12.2 G/DL (12-16); MODE CMV; O2 CONTENT 17.5 VOL% (18-24); OPERATOR ID 17370; SAMPLE Arterial; TIDAL VOLUME 450 ML
[2016-07-09 04:47] LABS: BASOPHILS 0.2 %; BASOPHILS ABSOLUTE 0.03 10/3/uL (0.0-0.16); EOSINOPHILS 0.1 %; EOSINOPHILS ABSOLUTE 0.01 10/3/uL (0.0-0.53); HEMATOCRIT 33.8 % (36.0-48.0); HEMOGLOBIN 11.2 g/dL (12.0-16.0); IMMATURE GRANULOCYTES 1.4 %; IMMATURE GRANULOCYTES ABSOLUTE 0.25 10/3/uL (0.0-0.11); LYMPHOCYTES ABSOLUTE 0.54 10/3/uL (0.67-4.30); MEAN CORPUS HGB CONC 33.1 g/dL (32.0-36.0); MEAN CORPUSCULAR VOLUME 90.6 fL (80-100); MONOCYTES 9.4 %; MONOCYTES ABSOLUTE 1.66 10/3/uL (0.21-1.20); NEUTROPHILS 85.9 %; NEUTROPHILS ABSOLUTE 15.26 10/3/uL (2.02-8.40); PLATELET COUNT 514 10/3/uL (150-400); RBC DISTRIBUTION WIDTH 15.3 % (12.0-16.0); RED CELL COUNT 3.73 10/6/uL (4.0-5.6)
[2016-07-09 04:55] LABS: ALBUMIN 2.6 G/DL (3.5-5.0); BUN (BLOOD UREA NITROGEN) 52 MG/DL (6-23); CALCIUM, SERUM 8.3 MG/DL (8.5-10.4); CHLORIDE, SERUM 98 MMOL/L (96-112); CO2 (CARBON DIOXIDE) 26 MMOL/L (24-34); CREATININE 2.39 MG/DL (0.55-1.02); GFR AFRICAN AMERICAN 23 ML/MIN (>=60); GFR NON AFRICAN AMERICAN 20 ML/MIN (>=60); POTASSIUM, SERUM 4.3 MMOL/L (3.5-5.3); SODIUM, SERUM 136 MMOL/L (135-148)
[2016-07-09 04:56] LABS: GLUCOSE, SERUM 188 MG/DL (60-99); PHOSPHORUS, SERUM 3.7 MG/DL (2.5-4.5)
[2016-07-09 04:58] LABS: MANUAL DIFF NO %; WHITE BLOOD CELLS 17.8 10/3/uL (4.5-10.5)
[2016-07-09 10:03] LABS: INTERNATIONAL NORMAL RATI 1.4 UNITS (-); PROTIME (NOT ORD) 17.4 SEC (12.0-14.5)
[2016-07-09 14:20] LABS: PARTIAL THROMBO TIME 31.1 SEC (22.5-37.2)
[2016-07-09 17:09] LABS: BUN (BLOOD UREA NITROGEN) 55 MG/DL (6-23); CALCIUM, SERUM 7.8 MG/DL (8.5-10.4); CHLORIDE, SERUM 98 MMOL/L (96-112); CO2 (CARBON DIOXIDE) 27 MMOL/L (24-34); CREATININE 2.38 MG/DL (0.55-1.02); GFR AFRICAN AMERICAN 23 ML/MIN (>=60); GFR NON AFRICAN AMERICAN 20 ML/MIN (>=60); GLUCOSE, SERUM 125 MG/DL (60-99); PHOSPHORUS, SERUM 3.1 MG/DL (2.5-4.5); POTASSIUM, SERUM 3.7 MMOL/L (3.5-5.3); SODIUM, SERUM 137 MMOL/L (135-148)
[2016-07-09 23:55] LABS: BUN (BLOOD UREA NITROGEN) 52 MG/DL (6-23); CALCIUM, SERUM 7.7 MG/DL (8.5-10.4); CHLORIDE, SERUM 98 MMOL/L (96-112); CO2 (CARBON DIOXIDE) 25 MMOL/L (24-34); CREATININE 2.42 MG/DL (0.55-1.02); GFR AFRICAN AMERICAN 22 ML/MIN (>=60); GFR NON AFRICAN AMERICAN 19 ML/MIN (>=60); GLUCOSE, SERUM 125 MG/DL (60-99); PHOSPHORUS, SERUM 3.4 MG/DL (2.5-4.5); SODIUM, SERUM 135 MMOL/L (135-148)
[2016-07-10 04:08] LABS: BASOPHILS 0.2 %; BASOPHILS ABSOLUTE 0.02 10/3/uL (0.0-0.16); EOSINOPHILS 0.2 %; EOSINOPHILS ABSOLUTE 0.02 10/3/uL (0.0-0.53); HEMOGLOBIN 9.5 g/dL (12.0-16.0); IMMATURE GRANULOCYTES 0.8 %; LYMPHOCYTES 8.4 %; LYMPHOCYTES ABSOLUTE 0.99 10/3/uL (0.67-4.30); MEAN CORPUS HGB CONC 32.6 g/dL (32.0-36.0); MEAN CORPUSCULAR HEMOGLOB 29.3 pg (26.0-34.0); MEAN CORPUSCULAR VOLUME 89.8 fL (80-100); MEAN PLATELET VOLUME 9.6 fL (9.2-13.0); MONOCYTES 10.6 %; MONOCYTES ABSOLUTE 1.25 10/3/uL (0.21-1.20); NEUTROPHILS 79.8 %; NEUTROPHILS ABSOLUTE 9.43 10/3/uL (2.02-8.40); PLATELET COUNT 386 10/3/uL (150-400); RBC DISTRIBUTION WIDTH 15.4 % (12.0-16.0); RED CELL COUNT 3.24 10/6/uL (4.0-5.6); WHITE BLOOD CELLS 11.8 10/3/uL (4.5-10.5)
[2016-07-10 04:09] LABS: ALLENS TEST Pos; BE (BASE EXCESS) -1.8 MEQ/L (0 +/- 2.5); CARBOXYHEMOGLOBIN 0.3 % (0-3); HCO3 (ACTUAL BICARBONATE) 22.9 MEQ/L (23-27); HEMOBLOGIN CONTENT 10.7 G/DL (12-16); INSTRUMENT SERIAL # 35151; METHEMOGLOBIN 0.6 % (0-3); O2 CONTENT 14.6 VOL% (18-24); OPERATOR ID 23712; PCO2 (CO2 TENSION) 39 MMHG (35-45); PO2 (O2 TENSION) 97 MMHG (79-93); SAMPLE Arterial; TIDAL VOLUME 450 ML; pH 7.39 (7.37-7.43)
[2016-07-10 04:25] LABS: A/G RATIO 0.6 (0.7-1.9); ALBUMIN 2.2 G/DL (3.5-5.0); ALKALINE PHOSPHATASE 57 U/L (45-117); BUN (BLOOD UREA NITROGEN) 50 MG/DL (6-23); CHLORIDE, SERUM 98 MMOL/L (96-112); CO2 (CARBON DIOXIDE) 26 MMOL/L (24-34); CREATININE 2.59 MG/DL (0.55-1.02); GFR AFRICAN AMERICAN 21 ML/MIN (>=60); GFR NON AFRICAN AMERICAN 18 ML/MIN (>=60); GLOBULIN 3.6 G/DL (2.5-4.1); GLUCOSE, SERUM 134 MG/DL (60-99); PHOSPHORUS, SERUM 3.5 MG/DL (2.5-4.5); SGOT(AST) 13 U/L (5-40); SODIUM, SERUM 135 MMOL/L (135-148); TOTAL BILIRUBIN 0.8 MG/DL (0-1.2); TOTAL PROTEIN 5.8 G/DL (6.0-8.5)
[2016-07-10 04:28] LABS: SGPT(ALT) < 6 U/L (5-65)
[2016-07-10 04:35] LABS: HEMATOCRIT 29.1 % (36.0-48.0); MANUAL DIFF NO %
[2016-07-10 04:48] LABS: PLATELET ESTIMATE ADQ (ADEQUATE)
[2016-07-10 04:49] LABS: BURR CELLS 1+ (3-10/OIF) (0-2/OIF)
[2016-07-10 04:50] LABS: HELMET CELLS OCC (0-2/OIF)
[2016-07-10 20:13] LABS: BUN (BLOOD UREA NITROGEN) 58 MG/DL (6-23); CALCIUM, SERUM 7.8 MG/DL (8.5-10.4); CHLORIDE, SERUM 96 MMOL/L (96-112); CO2 (CARBON DIOXIDE) 26 MMOL/L (24-34); GFR AFRICAN AMERICAN 19 ML/MIN (>=60); GFR NON AFRICAN AMERICAN 16 ML/MIN (>=60); GLUCOSE, SERUM 137 MG/DL (60-99); PHOSPHORUS, SERUM 3.9 MG/DL (2.5-4.5); POTASSIUM, SERUM 3.9 MMOL/L (3.5-5.3); SODIUM, SERUM 135 MMOL/L (135-148)
[2016-07-11 03:35] LABS: BASOPHILS 0.2 %; BASOPHILS ABSOLUTE 0.03 10/3/uL (0.0-0.16); EOSINOPHILS 0.2 %; EOSINOPHILS ABSOLUTE 0.03 10/3/uL (0.0-0.53); HEMATOCRIT 28.6 % (36.0-48.0); HEMOGLOBIN 9.6 g/dL (12.0-16.0); IMMATURE GRANULOCYTES ABSOLUTE 0.16 10/3/uL (0.0-0.11); LYMPHOCYTES 5.7 %; MEAN CORPUS HGB CONC 33.6 g/dL (32.0-36.0); MEAN CORPUSCULAR HEMOGLOB 29.9 pg (26.0-34.0); MEAN CORPUSCULAR VOLUME 89.1 fL (80-100); MEAN PLATELET VOLUME 9.5 fL (9.2-13.0); MONOCYTES 9.3 %; MONOCYTES ABSOLUTE 1.46 10/3/uL (0.21-1.20); NEUTROPHILS 83.6 %; NEUTROPHILS ABSOLUTE 13.09 10/3/uL (2.02-8.40); PLATELET COUNT 381 10/3/uL (150-400); RBC DISTRIBUTION WIDTH 15.2 % (12.0-16.0); RED CELL COUNT 3.21 10/6/uL (4.0-5.6); WHITE BLOOD CELLS 15.7 10/3/uL (4.5-10.5)
[2016-07-11 03:41] LABS: MANUAL DIFF NO %
[2016-07-11 03:47] LABS: INTERNATIONAL NORMAL RATI 1.5 UNITS (-); PROTIME (NOT ORD) 17.7 SEC (12.0-14.5)
[2016-07-11 04:00] LABS: A/G RATIO 0.5 (0.7-1.9); ALKALINE PHOSPHATASE 61 U/L (45-117); BUN (BLOOD UREA NITROGEN) 55 MG/DL (6-23); CALCIUM, SERUM 7.9 MG/DL (8.5-10.4); CHLORIDE, SERUM 96 MMOL/L (96-112); CHOL/HDL RATIO(NOT ORDER) 1.8 (0-5); CHOLESTEROL 74 MG/DL (< 200); CO2 (CARBON DIOXIDE) 25 MMOL/L (24-34); CREATININE 2.92 MG/DL (0.55-1.02); GFR AFRICAN AMERICAN 18 ML/MIN (>=60); GFR NON AFRICAN AMERICAN 15 ML/MIN (>=60); GLOBULIN 3.9 G/DL (2.5-4.1); GLUCOSE, SERUM 145 MG/DL (60-99); HDL CHOLESTEROL 41 MG/DL (> 49); LDL CHOLESTEROL 17 MG/DL (< 130); NON-HDL CHOLESTEROL 33 MG/DL (< 160); PHOSPHORUS, SERUM 4.1 MG/DL (2.5-4.5); POTASSIUM, SERUM 3.8 MMOL/L (3.5-5.3); SGOT(AST) 12 U/L (5-40); SODIUM, SERUM 134 MMOL/L (135-148); TOTAL BILIRUBIN 0.8 MG/DL (0-1.2); TOTAL PROTEIN 5.9 G/DL (6.0-8.5); TRIGLYCERIDE 84 MG/DL (< 150)
[2016-07-11 04:07] LABS: SGPT(ALT) 6 U/L (5-65)
[2016-07-11 05:04] LABS: CK-MB 1.8 NG/ML; CPK 50 U/L (0-200); TROPONIN I 1.55 NG/ML (<0.05)
[2016-07-12 03:57] LABS: BE (BASE EXCESS) -0.7 MEQ/L (0 +/- 2.5); CARBOXYHEMOGLOBIN 0.3 % (0-3); HCO3 (ACTUAL BICARBONATE) 24.2 MEQ/L (23-27); HEMOBLOGIN CONTENT 9.7 G/DL (12-16); INSTRUMENT SERIAL # 35151; METHEMOGLOBIN 0.5 % (0-3); MODE CMV; O2 CONTENT 13.1 VOL% (18-24); PCO2 (CO2 TENSION) 41 MMHG (35-45); PO2 (O2 TENSION) 86 MMHG (79-93); SAMPLE Arterial; TIDAL VOLUME 400 ML; pH 7.39 (7.37-7.43)
[2016-07-12 04:59] LABS: A/G RATIO 0.4 (0.7-1.9); ALBUMIN 1.7 G/DL (3.5-5.0); ALKALINE PHOSPHATASE 57 U/L (45-117); CALCIUM, SERUM 7.9 MG/DL (8.5-10.4); CHLORIDE, SERUM 95 MMOL/L (96-112); CO2 (CARBON DIOXIDE) 25 MMOL/L (24-34); CREATININE 3.32 MG/DL (0.55-1.02); GFR AFRICAN AMERICAN 15 ML/MIN (>=60); GFR NON AFRICAN AMERICAN 13 ML/MIN (>=60); GLOBULIN 3.9 G/DL (2.5-4.1); POTASSIUM, SERUM 3.6 MMOL/L (3.5-5.3); SGOT(AST) 15 U/L (5-40); SODIUM, SERUM 134 MMOL/L (135-148); TOTAL PROTEIN 5.6 G/DL (6.0-8.5)
[2016-07-12 05:00] LABS: BUN (BLOOD UREA NITROGEN) 60 MG/DL (6-23); GLUCOSE, SERUM 114 MG/DL (60-99); PHOSPHORUS, SERUM 5.4 MG/DL (2.5-4.5); SGPT(ALT) 6 U/L (5-65); TOTAL BILIRUBIN 1.6 MG/DL (0-1.2)
[2016-07-12 05:04] LABS: BASOPHILS 0.2 %; BASOPHILS ABSOLUTE 0.03 10/3/uL (0.0-0.16); EOSINOPHILS 0.1 %; EOSINOPHILS ABSOLUTE 0.02 10/3/uL (0.0-0.53); HEMOGLOBIN 8.5 g/dL (12.0-16.0); IMMATURE GRANULOCYTES 0.8 %; IMMATURE GRANULOCYTES ABSOLUTE 0.13 10/3/uL (0.0-0.11); LYMPHOCYTES 4.7 %; LYMPHOCYTES ABSOLUTE 0.73 10/3/uL (0.67-4.30); MEAN CORPUS HGB CONC 33.7 g/dL (32.0-36.0); MEAN CORPUSCULAR HEMOGLOB 29.4 pg (26.0-34.0); MEAN CORPUSCULAR VOLUME 87.2 fL (80-100); MEAN PLATELET VOLUME 9.6 fL (9.2-13.0); MONOCYTES 9.5 %; MONOCYTES ABSOLUTE 1.46 10/3/uL (0.21-1.20); NEUTROPHILS 84.7 %; PLATELET COUNT 375 10/3/uL (150-400); RBC DISTRIBUTION WIDTH 15.4 % (12.0-16.0); RED CELL COUNT 2.89 10/6/uL (4.0-5.6); WHITE BLOOD CELLS 15.4 10/3/uL (4.5-10.5)
[2016-07-12 05:07] LABS: HEMATOCRIT 25.2 % (36.0-48.0); MANUAL DIFF NO %
[2016-07-12 05:23] LABS: INTERNATIONAL NORMAL RATI 1.8 UNITS (-); PROTIME (NOT ORD) 20.5 SEC (12.0-14.5)
[2016-07-13 04:45] LABS: ALBUMIN 2.3 G/DL (3.5-5.0); BUN (BLOOD UREA NITROGEN) 66 MG/DL (6-23); CHLORIDE, SERUM 95 MMOL/L (96-112); CO2 (CARBON DIOXIDE) 26 MMOL/L (24-34); CREATININE 3.76 MG/DL (0.55-1.02); GFR AFRICAN AMERICAN 13 ML/MIN (>=60); GFR NON AFRICAN AMERICAN 11 ML/MIN (>=60); GLUCOSE, SERUM 116 MG/DL (60-99); PHOSPHORUS, SERUM 4.9 MG/DL (2.5-4.5); POTASSIUM, SERUM 3.6 MMOL/L (3.5-5.3); SODIUM, SERUM 135 MMOL/L (135-148)
[2016-07-13 16:09] LABS: A/G RATIO 0.7 (0.7-1.9); ALBUMIN 2.6 G/DL (3.5-5.0); ALKALINE PHOSPHATASE 57 U/L (45-117); CALCIUM, SERUM 8.1 MG/DL (8.5-10.4); CHLORIDE, SERUM 95 MMOL/L (96-112); CO2 (CARBON DIOXIDE) 26 MMOL/L (24-34); GFR AFRICAN AMERICAN 12 ML/MIN (>=60); GFR NON AFRICAN AMERICAN 10 ML/MIN (>=60); GLOBULIN 3.5 G/DL (2.5-4.1); GLUCOSE, SERUM 106 MG/DL (60-99); PHOSPHORUS, SERUM 5.5 MG/DL (2.5-4.5); POTASSIUM, SERUM 3.4 MMOL/L (3.5-5.3); SGOT(AST) 12 U/L (5-40); SODIUM, SERUM 136 MMOL/L (135-148); TOTAL PROTEIN 6.1 G/DL (6.0-8.5)
[2016-07-13 16:13] LABS: BUN (BLOOD UREA NITROGEN) 74 MG/DL (6-23); SGPT(ALT) < 6 U/L (5-65); TOTAL BILIRUBIN 0.4 MG/DL (0-1.2)
[2016-07-13 16:15] LABS: BE (BASE EXCESS) -2.2 MEQ/L (0 +/- 2.5); CARBOXYHEMOGLOBIN 0.3 % (0-3); HCO3 (ACTUAL BICARBONATE) 23.3 MEQ/L (23-27); HEMOBLOGIN CONTENT 9.1 G/DL (12-16); INSTRUMENT SERIAL # 35151; METHEMOGLOBIN 0.5 % (0-3); MODE CMV; O2 CONTENT 11.9 VOL% (18-24); PCO2 (CO2 TENSION) 43 MMHG (35-45); PO2 (O2 TENSION) 74 MMHG (79-93); SAMPLE Arterial; TIDAL VOLUME 400 ML; pH 7.35 (7.37-7.43)
[2016-07-13 22:24] LABS: CALCIUM, SERUM 7.4 MG/DL (8.5-10.4); CHLORIDE, SERUM 98 MMOL/L (96-112); CO2 (CARBON DIOXIDE) 24 MMOL/L (24-34); GFR AFRICAN AMERICAN 19 ML/MIN (>=60); GFR NON AFRICAN AMERICAN 16 ML/MIN (>=60); GLUCOSE, SERUM 126 MG/DL (60-99); POTASSIUM, SERUM 3.5 MMOL/L (3.5-5.3); SODIUM, SERUM 137 MMOL/L (135-148)
[2016-07-13 22:25] LABS: BASOPHILS 0.1 %; BASOPHILS ABSOLUTE 0.02 10/3/uL (0.0-0.16); EOSINOPHILS 0.3 %; EOSINOPHILS ABSOLUTE 0.04 10/3/uL (0.0-0.53); HEMATOCRIT 25.2 % (36.0-48.0); HEMOGLOBIN 8.2 g/dL (12.0-16.0); IMMATURE GRANULOCYTES 0.5 %; IMMATURE GRANULOCYTES ABSOLUTE 0.07 10/3/uL (0.0-0.11); LYMPHOCYTES 7.5 %; MEAN CORPUS HGB CONC 32.5 g/dL (32.0-36.0); MEAN PLATELET VOLUME 9.3 fL (9.2-13.0); MONOCYTES 6.3 %; MONOCYTES ABSOLUTE 0.92 10/3/uL (0.21-1.20); NEUTROPHILS 85.3 %; NEUTROPHILS ABSOLUTE 12.55 10/3/uL (2.02-8.40); PLATELET COUNT 404 10/3/uL (150-400); RBC DISTRIBUTION WIDTH 15.8 % (12.0-16.0); RED CELL COUNT 2.83 10/6/uL (4.0-5.6); WHITE BLOOD CELLS 14.7 10/3/uL (4.5-10.5)
[2016-07-13 22:26] LABS: BUN (BLOOD UREA NITROGEN) 52 MG/DL (6-23); CREATININE 2.82 MG/DL (0.55-1.02)
[2016-07-13 22:37] LABS: MANUAL DIFF NO %
[2016-07-14 03:34] LABS: BASOPHILS 0.1 %; BASOPHILS ABSOLUTE 0.02 10/3/uL (0.0-0.16); EOSINOPHILS 0.6 %; EOSINOPHILS ABSOLUTE 0.08 10/3/uL (0.0-0.53); HEMATOCRIT 25.1 % (36.0-48.0); HEMOGLOBIN 8.2 g/dL (12.0-16.0); IMMATURE GRANULOCYTES 0.4 %; IMMATURE GRANULOCYTES ABSOLUTE 0.06 10/3/uL (0.0-0.11); LYMPHOCYTES 7.4 %; LYMPHOCYTES ABSOLUTE 1.04 10/3/uL (0.67-4.30); MEAN CORPUS HGB CONC 32.7 g/dL (32.0-36.0); MEAN CORPUSCULAR HEMOGLOB 28.9 pg (26.0-34.0); MEAN CORPUSCULAR VOLUME 88.4 fL (80-100); MEAN PLATELET VOLUME 9.4 fL (9.2-13.0); MONOCYTES ABSOLUTE 0.99 10/3/uL (0.21-1.20); NEUTROPHILS 84.5 %; PLATELET COUNT 406 10/3/uL (150-400); RBC DISTRIBUTION WIDTH 15.8 % (12.0-16.0); RED CELL COUNT 2.84 10/6/uL (4.0-5.6); WHITE BLOOD CELLS 14.1 10/3/uL (4.5-10.5)
[2016-07-14 03:36] LABS: MANUAL DIFF NO %
[2016-07-14 03:47] LABS: CALCIUM, SERUM 7.4 MG/DL (8.5-10.4); CHLORIDE, SERUM 101 MMOL/L (96-112); CO2 (CARBON DIOXIDE) 23 MMOL/L (24-34); GLUCOSE, SERUM 120 MG/DL (60-99); POTASSIUM, SERUM 3.5 MMOL/L (3.5-5.3); SODIUM, SERUM 138 MMOL/L (135-148)
[2016-07-14 03:48] LABS: BUN (BLOOD UREA NITROGEN) 37 MG/DL (6-23); CREATININE 2.23 MG/DL (0.55-1.02); GFR AFRICAN AMERICAN 25 ML/MIN (>=60); GFR NON AFRICAN AMERICAN 21 ML/MIN (>=60); PHOSPHORUS, SERUM 2.6 MG/DL (2.5-4.5)
[2016-07-14 04:49] LABS: ALLENS TEST Pos; BE (BASE EXCESS) -2.7 MEQ/L (0 +/- 2.5); CARBOXYHEMOGLOBIN 1.2 % (0-3); HEMOBLOGIN CONTENT 8.5 G/DL (12-16); INSTRUMENT SERIAL # 8087; METHEMOGLOBIN 0.3 % (0-3); MODE CMV; O2 CONTENT 11.8 VOL% (18-24); OPERATOR ID 334499; PCO2 (CO2 TENSION) 37 MMHG (35-45); PO2 (O2 TENSION) 112 MMHG (79-93); SAMPLE Arterial; TIDAL VOLUME 400 ML; pH 7.39 (7.37-7.43)
[2016-07-14 10:23] LABS: BASOPHILS 0.2 %; BASOPHILS ABSOLUTE 0.03 10/3/uL (0.0-0.16); EOSINOPHILS 0.7 %; HEMATOCRIT 25.6 % (36.0-48.0); HEMOGLOBIN 8.5 g/dL (12.0-16.0); IMMATURE GRANULOCYTES 0.4 %; IMMATURE GRANULOCYTES ABSOLUTE 0.06 10/3/uL (0.0-0.11); LYMPHOCYTES 5.9 %; LYMPHOCYTES ABSOLUTE 0.84 10/3/uL (0.67-4.30); MEAN CORPUS HGB CONC 33.2 g/dL (32.0-36.0); MEAN CORPUSCULAR VOLUME 90.5 fL (80-100); MEAN PLATELET VOLUME 9.2 fL (9.2-13.0); MONOCYTES 12.3 %; MONOCYTES ABSOLUTE 1.75 10/3/uL (0.21-1.20); NEUTROPHILS 80.5 %; NEUTROPHILS ABSOLUTE 11.43 10/3/uL (2.02-8.40); PLATELET COUNT 398 10/3/uL (150-400); RBC DISTRIBUTION WIDTH 15.8 % (12.0-16.0); RED CELL COUNT 2.83 10/6/uL (4.0-5.6); WHITE BLOOD CELLS 14.2 10/3/uL (4.5-10.5)
[2016-07-14 10:25] LABS: MANUAL DIFF NO %
[2016-07-14 10:32] LABS: BUN (BLOOD UREA NITROGEN) 30 MG/DL (6-23); CALCIUM, SERUM 7.3 MG/DL (8.5-10.4); CHLORIDE, SERUM 102 MMOL/L (96-112); CO2 (CARBON DIOXIDE) 24 MMOL/L (24-34); CREATININE 1.83 MG/DL (0.55-1.02); GFR AFRICAN AMERICAN 31 ML/MIN (>=60); GFR NON AFRICAN AMERICAN 27 ML/MIN (>=60); GLUCOSE, SERUM 138 MG/DL (60-99); POTASSIUM, SERUM 3.5 MMOL/L (3.5-5.3); SODIUM, SERUM 138 MMOL/L (135-148)
[2016-07-14 15:07] LABS: PROCALCITONIN 0.58 ng/mL (<0.5)
[2016-07-14 16:24] LABS: BASOPHILS 0.3 %; BASOPHILS ABSOLUTE 0.04 10/3/uL (0.0-0.16); EOSINOPHILS 0.6 %; EOSINOPHILS ABSOLUTE 0.09 10/3/uL (0.0-0.53); HEMOGLOBIN 8.4 g/dL (12.0-16.0); IMMATURE GRANULOCYTES 0.7 %; LYMPHOCYTES 5.1 %; LYMPHOCYTES ABSOLUTE 0.74 10/3/uL (0.67-4.30); MEAN CORPUS HGB CONC 32.3 g/dL (32.0-36.0); MEAN CORPUSCULAR VOLUME 89.7 fL (80-100); MEAN PLATELET VOLUME 9.1 fL (9.2-13.0); MONOCYTES 13.7 %; MONOCYTES ABSOLUTE 1.97 10/3/uL (0.21-1.20); NEUTROPHILS 79.6 %; NEUTROPHILS ABSOLUTE 11.44 10/3/uL (2.02-8.40); PLATELET COUNT 404 10/3/uL (150-400); WHITE BLOOD CELLS 14.4 10/3/uL (4.5-10.5)
[2016-07-14 16:29] LABS: MANUAL DIFF NO %
[2016-07-14 16:46] LABS: CALCIUM, SERUM 7.7 MG/DL (8.5-10.4); CHLORIDE, SERUM 103 MMOL/L (96-112); CO2 (CARBON DIOXIDE) 23 MMOL/L (24-34); CREATININE 1.45 MG/DL (0.55-1.02); GFR AFRICAN AMERICAN 42 ML/MIN (>=60); GFR NON AFRICAN AMERICAN 36 ML/MIN (>=60); GLUCOSE, SERUM 115 MG/DL (60-99); POTASSIUM, SERUM 3.8 MMOL/L (3.5-5.3); SODIUM, SERUM 139 MMOL/L (135-148)
[2016-07-14 16:47] LABS: BUN (BLOOD UREA NITROGEN) 23 MG/DL (6-23)
[2016-07-14 22:25] LABS: BASOPHILS 0.1 %; BASOPHILS ABSOLUTE 0.01 10/3/uL (0.0-0.16); EOSINOPHILS 0.7 %; EOSINOPHILS ABSOLUTE 0.05 10/3/uL (0.0-0.53); IMMATURE GRANULOCYTES 0.6 %; IMMATURE GRANULOCYTES ABSOLUTE 0.04 10/3/uL (0.0-0.11); LYMPHOCYTES 6.3 %; LYMPHOCYTES ABSOLUTE 0.45 10/3/uL (0.67-4.30); MEAN CORPUS HGB CONC 31.4 g/dL (32.0-36.0); MEAN CORPUSCULAR HEMOGLOB 28.1 pg (26.0-34.0); MEAN CORPUSCULAR VOLUME 89.5 fL (80-100); MEAN PLATELET VOLUME 8.6 fL (9.2-13.0); MONOCYTES 12.1 %; MONOCYTES ABSOLUTE 0.86 10/3/uL (0.21-1.20); NEUTROPHILS 80.2 %; NEUTROPHILS ABSOLUTE 5.72 10/3/uL (2.02-8.40); RBC DISTRIBUTION WIDTH 16.1 % (12.0-16.0)
[2016-07-14 22:26] LABS: RED CELL COUNT 1.53 10/6/uL (4.0-5.6); WHITE BLOOD CELLS 7.1 10/3/uL (4.5-10.5)
[2016-07-14 22:27] LABS: HEMATOCRIT 13.7 % (36.0-48.0); HEMOGLOBIN 4.3 g/dL (12.0-16.0); PLATELET COUNT 204 10/3/uL (150-400)
[2016-07-14 22:31] LABS: MANUAL DIFF NO %
[2016-07-14 22:38] LABS: BUN (BLOOD UREA NITROGEN) 20 MG/DL (6-23); CALCIUM, SERUM 7.6 MG/DL (8.5-10.4); CHLORIDE, SERUM 102 MMOL/L (96-112); CO2 (CARBON DIOXIDE) 24 MMOL/L (24-34); CREATININE 1.33 MG/DL (0.55-1.02); GFR AFRICAN AMERICAN 46 ML/MIN (>=60); GFR NON AFRICAN AMERICAN 40 ML/MIN (>=60); GLUCOSE, SERUM 118 MG/DL (60-99); POTASSIUM, SERUM 3.8 MMOL/L (3.5-5.3); SODIUM, SERUM 140 MMOL/L (135-148)
[2016-07-14 22:49] LABS: MEAN CORPUS HGB CONC 32.8 g/dL (32.0-36.0); MEAN CORPUSCULAR HEMOGLOB 29.2 pg (26.0-34.0); MEAN PLATELET VOLUME 8.8 fL (9.2-13.0)
[2016-07-14 22:50] LABS: HEMOGLOBIN 8.2 g/dL (12.0-16.0); MANUAL DIFF YES %; PLATELET COUNT 362 10/3/uL (150-400); RED CELL COUNT 2.81 10/6/uL (4.0-5.6); WHITE BLOOD CELLS 13.5 10/3/uL (4.5-10.5)
[2016-07-14 23:02] LABS: BUN (BLOOD UREA NITROGEN) 20 MG/DL (6-23); CALCIUM, SERUM 7.6 MG/DL (8.5-10.4); CHLORIDE, SERUM 102 MMOL/L (96-112); CO2 (CARBON DIOXIDE) 23 MMOL/L (24-34); CREATININE 1.28 MG/DL (0.55-1.02); GFR AFRICAN AMERICAN 48 ML/MIN (>=60); GFR NON AFRICAN AMERICAN 42 ML/MIN (>=60); GLUCOSE, SERUM 128 MG/DL (60-99); POTASSIUM, SERUM 3.8 MMOL/L (3.5-5.3); SODIUM, SERUM 140 MMOL/L (135-148)
[2016-07-14 23:20] LABS: BAND NEUTROPHILS 1 %; LYMPHOCYTES 4 %; LYMPHOCYTES ABSOLUTE (CALC) 0.54 10/3/uL (0.67-4.30); MONOCYTES 6 %; MONOCYTES ABSOLUTE (CALC) 0.81 10/3/uL (0.21-1.20); NEUTROPHILS ABSOLUTE (CALC) 12.15 10/3/uL (2.02-8.40); PLATELET ESTIMATE ADQ (ADEQUATE); RBC MORPHOLOGY NORM (NORMAL); SEGMENTED NEUTROPHIL (0) 89 %; TOTAL NUCLEATED CELLS 100
[2016-07-15 03:28] LABS: BASOPHILS 0.4 %; BASOPHILS ABSOLUTE 0.05 10/3/uL (0.0-0.16); EOSINOPHILS 0.8 %; HEMOGLOBIN 8.1 g/dL (12.0-16.0); IMMATURE GRANULOCYTES 0.6 %; IMMATURE GRANULOCYTES ABSOLUTE 0.08 10/3/uL (0.0-0.11); LYMPHOCYTES 8.9 %; LYMPHOCYTES ABSOLUTE 1.11 10/3/uL (0.67-4.30); MEAN CORPUS HGB CONC 32.4 g/dL (32.0-36.0); MEAN CORPUSCULAR HEMOGLOB 29.1 pg (26.0-34.0); MEAN CORPUSCULAR VOLUME 89.9 fL (80-100); MONOCYTES ABSOLUTE 1.63 10/3/uL (0.21-1.20); NEUTROPHILS 76.3 %; NEUTROPHILS ABSOLUTE 9.54 10/3/uL (2.02-8.40); PLATELET COUNT 375 10/3/uL (150-400); RED CELL COUNT 2.78 10/6/uL (4.0-5.6); WHITE BLOOD CELLS 12.5 10/3/uL (4.5-10.5)
[2016-07-15 03:33] LABS: MANUAL DIFF NO %
[2016-07-15 03:43] LABS: CALCIUM, SERUM 7.3 MG/DL (8.5-10.4); CHLORIDE, SERUM 103 MMOL/L (96-112); CO2 (CARBON DIOXIDE) 24 MMOL/L (24-34); CREATININE 1.15 MG/DL (0.55-1.02); GFR AFRICAN AMERICAN 55 ML/MIN (>=60); GFR NON AFRICAN AMERICAN 47 ML/MIN (>=60); GLUCOSE, SERUM 116 MG/DL (60-99); POTASSIUM, SERUM 3.8 MMOL/L (3.5-5.3); SODIUM, SERUM 141 MMOL/L (135-148)
[2016-07-15 03:44] LABS: BUN (BLOOD UREA NITROGEN) 15 MG/DL (6-23); PHOSPHORUS, SERUM 3.1 MG/DL (2.5-4.5)
[2016-07-15 04:16] LABS: BE (BASE EXCESS) -2.1 MEQ/L (0 +/- 2.5); CARBOXYHEMOGLOBIN 0.2 % (0-3); HCO3 (ACTUAL BICARBONATE) 22.8 MEQ/L (23-27); HEMOBLOGIN CONTENT 9.2 G/DL (12-16); INSTRUMENT SERIAL # 35151; METHEMOGLOBIN 0.5 % (0-3); O2 CONTENT 12.7 VOL% (18-24); OPERATOR ID 13744; PCO2 (CO2 TENSION) 39 MMHG (35-45); PO2 (O2 TENSION) 100 MMHG (79-93); SAMPLE Arterial; pH 7.38 (7.37-7.43)
[2016-07-15 10:47] LABS: BASOPHILS 0.4 %; BASOPHILS ABSOLUTE 0.05 10/3/uL (0.0-0.16); EOSINOPHILS 1.1 %; EOSINOPHILS ABSOLUTE 0.13 10/3/uL (0.0-0.53); HEMATOCRIT 24.9 % (36.0-48.0); HEMOGLOBIN 8.2 g/dL (12.0-16.0); IMMATURE GRANULOCYTES 0.4 %; IMMATURE GRANULOCYTES ABSOLUTE 0.05 10/3/uL (0.0-0.11); LYMPHOCYTES 6.9 %; LYMPHOCYTES ABSOLUTE 0.81 10/3/uL (0.67-4.30); MEAN CORPUS HGB CONC 32.9 g/dL (32.0-36.0); MEAN CORPUSCULAR HEMOGLOB 29.3 pg (26.0-34.0); MEAN CORPUSCULAR VOLUME 88.9 fL (80-100); MONOCYTES 15.9 %; MONOCYTES ABSOLUTE 1.88 10/3/uL (0.21-1.20); NEUTROPHILS 75.3 %; NEUTROPHILS ABSOLUTE 8.87 10/3/uL (2.02-8.40); PLATELET COUNT 368 10/3/uL (150-400); RBC DISTRIBUTION WIDTH 15.9 % (12.0-16.0); WHITE BLOOD CELLS 11.8 10/3/uL (4.5-10.5)
[2016-07-15 10:48] LABS: MANUAL DIFF NO %
[2016-07-15 11:01] LABS: BUN (BLOOD UREA NITROGEN) 13 MG/DL (6-23); CALCIUM, SERUM 8.2 MG/DL (8.5-10.4); CHLORIDE, SERUM 103 MMOL/L (96-112); CO2 (CARBON DIOXIDE) 25 MMOL/L (24-34); CREATININE 1.09 MG/DL (0.55-1.02); GFR AFRICAN AMERICAN 59 ML/MIN (>=60); GFR NON AFRICAN AMERICAN 51 ML/MIN (>=60); GLUCOSE, SERUM 113 MG/DL (60-99); POTASSIUM, SERUM 3.7 MMOL/L (3.5-5.3); SODIUM, SERUM 139 MMOL/L (135-148)
[2016-07-15 16:35] LABS: BASOPHILS 0.5 %; BASOPHILS ABSOLUTE 0.06 10/3/uL (0.0-0.16); EOSINOPHILS 0.7 %; EOSINOPHILS ABSOLUTE 0.08 10/3/uL (0.0-0.53); HEMATOCRIT 24.1 % (36.0-48.0); HEMOGLOBIN 7.6 g/dL (12.0-16.0); IMMATURE GRANULOCYTES 0.5 %; IMMATURE GRANULOCYTES ABSOLUTE 0.05 10/3/uL (0.0-0.11); LYMPHOCYTES 6.7 %; LYMPHOCYTES ABSOLUTE 0.74 10/3/uL (0.67-4.30); MEAN CORPUS HGB CONC 31.5 g/dL (32.0-36.0); MEAN CORPUSCULAR HEMOGLOB 28.5 pg (26.0-34.0); MEAN CORPUSCULAR VOLUME 90.3 fL (80-100); MEAN PLATELET VOLUME 9.1 fL (9.2-13.0); MONOCYTES 15.4 %; MONOCYTES ABSOLUTE 1.71 10/3/uL (0.21-1.20); NEUTROPHILS 76.2 %; NEUTROPHILS ABSOLUTE 8.47 10/3/uL (2.02-8.40); PLATELET COUNT 349 10/3/uL (150-400); RBC DISTRIBUTION WIDTH 16.2 % (12.0-16.0); RED CELL COUNT 2.67 10/6/uL (4.0-5.6); WHITE BLOOD CELLS 11.1 10/3/uL (4.5-10.5)
[2016-07-15 16:36] LABS: MANUAL DIFF NO %
[2016-07-15 16:39] LABS: BUN (BLOOD UREA NITROGEN) 11 MG/DL (6-23); CHLORIDE, SERUM 104 MMOL/L (96-112); CO2 (CARBON DIOXIDE) 25 MMOL/L (24-34); CREATININE 1.05 MG/DL (0.55-1.02); GFR AFRICAN AMERICAN 61 ML/MIN (>=60); GFR NON AFRICAN AMERICAN 53 ML/MIN (>=60); GLUCOSE, SERUM 111 MG/DL (60-99); PHOSPHORUS, SERUM 2.2 MG/DL (2.5-4.5); POTASSIUM, SERUM 3.7 MMOL/L (3.5-5.3); SODIUM, SERUM 140 MMOL/L (135-148)
[2016-07-15 21:29] LABS: BASOPHILS 0.5 %; BASOPHILS ABSOLUTE 0.05 10/3/uL (0.0-0.16); EOSINOPHILS 0.7 %; EOSINOPHILS ABSOLUTE 0.07 10/3/uL (0.0-0.53); HEMATOCRIT 24.8 % (36.0-48.0); HEMOGLOBIN 7.9 g/dL (12.0-16.0); IMMATURE GRANULOCYTES 0.3 %; IMMATURE GRANULOCYTES ABSOLUTE 0.03 10/3/uL (0.0-0.11); LYMPHOCYTES 13.1 %; MEAN CORPUS HGB CONC 31.9 g/dL (32.0-36.0); MEAN CORPUSCULAR HEMOGLOB 28.6 pg (26.0-34.0); MEAN CORPUSCULAR VOLUME 89.9 fL (80-100); MEAN PLATELET VOLUME 8.9 fL (9.2-13.0); MONOCYTES 8.1 %; MONOCYTES ABSOLUTE 0.86 10/3/uL (0.21-1.20); NEUTROPHILS 77.3 %; NEUTROPHILS ABSOLUTE 8.26 10/3/uL (2.02-8.40); PLATELET COUNT 362 10/3/uL (150-400); RED CELL COUNT 2.76 10/6/uL (4.0-5.6); WHITE BLOOD CELLS 10.7 10/3/uL (4.5-10.5)
[2016-07-15 21:30] LABS: MANUAL DIFF NO %
[2016-07-15 21:36] LABS: BUN (BLOOD UREA NITROGEN) 10 MG/DL (6-23); CALCIUM, SERUM 8.1 MG/DL (8.5-10.4); CHLORIDE, SERUM 103 MMOL/L (96-112); CO2 (CARBON DIOXIDE) 24 MMOL/L (24-34); CREATININE 0.97 MG/DL (0.55-1.02); GFR AFRICAN AMERICAN 68 ML/MIN (>=60); GFR NON AFRICAN AMERICAN 58 ML/MIN (>=60); GLUCOSE, SERUM 110 MG/DL (60-99); POTASSIUM, SERUM 3.8 MMOL/L (3.5-5.3); SODIUM, SERUM 141 MMOL/L (135-148)
[2016-07-16 04:06] LABS: BASOPHILS 0.5 %; BASOPHILS ABSOLUTE 0.05 10/3/uL (0.0-0.16); EOSINOPHILS 0.8 %; EOSINOPHILS ABSOLUTE 0.08 10/3/uL (0.0-0.53); HEMATOCRIT 24.2 % (36.0-48.0); HEMOGLOBIN 7.9 g/dL (12.0-16.0); IMMATURE GRANULOCYTES 0.3 %; IMMATURE GRANULOCYTES ABSOLUTE 0.03 10/3/uL (0.0-0.11); LYMPHOCYTES 8.9 %; LYMPHOCYTES ABSOLUTE 0.87 10/3/uL (0.67-4.30); MEAN CORPUS HGB CONC 32.6 g/dL (32.0-36.0); MEAN CORPUSCULAR HEMOGLOB 29.8 pg (26.0-34.0); MEAN CORPUSCULAR VOLUME 91.3 fL (80-100); MONOCYTES 14.9 %; MONOCYTES ABSOLUTE 1.46 10/3/uL (0.21-1.20); NEUTROPHILS 74.6 %; NEUTROPHILS ABSOLUTE 7.34 10/3/uL (2.02-8.40); PLATELET COUNT 343 10/3/uL (150-400); RBC DISTRIBUTION WIDTH 15.8 % (12.0-16.0); RED CELL COUNT 2.65 10/6/uL (4.0-5.6); WHITE BLOOD CELLS 9.8 10/3/uL (4.5-10.5)
[2016-07-16 04:08] LABS: MANUAL DIFF NO %
[2016-07-16 04:14] LABS: INTERNATIONAL NORMAL RATI 1.5 UNITS (-); PROTIME (NOT ORD) 18.3 SEC (12.0-14.5)
[2016-07-16 04:37] LABS: BE (BASE EXCESS) -2.8 MEQ/L (0 +/- 2.5); BIPAP 14/6 cm.H2O; CARBOXYHEMOGLOBIN 0.4 % (0-3); HCO3 (ACTUAL BICARBONATE) 21.1 MEQ/L (23-27); HEMOBLOGIN CONTENT 8.7 G/DL (12-16); INSTRUMENT SERIAL # 35151; METHEMOGLOBIN 0.8 % (0-3); PCO2 (CO2 TENSION) 33 MMHG (35-45); PO2 (O2 TENSION) 110 MMHG (79-93); SAMPLE Arterial; pH 7.42 (7.37-7.43)
[2016-07-16 04:46] LABS: ALBUMIN 2.7 G/DL (3.5-5.0); ALKALINE PHOSPHATASE 60 U/L (45-117); BUN (BLOOD UREA NITROGEN) 8 MG/DL (6-23); CALCIUM, SERUM 8.6 MG/DL (8.5-10.4); CHLORIDE, SERUM 104 MMOL/L (96-112); CO2 (CARBON DIOXIDE) 25 MMOL/L (24-34); CREATININE 0.94 MG/DL (0.55-1.02); DIRECT BILIRUBIN 0.3 MG/DL (0.0-0.4); FOLATE 12.5 NG/ML (>5.2); GFR AFRICAN AMERICAN 70 ML/MIN (>=60); GFR NON AFRICAN AMERICAN 61 ML/MIN (>=60); GLUCOSE, SERUM 90 MG/DL (60-99); INDIRECT BILIRUBIN(NOT ORDER) 0.9 MG/DL (0.1-0.9); PHOSPHORUS, SERUM 2.6 MG/DL (2.5-4.5); POTASSIUM, SERUM 3.9 MMOL/L (3.5-5.3); SGOT(AST) 15 U/L (5-40); SGPT(ALT) 7 U/L (5-65); SODIUM, SERUM 139 MMOL/L (135-148); TOTAL BILIRUBIN 1.2 MG/DL (0-1.2); TOTAL PROTEIN 6.5 G/DL (6.0-8.5)
[2016-07-16 07:02] LABS: PROCALCITONIN 0.42 ng/mL (<0.5)
[2016-07-16 10:22] LABS: BE (BASE EXCESS) -2.1 MEQ/L (0 +/- 2.5); DEVICE NC; HEMOBLOGIN CONTENT 8.9 G/DL (12-16); INSTRUMENT SERIAL # 35151; METHEMOGLOBIN 0.6 % (0-3); PCO2 (CO2 TENSION) 35 MMHG (35-45); PO2 (O2 TENSION) 82 MMHG (79-93); SAMPLE Arterial; pH 7.42 (7.37-7.43)
[2016-07-17 05:08] LABS: BASOPHILS 0.6 %; BASOPHILS ABSOLUTE 0.07 10/3/uL (0.0-0.16); EOSINOPHILS 0.6 %; EOSINOPHILS ABSOLUTE 0.07 10/3/uL (0.0-0.53); HEMATOCRIT 25.4 % (36.0-48.0); HEMOGLOBIN 7.8 g/dL (12.0-16.0); IMMATURE GRANULOCYTES 0.7 %; IMMATURE GRANULOCYTES ABSOLUTE 0.08 10/3/uL (0.0-0.11); LYMPHOCYTES 10.8 %; LYMPHOCYTES ABSOLUTE 1.28 10/3/uL (0.67-4.30); MEAN CORPUSCULAR HEMOGLOB 28.2 pg (26.0-34.0); MEAN CORPUSCULAR VOLUME 91.7 fL (80-100); MEAN PLATELET VOLUME 9.2 fL (9.2-13.0); MONOCYTES 11.3 %; MONOCYTES ABSOLUTE 1.33 10/3/uL (0.21-1.20); NEUTROPHILS ABSOLUTE 8.98 10/3/uL (2.02-8.40); PLATELET COUNT 376 10/3/uL (150-400); RED CELL COUNT 2.77 10/6/uL (4.0-5.6); WHITE BLOOD CELLS 11.8 10/3/uL (4.5-10.5)
[2016-07-17 05:11] LABS: MANUAL DIFF NO %; MEAN CORPUS HGB CONC 30.7 g/dL (32.0-36.0)
[2016-07-17 05:32] LABS: CALCIUM, SERUM 8.4 MG/DL (8.5-10.4); CHLORIDE, SERUM 106 MMOL/L (96-112); CO2 (CARBON DIOXIDE) 21 MMOL/L (24-34); SODIUM, SERUM 141 MMOL/L (135-148)
[2016-07-17 05:34] LABS: BUN (BLOOD UREA NITROGEN) 21 MG/DL (6-23)
[2016-07-17 05:35] LABS: CREATININE 2.11 MG/DL (0.55-1.02); GFR AFRICAN AMERICAN 26 ML/MIN (>=60); GFR NON AFRICAN AMERICAN 23 ML/MIN (>=60); GLUCOSE, SERUM 115 MG/DL (60-99); PHOSPHORUS, SERUM 3.6 MG/DL (2.5-4.5)
[2016-07-17 11:09] LABS: ASCORBIC ACID (UR NOT ORDER) NEG (NEG); BILIRUBIN, URINE NEGATIVE (NEG); KETONE, URINE TRACE MG/DL (NEG); LEUKOCYTE ESTERASE(NOT OR MOD (NEG); WBC (NOT ORDERED) (RFLEX) 8 (0-5)
[2016-07-18 04:14] LABS: BASOPHILS 0.4 %; BASOPHILS ABSOLUTE 0.05 10/3/uL (0.0-0.16); EOSINOPHILS 0.9 %; HEMATOCRIT 24.6 % (36.0-48.0); HEMOGLOBIN 7.9 g/dL (12.0-16.0); IMMATURE GRANULOCYTES 0.6 %; IMMATURE GRANULOCYTES ABSOLUTE 0.07 10/3/uL (0.0-0.11); LYMPHOCYTES 10.1 %; LYMPHOCYTES ABSOLUTE 1.15 10/3/uL (0.67-4.30); MEAN CORPUS HGB CONC 32.1 g/dL (32.0-36.0); MEAN CORPUSCULAR HEMOGLOB 28.8 pg (26.0-34.0); MEAN CORPUSCULAR VOLUME 89.8 fL (80-100); MEAN PLATELET VOLUME 9.3 fL (9.2-13.0); MONOCYTES 9.5 %; MONOCYTES ABSOLUTE 1.08 10/3/uL (0.21-1.20); NEUTROPHILS 78.5 %; NEUTROPHILS ABSOLUTE 8.89 10/3/uL (2.02-8.40); PLATELET COUNT 390 10/3/uL (150-400); RBC DISTRIBUTION WIDTH 16.2 % (12.0-16.0); RED CELL COUNT 2.74 10/6/uL (4.0-5.6); WHITE BLOOD CELLS 11.3 10/3/uL (4.5-10.5)
[2016-07-18 04:15] LABS: MANUAL DIFF NO %
[2016-07-18 04:22] LABS: CALCIUM, SERUM 8.6 MG/DL (8.5-10.4); CHLORIDE, SERUM 107 MMOL/L (96-112); CO2 (CARBON DIOXIDE) 23 MMOL/L (24-34); GFR AFRICAN AMERICAN 17 ML/MIN (>=60); GFR NON AFRICAN AMERICAN 14 ML/MIN (>=60); GLUCOSE, SERUM 132 MG/DL (60-99); PHOSPHORUS, SERUM 3.6 MG/DL (2.5-4.5); POTASSIUM, SERUM 3.7 MMOL/L (3.5-5.3); SODIUM, SERUM 143 MMOL/L (135-148)
[2016-07-18 04:24] LABS: BUN (BLOOD UREA NITROGEN) 31 MG/DL (6-23); CREATININE 3.11 MG/DL (0.55-1.02)
[2016-07-18 13:42] LABS: CK-MB 2.5 NG/ML; CPK 14 U/L (0-200); TROPONIN I 0.51 NG/ML (<0.05)
[2016-07-19 04:10] LABS: BASOPHILS 0.4 %; BASOPHILS ABSOLUTE 0.05 10/3/uL (0.0-0.16); EOSINOPHILS 1.1 %; EOSINOPHILS ABSOLUTE 0.13 10/3/uL (0.0-0.53); HEMATOCRIT 25.9 % (36.0-48.0); HEMOGLOBIN 8.3 g/dL (12.0-16.0); IMMATURE GRANULOCYTES 0.7 %; IMMATURE GRANULOCYTES ABSOLUTE 0.09 10/3/uL (0.0-0.11); LYMPHOCYTES 9.9 %; MANUAL DIFF NO %; MEAN CORPUSCULAR HEMOGLOB 29.1 pg (26.0-34.0); MEAN CORPUSCULAR VOLUME 90.9 fL (80-100); MEAN PLATELET VOLUME 9.1 fL (9.2-13.0); MONOCYTES 10.3 %; MONOCYTES ABSOLUTE 1.25 10/3/uL (0.21-1.20); NEUTROPHILS 77.6 %; NEUTROPHILS ABSOLUTE 9.38 10/3/uL (2.02-8.40); PLATELET COUNT 387 10/3/uL (150-400); RBC DISTRIBUTION WIDTH 16.1 % (12.0-16.0); RED CELL COUNT 2.85 10/6/uL (4.0-5.6); WHITE BLOOD CELLS 12.1 10/3/uL (4.5-10.5)
[2016-07-19 04:26] LABS: ALBUMIN 2.3 G/DL (3.5-5.0); CALCIUM, SERUM 8.4 MG/DL (8.5-10.4); CHLORIDE, SERUM 106 MMOL/L (96-112); CO2 (CARBON DIOXIDE) 24 MMOL/L (24-34); CREATININE 3.24 MG/DL (0.55-1.02); GFR AFRICAN AMERICAN 16 ML/MIN (>=60); GFR NON AFRICAN AMERICAN 14 ML/MIN (>=60); GLUCOSE, SERUM 126 MG/DL (60-99); PHOSPHORUS, SERUM 3.5 MG/DL (2.5-4.5); POTASSIUM, SERUM 3.9 MMOL/L (3.5-5.3); SODIUM, SERUM 141 MMOL/L (135-148)
[2016-07-19 04:27] LABS: BUN (BLOOD UREA NITROGEN) 27 MG/DL (6-23)
[2016-07-20 04:24] LABS: BASOPHILS 0.7 %; BASOPHILS ABSOLUTE 0.08 10/3/uL (0.0-0.16); EOSINOPHILS ABSOLUTE 0.11 10/3/uL (0.0-0.53); HEMATOCRIT 27.3 % (36.0-48.0); HEMOGLOBIN 8.7 g/dL (12.0-16.0); IMMATURE GRANULOCYTES 0.9 %; LYMPHOCYTES 11.5 %; LYMPHOCYTES ABSOLUTE 1.26 10/3/uL (0.67-4.30); MEAN CORPUS HGB CONC 31.9 g/dL (32.0-36.0); MEAN CORPUSCULAR HEMOGLOB 29.8 pg (26.0-34.0); MEAN CORPUSCULAR VOLUME 93.5 fL (80-100); MEAN PLATELET VOLUME 8.9 fL (9.2-13.0); MONOCYTES ABSOLUTE 1.53 10/3/uL (0.21-1.20); NEUTROPHILS 71.9 %; NEUTROPHILS ABSOLUTE 7.88 10/3/uL (2.02-8.40); PLATELET COUNT 366 10/3/uL (150-400); RBC DISTRIBUTION WIDTH 16.3 % (12.0-16.0); RED CELL COUNT 2.92 10/6/uL (4.0-5.6)
[2016-07-20 04:25] LABS: MANUAL DIFF NO %
[2016-07-20 04:40] LABS: CALCIUM, SERUM 8.6 MG/DL (8.5-10.4); CHLORIDE, SERUM 105 MMOL/L (96-112); CO2 (CARBON DIOXIDE) 22 MMOL/L (24-34); GFR AFRICAN AMERICAN 11 ML/MIN (>=60); GFR NON AFRICAN AMERICAN 9 ML/MIN (>=60); GLUCOSE, SERUM 103 MG/DL (60-99); PHOSPHORUS, SERUM 4.4 MG/DL (2.5-4.5); POTASSIUM, SERUM 4.1 MMOL/L (3.5-5.3); SODIUM, SERUM 140 MMOL/L (135-148)
[2016-07-20 04:42] LABS: BUN (BLOOD UREA NITROGEN) 38 MG/DL (6-23); CREATININE 4.45 MG/DL (0.55-1.02)
[2016-07-21 04:14] LABS: BASOPHILS 0.9 %; BASOPHILS ABSOLUTE 0.08 10/3/uL (0.0-0.16); EOSINOPHILS 1.4 %; EOSINOPHILS ABSOLUTE 0.12 10/3/uL (0.0-0.53); HEMOGLOBIN 7.7 g/dL (12.0-16.0); IMMATURE GRANULOCYTES 0.6 %; IMMATURE GRANULOCYTES ABSOLUTE 0.05 10/3/uL (0.0-0.11); LYMPHOCYTES 13.8 %; LYMPHOCYTES ABSOLUTE 1.17 10/3/uL (0.67-4.30); MEAN CORPUS HGB CONC 32.1 g/dL (32.0-36.0); MEAN CORPUSCULAR VOLUME 93.4 fL (80-100); MEAN PLATELET VOLUME 8.7 fL (9.2-13.0); MONOCYTES 11.9 %; MONOCYTES ABSOLUTE 1.01 10/3/uL (0.21-1.20); NEUTROPHILS 71.4 %; NEUTROPHILS ABSOLUTE 6.06 10/3/uL (2.02-8.40); PLATELET COUNT 338 10/3/uL (150-400); RBC DISTRIBUTION WIDTH 16.3 % (12.0-16.0); RED CELL COUNT 2.57 10/6/uL (4.0-5.6); WHITE BLOOD CELLS 8.5 10/3/uL (4.5-10.5)
[2016-07-21 04:17] LABS: MANUAL DIFF NO %
[2016-07-21 04:34] LABS: CALCIUM, SERUM 8.6 MG/DL (8.5-10.4); CHLORIDE, SERUM 107 MMOL/L (96-112); CO2 (CARBON DIOXIDE) 20 MMOL/L (24-34); GFR AFRICAN AMERICAN 8 ML/MIN (>=60); GFR NON AFRICAN AMERICAN 7 ML/MIN (>=60); GLUCOSE, SERUM 97 MG/DL (60-99); PHOSPHORUS, SERUM 5.3 MG/DL (2.5-4.5); POTASSIUM, SERUM 4.3 MMOL/L (3.5-5.3); SODIUM, SERUM 141 MMOL/L (135-148)
[2016-07-21 04:42] LABS: BUN (BLOOD UREA NITROGEN) 50 MG/DL (6-23)
[2016-07-21 10:01] LABS: HEPATITIS B SURFACE ANTIGEN NON-REACTIVE (NON-REACT)
[2016-07-21 10:28] LABS: HEPATITIS C ANTIBODY NON-REACTIVE (NON-REACT)
[2016-07-21 10:29] LABS: HEPATITIS B CORE AB IGM NON-REACTIVE (NON-REAC); HIV COMBO NON-REACTIVE (NON REAC)
[2016-07-21 10:30] LABS: HEP A ANTIBODY IGM NON-REACTIVE (NON-REACT)
[2016-07-22 06:36] LABS: BASOPHILS 0.5 %; BASOPHILS ABSOLUTE 0.04 10/3/uL (0.0-0.16); EOSINOPHILS 1.2 %; HEMATOCRIT 24.7 % (36.0-48.0); HEMOGLOBIN 7.8 g/dL (12.0-16.0); IMMATURE GRANULOCYTES 0.4 %; IMMATURE GRANULOCYTES ABSOLUTE 0.03 10/3/uL (0.0-0.11); LYMPHOCYTES 12.3 %; LYMPHOCYTES ABSOLUTE 1.05 10/3/uL (0.67-4.30); MEAN CORPUS HGB CONC 31.6 g/dL (32.0-36.0); MEAN CORPUSCULAR HEMOGLOB 29.3 pg (26.0-34.0); MEAN CORPUSCULAR VOLUME 92.9 fL (80-100); MONOCYTES 13.7 %; MONOCYTES ABSOLUTE 1.17 10/3/uL (0.21-1.20); NEUTROPHILS 71.9 %; NEUTROPHILS ABSOLUTE 6.18 10/3/uL (2.02-8.40); PLATELET COUNT 360 10/3/uL (150-400); RBC DISTRIBUTION WIDTH 16.2 % (12.0-16.0); RED CELL COUNT 2.66 10/6/uL (4.0-5.6); WHITE BLOOD CELLS 8.6 10/3/uL (4.5-10.5)
[2016-07-22 06:38] LABS: MANUAL DIFF NO %
[2016-07-22 06:49] LABS: ALBUMIN 2.5 G/DL (3.5-5.0); CALCIUM, SERUM 8.3 MG/DL (8.5-10.4); CHLORIDE, SERUM 107 MMOL/L (96-112); CO2 (CARBON DIOXIDE) 24 MMOL/L (24-34); PHOSPHORUS, SERUM 4.7 MG/DL (2.5-4.5); POTASSIUM, SERUM 4.2 MMOL/L (3.5-5.3); SODIUM, SERUM 142 MMOL/L (135-148)
[2016-07-22 06:50] LABS: BUN (BLOOD UREA NITROGEN) 44 MG/DL (6-23); CREATININE 4.94 MG/DL (0.55-1.02); GFR AFRICAN AMERICAN 9 ML/MIN (>=60); GFR NON AFRICAN AMERICAN 8 ML/MIN (>=60); GLUCOSE, SERUM 135 MG/DL (60-99)
[2016-07-23 05:01] LABS: BASOPHILS 0.5 %; BASOPHILS ABSOLUTE 0.04 10/3/uL (0.0-0.16); EOSINOPHILS 1.4 %; EOSINOPHILS ABSOLUTE 0.11 10/3/uL (0.0-0.53); HEMATOCRIT 23.3 % (36.0-48.0); HEMOGLOBIN 7.5 g/dL (12.0-16.0); IMMATURE GRANULOCYTES 0.3 %; IMMATURE GRANULOCYTES ABSOLUTE 0.02 10/3/uL (0.0-0.11); LYMPHOCYTES 14.4 %; LYMPHOCYTES ABSOLUTE 1.13 10/3/uL (0.67-4.30); MEAN CORPUS HGB CONC 32.2 g/dL (32.0-36.0); MEAN CORPUSCULAR HEMOGLOB 29.9 pg (26.0-34.0); MEAN CORPUSCULAR VOLUME 92.8 fL (80-100); MEAN PLATELET VOLUME 9.2 fL (9.2-13.0); MONOCYTES 14.4 %; MONOCYTES ABSOLUTE 1.13 10/3/uL (0.21-1.20); PLATELET COUNT 315 10/3/uL (150-400); RBC DISTRIBUTION WIDTH 16.1 % (12.0-16.0); RED CELL COUNT 2.51 10/6/uL (4.0-5.6); WHITE BLOOD CELLS 7.8 10/3/uL (4.5-10.5)
[2016-07-23 05:02] LABS: MANUAL DIFF NO %
[2016-07-23 05:13] LABS: CALCIUM, SERUM 8.1 MG/DL (8.5-10.4); CHLORIDE, SERUM 106 MMOL/L (96-112); CO2 (CARBON DIOXIDE) 23 MMOL/L (24-34); GFR AFRICAN AMERICAN 7 ML/MIN (>=60); GFR NON AFRICAN AMERICAN 6 ML/MIN (>=60); GLUCOSE, SERUM 119 MG/DL (60-99); PHOSPHORUS, SERUM 5.2 MG/DL (2.5-4.5); POTASSIUM, SERUM 4.5 MMOL/L (3.5-5.3); SODIUM, SERUM 140 MMOL/L (135-148)
[2016-07-23 05:17] LABS: BUN (BLOOD UREA NITROGEN) 54 MG/DL (6-23); CREATININE 6.06 MG/DL (0.55-1.02)
[2016-07-24 04:20] LABS: BASOPHILS 0.6 %; BASOPHILS ABSOLUTE 0.04 10/3/uL (0.0-0.16); EOSINOPHILS 1.8 %; EOSINOPHILS ABSOLUTE 0.12 10/3/uL (0.0-0.53); HEMATOCRIT 23.5 % (36.0-48.0); HEMOGLOBIN 7.2 g/dL (12.0-16.0); IMMATURE GRANULOCYTES 0.3 %; IMMATURE GRANULOCYTES ABSOLUTE 0.02 10/3/uL (0.0-0.11); LYMPHOCYTES 17.7 %; LYMPHOCYTES ABSOLUTE 1.21 10/3/uL (0.67-4.30); MEAN CORPUS HGB CONC 30.6 g/dL (32.0-36.0); MEAN CORPUSCULAR HEMOGLOB 28.5 pg (26.0-34.0); MEAN CORPUSCULAR VOLUME 92.9 fL (80-100); MEAN PLATELET VOLUME 9.3 fL (9.2-13.0); MONOCYTES ABSOLUTE 0.75 10/3/uL (0.21-1.20); NEUTROPHILS 68.6 %; NEUTROPHILS ABSOLUTE 4.68 10/3/uL (2.02-8.40); PLATELET COUNT 284 10/3/uL (150-400); RBC DISTRIBUTION WIDTH 16.2 % (12.0-16.0); RED CELL COUNT 2.53 10/6/uL (4.0-5.6); WHITE BLOOD CELLS 6.8 10/3/uL (4.5-10.5)
[2016-07-24 04:24] LABS: MANUAL DIFF NO %
[2016-07-24 04:31] LABS: A/G RATIO 0.7 (0.7-1.9); ALBUMIN 2.6 G/DL (3.5-5.0); ALKALINE PHOSPHATASE 65 U/L (45-117); CHLORIDE, SERUM 107 MMOL/L (96-112); CO2 (CARBON DIOXIDE) 25 MMOL/L (24-34); GLOBULIN 3.9 G/DL (2.5-4.1); GLUCOSE, SERUM 123 MG/DL (60-99); POTASSIUM, SERUM 4.4 MMOL/L (3.5-5.3); SGOT(AST) 10 U/L (5-40); SGPT(ALT) 11 U/L (5-65); SODIUM, SERUM 142 MMOL/L (135-148); TOTAL BILIRUBIN 0.8 MG/DL (0-1.2); TOTAL PROTEIN 6.5 G/DL (6.0-8.5)
[2016-07-24 04:39] LABS: BUN (BLOOD UREA NITROGEN) 36 MG/DL (6-23); CREATININE 4.41 MG/DL (0.55-1.02); GFR AFRICAN AMERICAN 11 ML/MIN (>=60); GFR NON AFRICAN AMERICAN 9 ML/MIN (>=60); PHOSPHORUS, SERUM 3.7 MG/DL (2.5-4.5)
[2016-07-24 16:27] LABS: HEMOGLOBIN 7.9 g/dL (12.0-16.0)
[2016-07-24 16:29] LABS: HEMATOCRIT 26.2 % (36.0-48.0)
[2016-07-25 06:06] LABS: BASOPHILS 0.5 %; BASOPHILS ABSOLUTE 0.05 10/3/uL (0.0-0.16); EOSINOPHILS 1.1 %; HEMOGLOBIN 7.4 g/dL (12.0-16.0); IMMATURE GRANULOCYTES 0.2 %; IMMATURE GRANULOCYTES ABSOLUTE 0.02 10/3/uL (0.0-0.11); LYMPHOCYTES 11.9 %; MEAN CORPUS HGB CONC 31.6 g/dL (32.0-36.0); MEAN CORPUSCULAR HEMOGLOB 29.6 pg (26.0-34.0); MEAN CORPUSCULAR VOLUME 93.6 fL (80-100); MEAN PLATELET VOLUME 9.8 fL (9.2-13.0); MONOCYTES 11.6 %; MONOCYTES ABSOLUTE 1.07 10/3/uL (0.21-1.20); NEUTROPHILS 74.7 %; NEUTROPHILS ABSOLUTE 6.89 10/3/uL (2.02-8.40); PLATELET COUNT 334 10/3/uL (150-400); RBC DISTRIBUTION WIDTH 16.2 % (12.0-16.0); WHITE BLOOD CELLS 9.2 10/3/uL (4.5-10.5)
[2016-07-25 06:09] LABS: HEMATOCRIT 23.4 % (36.0-48.0); MANUAL DIFF NO %
[2016-07-25 06:18] LABS: A/G RATIO 0.6 (0.7-1.9); ALBUMIN 2.5 G/DL (3.5-5.0); ALKALINE PHOSPHATASE 68 U/L (45-117); CALCIUM, SERUM 8.3 MG/DL (8.5-10.4); CHLORIDE, SERUM 105 MMOL/L (96-112); CO2 (CARBON DIOXIDE) 23 MMOL/L (24-34); GLOBULIN 4.1 G/DL (2.5-4.1); POTASSIUM, SERUM 5.2 MMOL/L (3.5-5.3); SGOT(AST) 10 U/L (5-40); SGPT(ALT) 13 U/L (5-65); SODIUM, SERUM 142 MMOL/L (135-148); TOTAL BILIRUBIN 0.8 MG/DL (0-1.2); TOTAL PROTEIN 6.6 G/DL (6.0-8.5)
[2016-07-25 06:19] LABS: BUN (BLOOD UREA NITROGEN) 60 MG/DL (6-23); GFR AFRICAN AMERICAN 8 ML/MIN (>=60); GFR NON AFRICAN AMERICAN 7 ML/MIN (>=60); GLUCOSE, SERUM 95 MG/DL (60-99)
[2016-07-25 06:52] LABS: BASOPHILS 0.4 %; BASOPHILS ABSOLUTE 0.04 10/3/uL (0.0-0.16); EOSINOPHILS ABSOLUTE 0.09 10/3/uL (0.0-0.53); HEMATOCRIT 23.7 % (36.0-48.0); HEMOGLOBIN 7.6 g/dL (12.0-16.0); IMMATURE GRANULOCYTES 0.3 %; IMMATURE GRANULOCYTES ABSOLUTE 0.03 10/3/uL (0.0-0.11); LYMPHOCYTES 12.1 %; LYMPHOCYTES ABSOLUTE 1.12 10/3/uL (0.67-4.30); MEAN CORPUS HGB CONC 32.1 g/dL (32.0-36.0); MEAN CORPUSCULAR VOLUME 93.7 fL (80-100); MEAN PLATELET VOLUME 9.2 fL (9.2-13.0); MONOCYTES 9.4 %; MONOCYTES ABSOLUTE 0.87 10/3/uL (0.21-1.20); NEUTROPHILS 76.8 %; NEUTROPHILS ABSOLUTE 7.09 10/3/uL (2.02-8.40); PLATELET COUNT 321 10/3/uL (150-400); RBC DISTRIBUTION WIDTH 16.2 % (12.0-16.0); RED CELL COUNT 2.53 10/6/uL (4.0-5.6); WHITE BLOOD CELLS 9.2 10/3/uL (4.5-10.5)
[2016-07-25 06:53] LABS: MANUAL DIFF NO %
[2016-07-25 06:58] LABS: INTERNATIONAL NORMAL RATI 4.4 UNITS (-)
[2016-07-25 07:03] LABS: ALBUMIN 2.6 G/DL (3.5-5.0); BUN (BLOOD UREA NITROGEN) 61 MG/DL (6-23); CALCIUM, SERUM 8.2 MG/DL (8.5-10.4); CHLORIDE, SERUM 105 MMOL/L (96-112); CO2 (CARBON DIOXIDE) 23 MMOL/L (24-34); CREATININE 5.66 MG/DL (0.55-1.02); GFR AFRICAN AMERICAN 8 ML/MIN (>=60); GFR NON AFRICAN AMERICAN 7 ML/MIN (>=60); GLUCOSE, SERUM 98 MG/DL (60-99); POTASSIUM, SERUM 5.1 MMOL/L (3.5-5.3); SODIUM, SERUM 142 MMOL/L (135-148)
[2016-07-25 07:04] LABS: PHOSPHORUS, SERUM 5.6 MG/DL (2.5-4.5)
[2016-07-26 06:07] LABS: BASOPHILS 0.5 %; BASOPHILS ABSOLUTE 0.05 10/3/uL (0.0-0.16); EOSINOPHILS 1.9 %; EOSINOPHILS ABSOLUTE 0.18 10/3/uL (0.0-0.53); HEMATOCRIT 26.4 % (36.0-48.0); HEMOGLOBIN 8.5 g/dL (12.0-16.0); IMMATURE GRANULOCYTES 0.3 %; IMMATURE GRANULOCYTES ABSOLUTE 0.03 10/3/uL (0.0-0.11); LYMPHOCYTES 12.9 %; MANUAL DIFF NO %; MEAN CORPUS HGB CONC 32.2 g/dL (32.0-36.0); MEAN CORPUSCULAR HEMOGLOB 29.7 pg (26.0-34.0); MEAN CORPUSCULAR VOLUME 92.3 fL (80-100); MEAN PLATELET VOLUME 9.5 fL (9.2-13.0); MONOCYTES 12.1 %; MONOCYTES ABSOLUTE 1.12 10/3/uL (0.21-1.20); NEUTROPHILS 72.3 %; NEUTROPHILS ABSOLUTE 6.69 10/3/uL (2.02-8.40); PLATELET COUNT 347 10/3/uL (150-400); RBC DISTRIBUTION WIDTH 16.5 % (12.0-16.0); RED CELL COUNT 2.86 10/6/uL (4.0-5.6); WHITE BLOOD CELLS 9.3 10/3/uL (4.5-10.5)
[2016-07-26 06:10] LABS: INTERNATIONAL NORMAL RATI 2.6 UNITS (-)
[2016-07-26 06:11] LABS: PROTIME (NOT ORD) 27.3 SEC (12.0-14.5)
[2016-07-26 06:15] LABS: ALBUMIN 2.7 G/DL (3.5-5.0); CALCIUM, SERUM 8.4 MG/DL (8.5-10.4); CHLORIDE, SERUM 106 MMOL/L (96-112); CO2 (CARBON DIOXIDE) 22 MMOL/L (24-34); GFR AFRICAN AMERICAN 10 ML/MIN (>=60); GFR NON AFRICAN AMERICAN 9 ML/MIN (>=60); GLUCOSE, SERUM 96 MG/DL (60-99); PHOSPHORUS, SERUM 5.2 MG/DL (2.5-4.5); POTASSIUM, SERUM 4.7 MMOL/L (3.5-5.3); SODIUM, SERUM 141 MMOL/L (135-148)
[2016-07-26 06:17] LABS: BUN (BLOOD UREA NITROGEN) 56 MG/DL (6-23); CREATININE 4.74 MG/DL (0.55-1.02)
[2016-07-27 04:24] LABS: BASOPHILS 0.3 %; BASOPHILS ABSOLUTE 0.03 10/3/uL (0.0-0.16); EOSINOPHILS ABSOLUTE 0.09 10/3/uL (0.0-0.53); HEMATOCRIT 26.8 % (36.0-48.0); HEMOGLOBIN 8.6 g/dL (12.0-16.0); IMMATURE GRANULOCYTES 0.3 %; IMMATURE GRANULOCYTES ABSOLUTE 0.03 10/3/uL (0.0-0.11); LYMPHOCYTES ABSOLUTE 0.97 10/3/uL (0.67-4.30); MANUAL DIFF NO %; MEAN CORPUS HGB CONC 32.1 g/dL (32.0-36.0); MEAN CORPUSCULAR HEMOGLOB 29.4 pg (26.0-34.0); MEAN CORPUSCULAR VOLUME 91.5 fL (80-100); MEAN PLATELET VOLUME 9.5 fL (9.2-13.0); MONOCYTES 12.4 %; NEUTROPHILS ABSOLUTE 6.63 10/3/uL (2.02-8.40); PLATELET COUNT 377 10/3/uL (150-400); RBC DISTRIBUTION WIDTH 16.3 % (12.0-16.0); RED CELL COUNT 2.93 10/6/uL (4.0-5.6); WHITE BLOOD CELLS 8.9 10/3/uL (4.5-10.5)
[2016-07-27 04:40] LABS: INTERNATIONAL NORMAL RATI 2.5 UNITS (-); PARTIAL THROMBO TIME 41.1 SEC (22.5-37.2); PROTIME (NOT ORD) 26.7 SEC (12.0-14.5)
[2016-07-27 04:45] LABS: ALBUMIN 2.5 G/DL (3.5-5.0); CALCIUM, SERUM 8.3 MG/DL (8.5-10.4); CHLORIDE, SERUM 105 MMOL/L (96-112); CO2 (CARBON DIOXIDE) 22 MMOL/L (24-34); GLUCOSE, SERUM 108 MG/DL (60-99); POTASSIUM, SERUM 4.9 MMOL/L (3.5-5.3); SODIUM, SERUM 143 MMOL/L (135-148)
[2016-07-27 04:48] LABS: BUN (BLOOD UREA NITROGEN) 70 MG/DL (6-23); CREATININE 5.39 MG/DL (0.55-1.02); GFR AFRICAN AMERICAN 9 ML/MIN (>=60); GFR NON AFRICAN AMERICAN 7 ML/MIN (>=60); PHOSPHORUS, SERUM 6.6 MG/DL (2.5-4.5)
[2016-07-28 08:51] LABS: BASOPHILS 0.5 %; BASOPHILS ABSOLUTE 0.04 10/3/uL (0.0-0.16); EOSINOPHILS 2.1 %; EOSINOPHILS ABSOLUTE 0.19 10/3/uL (0.0-0.53); HEMATOCRIT 27.1 % (36.0-48.0); HEMOGLOBIN 8.7 g/dL (12.0-16.0); IMMATURE GRANULOCYTES 0.2 %; IMMATURE GRANULOCYTES ABSOLUTE 0.02 10/3/uL (0.0-0.11); LYMPHOCYTES 10.5 %; LYMPHOCYTES ABSOLUTE 0.93 10/3/uL (0.67-4.30); MEAN CORPUS HGB CONC 32.1 g/dL (32.0-36.0); MEAN CORPUSCULAR HEMOGLOB 29.1 pg (26.0-34.0); MEAN CORPUSCULAR VOLUME 90.6 fL (80-100); MONOCYTES 13.4 %; MONOCYTES ABSOLUTE 1.19 10/3/uL (0.21-1.20); NEUTROPHILS 73.3 %; NEUTROPHILS ABSOLUTE 6.49 10/3/uL (2.02-8.40); PLATELET COUNT 422 10/3/uL (150-400); RBC DISTRIBUTION WIDTH 16.5 % (12.0-16.0); RED CELL COUNT 2.99 10/6/uL (4.0-5.6); WHITE BLOOD CELLS 8.9 10/3/uL (4.5-10.5)
[2016-07-28 08:57] LABS: MANUAL DIFF NO %
[2016-07-28 09:10] LABS: ALBUMIN 2.4 G/DL (3.5-5.0); BUN (BLOOD UREA NITROGEN) 85 MG/DL (6-23); CALCIUM, SERUM 8.4 MG/DL (8.5-10.4); CHLORIDE, SERUM 106 MMOL/L (96-112); CO2 (CARBON DIOXIDE) 22 MMOL/L (24-34); CREATININE 6.42 MG/DL (0.55-1.02); GFR AFRICAN AMERICAN 7 ML/MIN (>=60); GFR NON AFRICAN AMERICAN 6 ML/MIN (>=60); GLUCOSE, SERUM 94 MG/DL (60-99); SODIUM, SERUM 142 MMOL/L (135-148)
[2016-07-28 09:37] LABS: INTERNATIONAL NORMAL RATI 2.4 UNITS (-); PARTIAL THROMBO TIME 41.7 SEC (22.5-37.2)
[2016-07-28 23:01] LABS: CPK 18 U/L (0-200)
[2016-07-28 23:02] LABS: CK-MB 3.2 NG/ML
[2016-07-28 23:04] LABS: TROPONIN I 0.25 NG/ML (<0.05)
[2016-07-29 05:46] LABS: BASOPHILS 0.7 %; BASOPHILS ABSOLUTE 0.05 10/3/uL (0.0-0.16); EOSINOPHILS 2.5 %; EOSINOPHILS ABSOLUTE 0.19 10/3/uL (0.0-0.53); HEMOGLOBIN 7.7 g/dL (12.0-16.0); IMMATURE GRANULOCYTES 0.4 %; IMMATURE GRANULOCYTES ABSOLUTE 0.03 10/3/uL (0.0-0.11); LYMPHOCYTES 12.4 %; LYMPHOCYTES ABSOLUTE 0.95 10/3/uL (0.67-4.30); MEAN CORPUS HGB CONC 32.4 g/dL (32.0-36.0); MEAN CORPUSCULAR HEMOGLOB 29.5 pg (26.0-34.0); MEAN CORPUSCULAR VOLUME 91.2 fL (80-100); MEAN PLATELET VOLUME 9.6 fL (9.2-13.0); MONOCYTES ABSOLUTE 0.99 10/3/uL (0.21-1.20); NEUTROPHILS ABSOLUTE 5.43 10/3/uL (2.02-8.40); PLATELET COUNT 367 10/3/uL (150-400); RBC DISTRIBUTION WIDTH 16.8 % (12.0-16.0); RED CELL COUNT 2.61 10/6/uL (4.0-5.6); WHITE BLOOD CELLS 7.6 10/3/uL (4.5-10.5)
[2016-07-29 05:47] LABS: HEMATOCRIT 23.8 % (36.0-48.0); INTERNATIONAL NORMAL RATI 2.5 UNITS (-); MANUAL DIFF NO %; PROTIME (NOT ORD) 26.9 SEC (12.0-14.5)
[2016-07-29 06:03] LABS: CALCIUM, SERUM 8.5 MG/DL (8.5-10.4); CHLORIDE, SERUM 108 MMOL/L (96-112); CO2 (CARBON DIOXIDE) 21 MMOL/L (24-34); CPK 17 U/L (0-200); SODIUM, SERUM 141 MMOL/L (135-148)
[2016-07-29 06:05] LABS: BUN (BLOOD UREA NITROGEN) 48 MG/DL (6-23); POTASSIUM, SERUM 3.9 MMOL/L (3.5-5.3)
[2016-07-29 06:06] LABS: ALBUMIN 3.2 G/DL (3.5-5.0); CK-MB 2.9 NG/ML; CREATININE 4.21 MG/DL (0.55-1.02); GFR AFRICAN AMERICAN 11 ML/MIN (>=60); GFR NON AFRICAN AMERICAN 10 ML/MIN (>=60); GLUCOSE, SERUM 142 MG/DL (60-99); PHOSPHORUS, SERUM 4.1 MG/DL (2.5-4.5)
[2016-07-30 05:54] LABS: BASOPHILS 0.4 %; BASOPHILS ABSOLUTE 0.03 10/3/uL (0.0-0.16); EOSINOPHILS ABSOLUTE 0.23 10/3/uL (0.0-0.53); HEMATOCRIT 25.2 % (36.0-48.0); IMMATURE GRANULOCYTES 0.5 %; IMMATURE GRANULOCYTES ABSOLUTE 0.04 10/3/uL (0.0-0.11); LYMPHOCYTES 13.6 %; LYMPHOCYTES ABSOLUTE 1.06 10/3/uL (0.67-4.30); MEAN CORPUS HGB CONC 31.7 g/dL (32.0-36.0); MEAN CORPUSCULAR HEMOGLOB 29.3 pg (26.0-34.0); MEAN CORPUSCULAR VOLUME 92.3 fL (80-100); MEAN PLATELET VOLUME 9.9 fL (9.2-13.0); MONOCYTES 12.1 %; MONOCYTES ABSOLUTE 0.94 10/3/uL (0.21-1.20); NEUTROPHILS 70.4 %; NEUTROPHILS ABSOLUTE 5.49 10/3/uL (2.02-8.40); PLATELET COUNT 388 10/3/uL (150-400); RED CELL COUNT 2.73 10/6/uL (4.0-5.6); WHITE BLOOD CELLS 7.8 10/3/uL (4.5-10.5)
[2016-07-30 05:56] LABS: MANUAL DIFF NO %
[2016-07-30 06:00] LABS: INTERNATIONAL NORMAL RATI 2.3 UNITS (-); PROTIME (NOT ORD) 25.4 SEC (12.0-14.5)
[2016-07-30 06:12] LABS: CALCIUM, SERUM 8.8 MG/DL (8.5-10.4); CHLORIDE, SERUM 107 MMOL/L (96-112); CO2 (CARBON DIOXIDE) 21 MMOL/L (24-34); PHOSPHORUS, SERUM 4.9 MG/DL (2.5-4.5); POTASSIUM, SERUM 4.2 MMOL/L (3.5-5.3); SODIUM, SERUM 141 MMOL/L (135-148)
[2016-07-30 06:13] LABS: BUN (BLOOD UREA NITROGEN) 58 MG/DL (6-23); CREATININE 4.92 MG/DL (0.55-1.02); GFR AFRICAN AMERICAN 9 ML/MIN (>=60); GFR NON AFRICAN AMERICAN 8 ML/MIN (>=60); GLUCOSE, SERUM 94 MG/DL (60-99)
[2016-07-31 07:57] LABS: BASOPHILS 0.7 %; BASOPHILS ABSOLUTE 0.05 10/3/uL (0.0-0.16); EOSINOPHILS 3.6 %; EOSINOPHILS ABSOLUTE 0.27 10/3/uL (0.0-0.53); HEMATOCRIT 27.1 % (36.0-48.0); HEMOGLOBIN 8.7 g/dL (12.0-16.0); IMMATURE GRANULOCYTES 0.4 %; IMMATURE GRANULOCYTES ABSOLUTE 0.03 10/3/uL (0.0-0.11); LYMPHOCYTES 17.2 %; LYMPHOCYTES ABSOLUTE 1.27 10/3/uL (0.67-4.30); MEAN CORPUS HGB CONC 32.1 g/dL (32.0-36.0); MEAN CORPUSCULAR HEMOGLOB 29.7 pg (26.0-34.0); MEAN CORPUSCULAR VOLUME 92.5 fL (80-100); MEAN PLATELET VOLUME 9.6 fL (9.2-13.0); MONOCYTES 9.1 %; MONOCYTES ABSOLUTE 0.67 10/3/uL (0.21-1.20); NEUTROPHILS ABSOLUTE 5.11 10/3/uL (2.02-8.40); PLATELET COUNT 448 10/3/uL (150-400); RBC DISTRIBUTION WIDTH 16.7 % (12.0-16.0); RED CELL COUNT 2.93 10/6/uL (4.0-5.6); WHITE BLOOD CELLS 7.4 10/3/uL (4.5-10.5)
[2016-07-31 08:02] LABS: MANUAL DIFF NO %
[2016-07-31 08:08] LABS: INTERNATIONAL NORMAL RATI 3.5 UNITS (-)
[2016-07-31 08:11] LABS: ALBUMIN 2.8 G/DL (3.5-5.0); CALCIUM, SERUM 8.6 MG/DL (8.5-10.4); CHLORIDE, SERUM 108 MMOL/L (96-112); CO2 (CARBON DIOXIDE) 23 MMOL/L (24-34); GLUCOSE, SERUM 96 MG/DL (60-99); POTASSIUM, SERUM 4.1 MMOL/L (3.5-5.3); SODIUM, SERUM 144 MMOL/L (135-148)
[2016-07-31 08:12] LABS: BUN (BLOOD UREA NITROGEN) 41 MG/DL (6-23); CREATININE 4.07 MG/DL (0.55-1.02); GFR AFRICAN AMERICAN 12 ML/MIN (>=60); GFR NON AFRICAN AMERICAN 10 ML/MIN (>=60); PHOSPHORUS, SERUM 3.7 MG/DL (2.5-4.5)
[2016-07-31 08:14] LABS: PROTIME (NOT ORD) 34.9 SEC (12.0-14.5)
[2016-08-01 13:48] LABS: BASOPHILS 0.6 %; BASOPHILS ABSOLUTE 0.04 10/3/uL (0.0-0.16); EOSINOPHILS 2.9 %; EOSINOPHILS ABSOLUTE 0.21 10/3/uL (0.0-0.53); HEMATOCRIT 26.5 % (36.0-48.0); HEMOGLOBIN 8.6 g/dL (12.0-16.0); IMMATURE GRANULOCYTES 0.3 %; IMMATURE GRANULOCYTES ABSOLUTE 0.02 10/3/uL (0.0-0.11); LYMPHOCYTES 15.9 %; LYMPHOCYTES ABSOLUTE 1.15 10/3/uL (0.67-4.30); MEAN CORPUS HGB CONC 32.5 g/dL (32.0-36.0); MEAN CORPUSCULAR HEMOGLOB 29.7 pg (26.0-34.0); MEAN CORPUSCULAR VOLUME 91.4 fL (80-100); MEAN PLATELET VOLUME 9.6 fL (9.2-13.0); MONOCYTES 12.8 %; MONOCYTES ABSOLUTE 0.93 10/3/uL (0.21-1.20); NEUTROPHILS 67.5 %; PLATELET COUNT 440 10/3/uL (150-400); RBC DISTRIBUTION WIDTH 16.8 % (12.0-16.0); WHITE BLOOD CELLS 7.3 10/3/uL (4.5-10.5)
[2016-08-01 13:49] LABS: MANUAL DIFF NO %
[2016-08-01 14:01] LABS: ALBUMIN 2.6 G/DL (3.5-5.0); BUN (BLOOD UREA NITROGEN) 54 MG/DL (6-23); CALCIUM, SERUM 8.5 MG/DL (8.5-10.4); CHLORIDE, SERUM 109 MMOL/L (96-112); CO2 (CARBON DIOXIDE) 25 MMOL/L (24-34); CREATININE 5.12 MG/DL (0.55-1.02); GFR AFRICAN AMERICAN 9 ML/MIN (>=60); GFR NON AFRICAN AMERICAN 8 ML/MIN (>=60); GLUCOSE, SERUM 130 MG/DL (60-99); PHOSPHORUS, SERUM 3.8 MG/DL (2.5-4.5); POTASSIUM, SERUM 3.8 MMOL/L (3.5-5.3); SODIUM, SERUM 144 MMOL/L (135-148)
[2016-08-02 10:22] LABS: INTERNATIONAL NORMAL RATI 2.5 UNITS (-)
[2016-08-02 10:23] LABS: PROTIME (NOT ORD) 26.7 SEC (12.0-14.5)
[2016-08-02 10:29] LABS: BUN (BLOOD UREA NITROGEN) 34 MG/DL (6-23); CALCIUM, SERUM 8.6 MG/DL (8.5-10.4); CHLORIDE, SERUM 107 MMOL/L (96-112); CO2 (CARBON DIOXIDE) 23 MMOL/L (24-34); CREATININE 3.78 MG/DL (0.55-1.02); GFR AFRICAN AMERICAN 13 ML/MIN (>=60); GFR NON AFRICAN AMERICAN 11 ML/MIN (>=60); GLUCOSE, SERUM 117 MG/DL (60-99); POTASSIUM, SERUM 3.8 MMOL/L (3.5-5.3); SODIUM, SERUM 141 MMOL/L (135-148)
[2016-08-02 10:35] LABS: BASOPHILS 1.3 %; EOSINOPHILS 3.1 %; EOSINOPHILS ABSOLUTE 0.24 10/3/uL (0.0-0.53); HEMATOCRIT 28.7 % (36.0-48.0); HEMOGLOBIN 9.2 g/dL (12.0-16.0); IMMATURE GRANULOCYTES 0.6 %; IMMATURE GRANULOCYTES ABSOLUTE 0.05 10/3/uL (0.0-0.11); LYMPHOCYTES 19.7 %; LYMPHOCYTES ABSOLUTE 1.53 10/3/uL (0.67-4.30); MEAN CORPUS HGB CONC 32.1 g/dL (32.0-36.0); MEAN CORPUSCULAR HEMOGLOB 29.6 pg (26.0-34.0); MEAN CORPUSCULAR VOLUME 92.3 fL (80-100); MEAN PLATELET VOLUME 9.5 fL (9.2-13.0); MONOCYTES 14.5 %; MONOCYTES ABSOLUTE 1.12 10/3/uL (0.21-1.20); NEUTROPHILS 60.8 %; NEUTROPHILS ABSOLUTE 4.71 10/3/uL (2.02-8.40); PLATELET COUNT 459 10/3/uL (150-400); RBC DISTRIBUTION WIDTH 16.9 % (12.0-16.0); RED CELL COUNT 3.11 10/6/uL (4.0-5.6); WHITE BLOOD CELLS 7.8 10/3/uL (4.5-10.5)
[2016-08-02 10:38] LABS: MANUAL DIFF NO %
[2016-08-02 11:20] LABS: PLATELET ESTIMATE SLT INC (ADEQUATE)
[2016-08-02 11:21] LABS: ACANTHOCYTES OCC (0-2/OIF); ELLIPTOCYTES 1+ (3-10/OIF) (0-2/OIF); HELMET CELLS OCC (0-2/OIF); POLYCHROMASIA 1+ (2-5/OIF) (0-1/OIF); SPHEROCYTES OCC (0-2/OIF); TEARDROP SHAPED RBCS OCC (0-2/OIF)
[2016-08-03 10:22] LABS: BASOPHILS ABSOLUTE 0.07 10/3/uL (0.0-0.16); EOSINOPHILS 3.1 %; EOSINOPHILS ABSOLUTE 0.23 10/3/uL (0.0-0.53); HEMATOCRIT 26.8 % (36.0-48.0); HEMOGLOBIN 8.7 g/dL (12.0-16.0); IMMATURE GRANULOCYTES 0.5 %; IMMATURE GRANULOCYTES ABSOLUTE 0.04 10/3/uL (0.0-0.11); LYMPHOCYTES ABSOLUTE 1.62 10/3/uL (0.67-4.30); MEAN CORPUS HGB CONC 32.5 g/dL (32.0-36.0); MEAN CORPUSCULAR HEMOGLOB 29.9 pg (26.0-34.0); MEAN CORPUSCULAR VOLUME 92.1 fL (80-100); MEAN PLATELET VOLUME 9.6 fL (9.2-13.0); MONOCYTES 14.7 %; MONOCYTES ABSOLUTE 1.08 10/3/uL (0.21-1.20); NEUTROPHILS 58.7 %; NEUTROPHILS ABSOLUTE 4.31 10/3/uL (2.02-8.40); PLATELET COUNT 439 10/3/uL (150-400); RBC DISTRIBUTION WIDTH 16.8 % (12.0-16.0); RED CELL COUNT 2.91 10/6/uL (4.0-5.6); WHITE BLOOD CELLS 7.4 10/3/uL (4.5-10.5)
[2016-08-03 10:26] LABS: MANUAL DIFF NO %
[2016-08-03 10:31] LABS: INTERNATIONAL NORMAL RATI 2.2 UNITS (-); PROTIME (NOT ORD) 24.5 SEC (12.0-14.5)
[2016-08-03 10:36] LABS: ALBUMIN 2.6 G/DL (3.5-5.0); BUN (BLOOD UREA NITROGEN) 40 MG/DL (6-23); CALCIUM, SERUM 8.6 MG/DL (8.5-10.4); CHLORIDE, SERUM 107 MMOL/L (96-112); CO2 (CARBON DIOXIDE) 25 MMOL/L (24-34); CREATININE 4.61 MG/DL (0.55-1.02); GFR AFRICAN AMERICAN 10 ML/MIN (>=60); GFR NON AFRICAN AMERICAN 9 ML/MIN (>=60); GLUCOSE, SERUM 104 MG/DL (60-99); PHOSPHORUS, SERUM 3.2 MG/DL (2.5-4.5); POTASSIUM, SERUM 3.9 MMOL/L (3.5-5.3); SODIUM, SERUM 142 MMOL/L (135-148)
[2016-08-03 16:04] LABS: ALBUMIN 2.6 G/DL (3.5-5.0); ALKALINE PHOSPHATASE 65 U/L (45-117); SGOT(AST) 11 U/L (5-40); TOTAL BILIRUBIN 0.4 MG/DL (0-1.2); TOTAL PROTEIN 6.8 G/DL (6.0-8.5)
[2016-08-03 16:05] LABS: DIRECT BILIRUBIN 0.1 MG/DL (0.0-0.4); INDIRECT BILIRUBIN(NOT ORDER) 0.3 MG/DL (0.1-0.9); SGPT(ALT) < 6 U/L (5-65)
[2016-08-03 16:32] LABS: BE (BASE EXCESS) -1.5 MEQ/L (0 +/- 2.5); CARBOXYHEMOGLOBIN 0.3 % (0-3); HCO3 (ACTUAL BICARBONATE) 23.1 MEQ/L (23-27); HEMOBLOGIN CONTENT 9.6 G/DL (12-16); INSTRUMENT SERIAL # 35151; METHEMOGLOBIN 0.7 % (0-3); O2 CONTENT 12.8 VOL% (18-24); OPERATOR ID 32214; PCO2 (CO2 TENSION) 38 MMHG (35-45); PO2 (O2 TENSION) 78 MMHG (79-93); SAMPLE Arterial
[2016-08-03 17:19] LABS: BASOPHILS 1.2 %; EOSINOPHILS 3.6 %; HEMOGLOBIN 9.4 g/dL (12.0-16.0); IMMATURE GRANULOCYTES 0.5 %; IMMATURE GRANULOCYTES ABSOLUTE 0.04 10/3/uL (0.0-0.11); LYMPHOCYTES 21.1 %; LYMPHOCYTES ABSOLUTE 1.77 10/3/uL (0.67-4.30); MEAN CORPUS HGB CONC 31.8 g/dL (32.0-36.0); MEAN CORPUSCULAR VOLUME 91.4 fL (80-100); MEAN PLATELET VOLUME 9.7 fL (9.2-13.0); MONOCYTES 15.9 %; MONOCYTES ABSOLUTE 1.33 10/3/uL (0.21-1.20); NEUTROPHILS 57.7 %; NEUTROPHILS ABSOLUTE 4.84 10/3/uL (2.02-8.40); PLATELET COUNT 446 10/3/uL (150-400); RBC DISTRIBUTION WIDTH 16.8 % (12.0-16.0); RED CELL COUNT 3.24 10/6/uL (4.0-5.6); WHITE BLOOD CELLS 8.4 10/3/uL (4.5-10.5)
[2016-08-03 17:20] LABS: HEMATOCRIT 29.6 % (36.0-48.0)
[2016-08-03 17:39] LABS: BUN (BLOOD UREA NITROGEN) 42 MG/DL (6-23); CALCIUM, SERUM 8.5 MG/DL (8.5-10.4); CHLORIDE, SERUM 107 MMOL/L (96-112); CO2 (CARBON DIOXIDE) 22 MMOL/L (24-34); CREATININE 4.83 MG/DL (0.55-1.02); GFR AFRICAN AMERICAN 10 ML/MIN (>=60); GFR NON AFRICAN AMERICAN 8 ML/MIN (>=60); GLUCOSE, SERUM 102 MG/DL (60-99); POTASSIUM, SERUM 4.4 MMOL/L (3.5-5.3); SODIUM, SERUM 142 MMOL/L (135-148)
[2016-08-03 18:24] LABS: MANUAL DIFF NO %
[2016-08-04 06:23] LABS: BASOPHILS 1.7 %; BASOPHILS ABSOLUTE 0.13 10/3/uL (0.0-0.16); EOSINOPHILS 3.8 %; EOSINOPHILS ABSOLUTE 0.29 10/3/uL (0.0-0.53); HEMATOCRIT 26.8 % (36.0-48.0); HEMOGLOBIN 8.5 g/dL (12.0-16.0); IMMATURE GRANULOCYTES 0.3 %; IMMATURE GRANULOCYTES ABSOLUTE 0.02 10/3/uL (0.0-0.11); LYMPHOCYTES ABSOLUTE 1.99 10/3/uL (0.67-4.30); MEAN CORPUS HGB CONC 31.7 g/dL (32.0-36.0); MEAN CORPUSCULAR HEMOGLOB 29.3 pg (26.0-34.0); MEAN CORPUSCULAR VOLUME 92.4 fL (80-100); MEAN PLATELET VOLUME 9.4 fL (9.2-13.0); MONOCYTES 12.3 %; MONOCYTES ABSOLUTE 0.94 10/3/uL (0.21-1.20); NEUTROPHILS 55.9 %; NEUTROPHILS ABSOLUTE 4.28 10/3/uL (2.02-8.40); PLATELET COUNT 416 10/3/uL (150-400); RBC DISTRIBUTION WIDTH 16.9 % (12.0-16.0); WHITE BLOOD CELLS 7.7 10/3/uL (4.5-10.5)
[2016-08-04 06:24] LABS: MANUAL DIFF NO %
[2016-08-04 06:25] LABS: PARTIAL THROMBO TIME 37.4 SEC (22.5-37.2); PROTIME (NOT ORD) 22.7 SEC (12.0-14.5)
[2016-08-04 06:30] LABS: CALCIUM, SERUM 8.5 MG/DL (8.5-10.4); CHLORIDE, SERUM 106 MMOL/L (96-112); CO2 (CARBON DIOXIDE) 22 MMOL/L (24-34); CREATININE 5.24 MG/DL (0.55-1.02); GFR AFRICAN AMERICAN 9 ML/MIN (>=60); GFR NON AFRICAN AMERICAN 8 ML/MIN (>=60); GLUCOSE, SERUM 90 MG/DL (60-99); POTASSIUM, SERUM 4.1 MMOL/L (3.5-5.3); SODIUM, SERUM 142 MMOL/L (135-148)
[2016-08-04 06:31] LABS: CALCIUM, SERUM 8.7 MG/DL (8.5-10.4); CHLORIDE, SERUM 105 MMOL/L (96-112); CO2 (CARBON DIOXIDE) 22 MMOL/L (24-34); CREATININE 5.21 MG/DL (0.55-1.02); GFR AFRICAN AMERICAN 9 ML/MIN (>=60); GFR NON AFRICAN AMERICAN 8 ML/MIN (>=60); GLUCOSE, SERUM 91 MG/DL (60-99); PFA (COL/EPI) 120 SEC (72-180); POTASSIUM, SERUM 4.1 MMOL/L (3.5-5.3); SODIUM, SERUM 143 MMOL/L (135-148)
[2016-08-04 06:32] LABS: BUN (BLOOD UREA NITROGEN) 46 MG/DL (6-23); BUN (BLOOD UREA NITROGEN) 47 MG/DL (6-23)
[2016-08-04 06:38] LABS: BASOPHILS 1.4 %; EOSINOPHILS 3.4 %; EOSINOPHILS ABSOLUTE 0.25 10/3/uL (0.0-0.53); HEMATOCRIT 26.3 % (36.0-48.0); HEMOGLOBIN 8.4 g/dL (12.0-16.0); IMMATURE GRANULOCYTES 0.3 %; IMMATURE GRANULOCYTES ABSOLUTE 0.02 10/3/uL (0.0-0.11); LYMPHOCYTES 27.5 %; LYMPHOCYTES ABSOLUTE 2.01 10/3/uL (0.67-4.30); MEAN CORPUS HGB CONC 31.9 g/dL (32.0-36.0); MEAN CORPUSCULAR HEMOGLOB 29.1 pg (26.0-34.0); MEAN PLATELET VOLUME 9.6 fL (9.2-13.0); MONOCYTES 12.2 %; MONOCYTES ABSOLUTE 0.89 10/3/uL (0.21-1.20); NEUTROPHILS 55.2 %; NEUTROPHILS ABSOLUTE 4.05 10/3/uL (2.02-8.40); PLATELET COUNT 426 10/3/uL (150-400); RED CELL COUNT 2.89 10/6/uL (4.0-5.6); WHITE BLOOD CELLS 7.3 10/3/uL (4.5-10.5)
[2016-08-04 06:40] LABS: MANUAL DIFF NO %
[2016-08-04 15:53] LABS: BODY FLUID CHOLESTEROL 59 MG/DL; GLUCOSE BODY FL (NOT ORD) 100 MG/DL; LDH BODY FLUID (NOT ORD) 203 U/L
[2016-08-04 16:32] LABS: BD FL LYMPH (NOT ORD) 36 %; BD FL SOURCE (NOT ORD) PLEURAL; BF BASO (NOT OF) 0 %; BF LARGE MONONUCLEAR 58 %; BODY FLUID EOS (NOT ORD) 0 %; BODY FLUID SEG (NOT ORD) 6 %
[2016-08-04 18:47] LABS: BODY FLUID RBC (NOT ORD) 117407 /MM3
[2016-08-04 18:48] LABS: BF TOTAL CELL CT (NOT ORD 5 /MM3
[2016-08-05 06:42] LABS: BASOPHILS ABSOLUTE 0.08 10/3/uL (0.0-0.16); EOSINOPHILS ABSOLUTE 0.23 10/3/uL (0.0-0.53); HEMATOCRIT 26.8 % (36.0-48.0); HEMOGLOBIN 8.4 g/dL (12.0-16.0); IMMATURE GRANULOCYTES 0.4 %; IMMATURE GRANULOCYTES ABSOLUTE 0.03 10/3/uL (0.0-0.11); LYMPHOCYTES 23.7 %; LYMPHOCYTES ABSOLUTE 1.84 10/3/uL (0.67-4.30); MEAN CORPUS HGB CONC 31.3 g/dL (32.0-36.0); MEAN CORPUSCULAR HEMOGLOB 29.1 pg (26.0-34.0); MEAN CORPUSCULAR VOLUME 92.7 fL (80-100); MEAN PLATELET VOLUME 9.6 fL (9.2-13.0); MONOCYTES 10.6 %; MONOCYTES ABSOLUTE 0.82 10/3/uL (0.21-1.20); NEUTROPHILS 61.3 %; NEUTROPHILS ABSOLUTE 4.77 10/3/uL (2.02-8.40); PLATELET COUNT 368 10/3/uL (150-400); RBC DISTRIBUTION WIDTH 16.7 % (12.0-16.0); RED CELL COUNT 2.89 10/6/uL (4.0-5.6); WHITE BLOOD CELLS 7.8 10/3/uL (4.5-10.5)
[2016-08-05 06:43] LABS: MANUAL DIFF NO %
[2016-08-05 06:47] LABS: PROTIME (NOT ORD) 22.8 SEC (12.0-14.5)
[2016-08-05 06:55] LABS: CALCIUM, SERUM 8.6 MG/DL (8.5-10.4); CHLORIDE, SERUM 109 MMOL/L (96-112); CO2 (CARBON DIOXIDE) 23 MMOL/L (24-34); GLUCOSE, SERUM 98 MG/DL (60-99); POTASSIUM, SERUM 4.1 MMOL/L (3.5-5.3); SODIUM, SERUM 144 MMOL/L (135-148)
[2016-08-05 06:57] LABS: BUN (BLOOD UREA NITROGEN) 32 MG/DL (6-23); CREATININE 4.02 MG/DL (0.55-1.02); GFR AFRICAN AMERICAN 12 ML/MIN (>=60); GFR NON AFRICAN AMERICAN 10 ML/MIN (>=60)
[2016-08-06 08:20] LABS: BASOPHILS 1.3 %; EOSINOPHILS ABSOLUTE 0.23 10/3/uL (0.0-0.53); HEMATOCRIT 25.3 % (36.0-48.0); HEMOGLOBIN 8.1 g/dL (12.0-16.0); IMMATURE GRANULOCYTES 0.3 %; IMMATURE GRANULOCYTES ABSOLUTE 0.02 10/3/uL (0.0-0.11); LYMPHOCYTES 24.7 %; LYMPHOCYTES ABSOLUTE 1.91 10/3/uL (0.67-4.30); MEAN CORPUSCULAR HEMOGLOB 29.3 pg (26.0-34.0); MEAN CORPUSCULAR VOLUME 91.7 fL (80-100); MEAN PLATELET VOLUME 9.6 fL (9.2-13.0); MONOCYTES 11.8 %; MONOCYTES ABSOLUTE 0.91 10/3/uL (0.21-1.20); NEUTROPHILS 58.9 %; NEUTROPHILS ABSOLUTE 4.56 10/3/uL (2.02-8.40); PLATELET COUNT 342 10/3/uL (150-400); RBC DISTRIBUTION WIDTH 17.2 % (12.0-16.0); RED CELL COUNT 2.76 10/6/uL (4.0-5.6); WHITE BLOOD CELLS 7.7 10/3/uL (4.5-10.5)
[2016-08-06 08:21] LABS: MANUAL DIFF NO %
[2016-08-06 08:37] LABS: A/G RATIO 0.8 (0.7-1.9); ALBUMIN 2.9 G/DL (3.5-5.0); ALKALINE PHOSPHATASE 62 U/L (45-117); BUN (BLOOD UREA NITROGEN) 43 MG/DL (6-23); CALCIUM, SERUM 8.4 MG/DL (8.5-10.4); CHLORIDE, SERUM 108 MMOL/L (96-112); CO2 (CARBON DIOXIDE) 25 MMOL/L (24-34); CREATININE 5.04 MG/DL (0.55-1.02); GFR AFRICAN AMERICAN 9 ML/MIN (>=60); GFR NON AFRICAN AMERICAN 8 ML/MIN (>=60); GLOBULIN 3.8 G/DL (2.5-4.1); GLUCOSE, SERUM 68 MG/DL (60-99); PHOSPHORUS, SERUM 4.2 MG/DL (2.5-4.5); POTASSIUM, SERUM 4.4 MMOL/L (3.5-5.3); SGOT(AST) 13 U/L (5-40); SGPT(ALT) < 6 U/L (5-65); SODIUM, SERUM 145 MMOL/L (135-148); TOTAL BILIRUBIN 0.5 MG/DL (0-1.2); TOTAL PROTEIN 6.7 G/DL (6.0-8.5)
[2016-08-06 09:02] LABS: INTERNATIONAL NORMAL RATI 1.8 UNITS (-); PROTIME (NOT ORD) 20.5 SEC (12.0-14.5)
[2016-08-07 07:01] LABS: BASOPHILS 1.2 %; EOSINOPHILS ABSOLUTE 0.17 10/3/uL (0.0-0.53); HEMATOCRIT 28.8 % (36.0-48.0); HEMOGLOBIN 9.1 g/dL (12.0-16.0); IMMATURE GRANULOCYTES 0.6 %; IMMATURE GRANULOCYTES ABSOLUTE 0.05 10/3/uL (0.0-0.11); INTERNATIONAL NORMAL RATI 1.8 UNITS (-); LYMPHOCYTES ABSOLUTE 1.93 10/3/uL (0.67-4.30); MANUAL DIFF NO %; MEAN CORPUS HGB CONC 31.6 g/dL (32.0-36.0); MEAN CORPUSCULAR HEMOGLOB 29.4 pg (26.0-34.0); MEAN CORPUSCULAR VOLUME 93.2 fL (80-100); MEAN PLATELET VOLUME 9.8 fL (9.2-13.0); MONOCYTES 10.6 %; MONOCYTES ABSOLUTE 0.89 10/3/uL (0.21-1.20); NEUTROPHILS 62.6 %; NEUTROPHILS ABSOLUTE 5.24 10/3/uL (2.02-8.40); PLATELET COUNT 374 10/3/uL (150-400); RBC DISTRIBUTION WIDTH 16.9 % (12.0-16.0); RED CELL COUNT 3.09 10/6/uL (4.0-5.6); WHITE BLOOD CELLS 8.4 10/3/uL (4.5-10.5)
[2016-08-07 07:13] LABS: A/G RATIO 0.6 (0.7-1.9); ALBUMIN 2.8 G/DL (3.5-5.0); ALKALINE PHOSPHATASE 66 U/L (45-117); CALCIUM, SERUM 8.6 MG/DL (8.5-10.4); CHLORIDE, SERUM 106 MMOL/L (96-112); CO2 (CARBON DIOXIDE) 23 MMOL/L (24-34); POTASSIUM, SERUM 4.1 MMOL/L (3.5-5.3); SGOT(AST) 14 U/L (5-40); SGPT(ALT) 9 U/L (5-65); SODIUM, SERUM 143 MMOL/L (135-148); TOTAL BILIRUBIN 0.5 MG/DL (0-1.2); TOTAL PROTEIN 7.5 G/DL (6.0-8.5)
[2016-08-07 07:15] LABS: BUN (BLOOD UREA NITROGEN) 28 MG/DL (6-23); CREATININE 3.79 MG/DL (0.55-1.02); GFR AFRICAN AMERICAN 13 ML/MIN (>=60); GFR NON AFRICAN AMERICAN 11 ML/MIN (>=60); GLOBULIN 4.7 G/DL (2.5-4.1); GLUCOSE, SERUM 86 MG/DL (60-99)
[2016-12-03] MEDS ORDERED: PROTONIX PO (16:32)
[2016-12-03] MEDS ORDERED: ELIQUIS 5 MG TAB5 MG PO (16:32)
[2016-12-03] MEDS ORDERED: FOLIC PO (16:33)
[2016-12-03] MEDS ORDERED: MARI5 PO (16:33)
[2016-12-03] MEDS ORDERED: CORDARONE PO (16:33)
[2016-12-03] MEDS ORDERED: MIRALAX POWDER1 PKT PO (16:34)
[2016-12-03] MEDS ORDERED: MYTAB GAS80 MG PO (16:34)
[2016-12-03] MEDS ORDERED: FERROUS SULF325 M1 PO (16:34)
[2016-12-03] MEDS ORDERED: COREG3 PO (16:40)
[2016-12-03] MEDS ORDERED: RENA-VITE PO (16:41)
[2016-12-03] MEDS ORDERED: MELA3 PO (16:42)
[2016-12-03] MEDS ORDERED: SENTAB PO (16:42)
[2016-12-03] MEDS ORDERED: BROVANA15 MCG INH (16:43)
[2016-12-03] MEDS ORDERED: ZOL50 PO (16:43)
[2016-12-03] MEDS ORDERED: XANAX1 MG PO (16:44)
[2016-12-03] MEDS ORDERED: PULRESP.5 INH (16:44)
[2016-12-03] MEDS ORDERED: ACETSUP650 PR (16:45)
[2016-12-03] MEDS ORDERED: BISR PR (16:46)
[2016-12-03] MEDS ORDERED: BIST PO (16:47)
[2016-12-03] MEDS ORDERED: T PO (16:47)
[2016-12-03] MEDS ORDERED: FLEETS ENEMA PR (16:47)
[2016-12-03] MEDS ORDERED: ZOFRAN4 PO (16:48)
[2016-12-03] MEDS ORDERED: NITROSTAT0.4 MG SL (16:48)
[2016-12-22] MEDS ORDERED: ELIQUIS 5 MG TAB5 MG PO (08:40)
[2016-12-22] MEDS ORDERED: CORDARONE PO (08:41)
[2016-12-22] MEDS ORDERED: FERROUS SULF325 M1 PO (08:41)
[2016-12-22] MEDS ORDERED: FOLIC PO (08:41)
[2016-12-22] MEDS ORDERED: ZOL50 PO (08:41)
[2016-12-22] MEDS ORDERED: MIRALAX POWDER1 PKT PO (08:42)
[2016-12-22] MEDS ORDERED: MYTAB GAS80 MG PO (08:42)
[2016-12-22] MEDS ORDERED: PROTONIX PO (08:42)
[2016-12-22] MEDS ORDERED: SENTAB PO (08:43)
[2016-12-22] MEDS ORDERED: COREG3 PO (08:43)
[2016-12-22] MEDS ORDERED: RENA-VITE PO (08:44)
[2016-12-22] MEDS ORDERED: MARI5 PO (08:44)
[2016-12-22] MEDS ORDERED: BROVANA15 MCG INH (08:45)
[2016-12-22] MEDS ORDERED: PULRESP.5 INH (08:45)
[2016-12-22] MEDS ORDERED: NUEDEXTA 20-101 EACH PO (08:45)
[2016-12-22] MEDS ORDERED: DUONEB INH (08:47)
[2016-12-22] MEDS ORDERED: BISR PR (08:48)
[2016-12-22] MEDS ORDERED: ACETSUP650 PR (08:48)
[2016-12-22] MEDS ORDERED: [UNRECOGNIZED DRUG - OTHER] PO (08:49)
[2016-12-22] MEDS ORDERED: GUAIFENESI4 PO (08:51)
[2016-12-22] MEDS ORDERED: MOMUD PO (08:52)
[2016-12-22] MEDS ORDERED: NITROSTAT0.4 MG SL (08:54)
[2016-12-22] MEDS ORDERED: BIST PO (08:54)
[2016-12-22] MEDS ORDERED: ZOFRAN4 PO (08:55)
[2016-12-22] MEDS ORDERED: [UNRECOGNIZED DRUG - OTHER] TOP (08:56)
[2016-12-22] MEDS ORDERED: XANAX1 MG PO (08:57)
[2016-12-22] MEDS ORDERED: MELA3 PO (08:57)
[2016-12-22] MEDS ORDERED: PLAVIX PO ×2 (08:58→10:31)
[2016-12-22] MEDS ORDERED: LIPITOR80 MG PO (08:58)
[2016-12-22] MEDS ORDERED: ASAB PO ×2 (08:58→10:31)
[2016-12-22] MEDS ORDERED: NEPHRO PO (08:59)
[2016-12-22] MEDS ORDERED: ACIDOPHILUS PO (08:59)
[2016-12-22] MEDS ORDERED: PRILO PO (08:59)
[2016-12-22] MEDS ORDERED: DULERA 200 MCG/13 GM INH (09:00)
[2017-01-19] MEDS ORDERED: NEPHRO PO (08:53)
[2017-01-19] MEDS ORDERED: BROVANA15 MCG INH (08:56)
[2017-01-19] MEDS ORDERED: BISR PR (09:02)
[2017-01-19] MEDS ORDERED: [UNRECOGNIZED DRUG - OTHER] REP (09:03)
[2017-01-19] MEDS ORDERED: GERI-MOX PO (09:05)
[2017-01-19] MEDS ORDERED: GERI-TUSSIN PO (09:08)
[2017-01-19] MEDS ORDERED: MOMUD PO (09:08)
[2017-01-19] MEDS ORDERED: T PO (09:10)
[2017-01-19] MEDS ORDERED: HUMALOG SC (09:12)
[2017-01-19] MEDS ORDERED: ASAB PO (09:13)
[2017-01-19] MEDS ORDERED: ELIQUIS 5 MG TAB5 MG PO (09:13)
[2017-01-19] MEDS ORDERED: PLAVIX PO (09:14)
[2017-01-19] MEDS ORDERED: PROTONIX20 MG PO (09:17)
[2017-01-19] MEDS ORDERED: MIRAPEX125 PO (09:18)
[2017-01-19] MEDS ORDERED: ACET500CAP PO (09:18)
[2017-01-19] MEDS ORDERED: MULTIPLE VIT PO (09:20)
[2017-01-19] MEDS ORDERED: [UNRECOGNIZED DRUG - OTHER] PO (09:22)
[2017-01-19] MEDS ORDERED: NEPRO PO (09:22)
[2017-01-19] MEDS ORDERED: EPOETIN ALFA IV (09:25)
[2017-01-19] MEDS ORDERED: MED PASS SUPPLEMENT PO (10:10)
[2017-01-23] MEDS ORDERED: NOVOLOG SC (19:10)
[2017-01-23] MEDS ORDERED: PLAVIX PO (19:13)
[2017-01-23] MEDS ORDERED: ELIQUIS 2.5 MG2.5 MG PO (19:13)
[2017-01-23] MEDS ORDERED: MARI5 PO (19:14)
[2017-01-23] MEDS ORDERED: CORDARONE PO (19:15)
[2017-01-23] MEDS ORDERED: FOLIC PO (19:15)
[2017-01-23] MEDS ORDERED: COREG3 PO ×2 (19:16→19:17)
[2017-01-23] MEDS ORDERED: MIRALAX POWDER1 PKT PO (19:16)
[2017-01-23] MEDS ORDERED: NEPHRO PO (19:17)
[2017-01-23] MEDS ORDERED: PRILO PO (19:17)
[2017-01-23] MEDS ORDERED: PROTONIX20 MG PO (19:18)
[2017-01-23] MEDS ORDERED: ACIDOPHILU2 PO (19:18)
[2017-01-23] MEDS ORDERED: ACET500CAP PO (19:19)
[2017-01-23] MEDS ORDERED: DUONEB INH ×2 (19:20→19:26)
[2017-01-23] MEDS ORDERED: BROVANA15 MCG INH (19:20)
[2017-01-23] MEDS ORDERED: PULRESP.5 INH (19:21)
[2017-01-23] MEDS ORDERED: BISR PR (19:23)
[2017-01-23] MEDS ORDERED: ACETSUP650 PR (19:23)
[2017-01-23] MEDS ORDERED: FLEETS ENEMA PR (19:24)
[2017-01-23] MEDS ORDERED: MAALOX PO (19:25)
[2017-01-23] MEDS ORDERED: ROBITUSS23 PO (19:25)
[2017-01-23] MEDS ORDERED: MOMUD PO (19:25)
[2017-01-23] MEDS ORDERED: ZOFRAN4 PO (19:26)
[2017-01-23] MEDS ORDERED: T PO (19:26)
[2017-01-23] MEDS ORDERED: MELA3 PO (19:28)
[2017-01-23] MEDS ORDERED: FERROCITE PO (19:28)
[2017-01-23] MEDS ORDERED: ASAB PO (19:28)
[2017-01-23] MEDS ORDERED: MIRAPEX125 PO (19:29)
[2017-01-23] MEDS ORDERED: LIPITOR80 MG PO (19:29)
[2017-01-23] MEDS ORDERED: ZOL50 PO (19:31)
[2017-02-07] MEDS ORDERED: NORCO1 TA1 PO (21:37)
== END 2016-08-07 22:30 | DRG 246 ==
LOC: CCU 22:10 → IMCU 07-21 22:54 → 2SO 07-22 14:56
PROVIDERS: Hospitalist; Internal Medicine; Internal Medicine Clinical Cardiac Electrophysiology; Internal Medicine Critical Care Medicine; Internal Medicine Nephrology; Internal Medicine Pulmonary Disease; Nurse Practitioner; Registered Nurse
PROC: 5A09457 Assistance with Respiratory Ventilation, 24-96 Consecutive Hours, Continuous Positive Airway Pressure (ICD-10-PCS; 2016-07-04)
PROC: 0W9B3ZZ Drainage of Left Pleural Cavity, Percutaneous Approach (ICD-10-PCS; 2016-07-07)
PROC: 027034Z Dilation of Coronary Artery, One Artery with Drug-eluting Intraluminal Device, Percutaneous Approach (ICD-10-PCS; principal; 2016-07-09)
PROC: 5A1955Z Respiratory Ventilation, Greater than 96 Consecutive Hours (ICD-10-PCS; 2016-07-09)
PROC: 0BH17EZ Insertion of Endotracheal Airway into Trachea, Via Natural or Artificial Opening (ICD-10-PCS; 2016-07-09)
PROC: B2151ZZ Fluoroscopy of Left Heart using Low Osmolar Contrast (ICD-10-PCS; 2016-07-09)
PROC: B2111ZZ Fluoroscopy of Multiple Coronary Arteries using Low Osmolar Contrast (ICD-10-PCS; 2016-07-09)
PROC: 4A023N7 Measurement of Cardiac Sampling and Pressure, Left Heart, Percutaneous Approach (ICD-10-PCS; 2016-07-09)
PROC: 05HM33Z Insertion of Infusion Device into Right Internal Jugular Vein, Percutaneous Approach (ICD-10-PCS; 2016-07-13)
PROC: B5131ZA Fluoroscopy of Right Jugular Veins using Low Osmolar Contrast, Guidance (ICD-10-PCS; 2016-07-13)
PROC: B54NZZA Ultrasonography of Left Upper Extremity Veins, Guidance (ICD-10-PCS; 2016-07-13)
PROC: 5A1D60Z (ICD-10-PCS; 2016-07-18)
PROC: 05PY03Z Removal of Infusion Device from Upper Vein, Open Approach (ICD-10-PCS; 2016-07-28)
PROC: 05HM33Z Insertion of Infusion Device into Right Internal Jugular Vein, Percutaneous Approach (ICD-10-PCS; 2016-07-28)
PROC: B543ZZA Ultrasonography of Right Jugular Veins, Guidance (ICD-10-PCS; 2016-07-28)
DX: I21.4 Non-ST elevation (NSTEMI) myocardial infarction (principal); J96.01 Acute respiratory failure with hypoxia; I63.9 Cerebral infarction, unspecified; A41.01 Sepsis due to Methicillin susceptible Staphylococcus aureus; R57.0 Cardiogenic shock; I47.2 Ventricular tachycardia; N17.9 Acute kidney failure, unspecified; K56.60 Unspecified intestinal obstruction; N18.6 End stage renal disease; R65.20 Severe sepsis without septic shock; I50.23 Acute on chronic systolic (congestive) heart failure; E43 Unspecified severe protein-calorie malnutrition; I12.0 Hypertensive chronic kidney disease with stage 5 chronic kidney disease or end stage renal disease; J90 Pleural effusion, not elsewhere classified; G90.50 Complex regional pain syndrome I, unspecified; J98.11 Atelectasis; G81.91 Hemiplegia, unspecified affecting right dominant side; N39.0 Urinary tract infection, site not specified; I82.A11 Acute embolism and thrombosis of right axillary vein; I82.621 Acute embolism and thrombosis of deep veins of right upper extremity; E11.22 Type 2 diabetes mellitus with diabetic chronic kidney disease; J44.9 Chronic obstructive pulmonary disease, unspecified; I48.91 Unspecified atrial fibrillation; E78.5 Hyperlipidemia, unspecified; F17.210 Nicotine dependence, cigarettes, uncomplicated; I25.5 Ischemic cardiomyopathy; K29.70 Gastritis, unspecified, without bleeding; N18.9 Chronic kidney disease, unspecified; I36.1 Nonrheumatic tricuspid (valve) insufficiency; I25.10 Atherosclerotic heart disease of native coronary artery without angina pectoris; B96.89 Other specified bacterial agents as the cause of diseases classified elsewhere; Z88.3 Allergy status to other anti-infective agents; Z80.3 Family history of malignant neoplasm of breast; Z88.5 Allergy status to narcotic agent; Z85.41 Personal history of malignant neoplasm of cervix uteri; Z99.2 Dependence on renal dialysis; N18.3 Chronic kidney disease, stage 3 (moderate); G72.9 Myopathy, unspecified; F32.9 Major depressive disorder, single episode, unspecified
CPT/HCPCS: 31720; 32555; 36415; 36558; 36581; 36600; 70450; 70551; 71010; 71250; 72141; 74000; 74176; 74230; 77001; 80048; 80053; 80061; 80069; 80074; 80076; 81001; 82140; 82150; 82330; 82465; 82533; 82550; 82553; 82607; 82746; 82805; 82945; 82962; 83036; 83605; 83615; 83690; 83735; 83880; 83986; 84100; 84132; 84134; 84145; 84157; 84439; 84443; 84484; 85014; 85018; 85025; 85347; 85576; 85610; 85730; 86850; 86900; 86901; 86920; 87015; 87070; 87077; 87086; 87102; 87116; 87186; 87205; 87389; 87641; 88112; 88305; 89051; 92610-GN; 92611-GN; 93005; 93308; 93321; 93325; 93452; 93458; 93880; 93970; 93971; 94002; 94003; 94640; 94660; 94667; 94668; 94770; 97110-GO; 97110-GP; 97163-GP; 97164-GP; 97167-GO; 97168-GO; 97530-GO; 97530-GP; 97535-GO; 99152; 99153; A9270-GY; C1725; C1750; C1769; C1874; C1887; C1894; C8929; C9113; C9600; G0257; G0463; J0282; J0360; J0583; J0610; J0690; J0692; J1205; J1720; J2250; J2370; J2405; J2550; J2690; J2997; J3010; J3430; P9016; P9047; P9059; Q9957; Q9967